=== PATIENT | male | born 1950 | race Caucasian/White ===

== ENCOUNTER 2020-09-18 12:48 | Emergency (ER) | payer OTHER ==
--- OUTSIDE RECORDS SUMMARY | 2020-09-18 12:53 | XMS REPORT | Continuity of Care Document ---
:1950 Author Organization [facility] t Address [address] [place] [address] Care Team Providers Name Role Phone Unavailable Unavailable Unavailable Payers Payer Name Policy Type Policy Number Effective Date Expiration Date S ource Problems This patient has no known problems. Allergies, Adverse Reactions, Alerts Allergy Allergy Status Severity Reaction(s) Onset Inactive Treating Comm ents Source Name Type Date Date Clinician No Known DA Active U 2020-0 [facility]30 Clear s 00:00: Arzola 00 [facility] No Known DA Active U 2020-0 [facility] Allergie 4-29 Clear s 00:00: Arzola 00 [facility] Medications This patient has no known medications. Procedures This patient has no known procedures. Results Test Description Test Time Test Comments Results Result Comments Source Novel Coronavirus 20182019-10-21 19:32:00 Test Item Value Reference Range Interpretation Comme nts Novel Coronavirus 2018 Negative Negative Posit veronica results are indicative of the Inhouse (test code = presenc e [id number]-4 RNA, clinical [id number]) correlation wit h patient historyand other diagnosti c information is necessary to de terminepatient infection status. Positiv e results do not rule outbacterial in fection or co-infection with other viru ses. Negative results do not preclude SA RS-CoV-2 infection andshould not b e used as the sole basis for patient man agementdecisions. Negative result s must be combined with otherclinical o bservations, patient history, and ep idemiologicalinformation. Detection of SA RS-CoV-2 RNA may be affected bysamp le collection methods, storage conditi ons, and/or stageof infection. Natali l RNA mutations, vaccinations, a ntiviraltherapeutics, antibiotics, ch emotherapeutic orimmunosuppres anand drugs have not been evaluated for e ffectson detection. Results are for the identification of SARS-CoV-2 RNA usingthe MembraneX M2000 System under th e FDA Emergency UseAuthorizatio n. The testing is performed by mindy rsonneltrained in the procedures for the MembraneX M2000 molecularKALo stic SARS-CoV-2 assay in vitro. Testing Criteria: Preprocedure Screening- XR CHEST 2 [id number] 11:06:00 FAX: Magdi Dennison MD [phone] [place]: St: PRE Name: CANELO DODD [facility] : 1950 Age/S: 69/M [address] [place] [address] Unit#: [id number] Loc: [place] [address] Phys: Magdi Carson MD Acct: [id number] Dis Date: Status: PRE SD C PHONE #: [phone] Exam Date: 10/21/2019 1023 FAX #: [phone] Reason: PRE-OP PENILE IMPLANT EXAMS: CPT CODE: [id number] XR CHEST 2 V [id number] Chest 2 view 10/21/2019 HISTORY: Preoperative exam. No prior exams are available for comparison FINDINGS: Right shoulder prosthesis is noted. Prominent aortic arch is noted. Heart size is at the upper limits of normal. Right lateral pleural thickening is noted. Old right rib fractures are present. Noacute consolidation or pleural effusion is present. No vascular congestion or interstitial edema is present. IMPRESSION: No acute cardiopulmonary process. SL: [id number] at 1106 Reported and signed by: Philip Bhakta M.D. CC: Magdi Carson MD Technologist: BILLY AlatorreR) Trnscrd Date/Time/By: 10/21/2019 (1106) : By: [email or web address] Orig Print D/T: S: 10/21/2019 (2952) PAGE 1 Signed ReportBASIC METABOLIC [id number] 10:08:00 Test Item Value Reference Range Interpretation Comments SODIUM (test code = NA) 128 mEq/L 134-147 L POTASSIUM (test code = 4.3 mEq/L 3.4-5.0 N K) CHLORIDE (test code = 96 mEq/L 100-108 L CL) CARBON DIOXIDE (test 26 mEq/L 21-33 N code = CO2) ANION GAP (test code = 10 0-20 N GAP) GLUCOSE (test code = 83 mg/dL 70-110 N GLU) BLOOD UREA NITROGEN 16 mg/dL 7-18 N (test code = BUN) GLOMERULAR FILTRATION 73.7 70-80 N Units of measure = RATE (test code = GFR) ml/mi n/1.73 m2 CREATININE (test code = 1.0 mg/dL 0.6-1.3 N CREAT) CALCIUM (test code = 9.6 mg/dL 8.0-10.5 N CA) PROTHROMBIN [id number] 10:07:00 Test Item Value Reference Range Interpretation Comments PROTHROMBIN TIME 11.5 SECONDS 9.3-12.9 N PATIENT (test code = PTP) INTERNATIONAL NORMAL 1.1 0.8-1.2 N TARGET RATIO (test code = INR BY IN DICATION INR) Indication INR1. Prophyl axis of venous thrombos is 2.0 - 3. 0 (orthopedic [place]), Prophylaxis of venous thrombos is (other than hig h-risk surgery), [place] tment of Deep Vein Thrombosis/Pulm onary Embolism, Preve ntion of systemic emb olism - Tissue heart va lves, Acute Myocardia l Infarction (to prevent systemic embo lism), Valvular heart disease, Atri al Fibrillation, Bileaflet mecha nical valve in aortic position.2. Mec hanical prosthetic valv es (high risk), 2.5 - 3.5 Presence of Lupus Anticoagu lant or Antiphospholi pid Antibodies, Pre vention of systemic e mbolism - Acute Myocard ial Infarction (t o prevent recurre nt infarct). THROMBOPLASTIN TIME [id number] 10:07:00 Test Item Value Reference Range Interpretation Comments THROMBOPLASTIN TIME 30.0 Seconds 25.0-39.5 N Ther apeutic PARTIAL (test code = Range: 50.4 - 88.3 PTT) Seconds Effective 10/07/2018 BASIC METABOLIC [id number] 10:06:00 Test Item Value Reference Range Interpretation Comments SODIUM (test code = NA) 128 mEq/L 134-147 L POTASSIUM (test code = K) 4.3 mEq/L 3.4-5.0 N CHLORIDE (test code = CL) 96 mEq/L 100-108 L CARBON DIOXIDE (test code = CO2) 26 mEq/L 21-33 N ANION GAP (test code = GAP) 10 0-20 N GLUCOSE (test code = GLU) 83 mg/dL 70-110 N BLOOD UREA NITROGEN (test code = 16 mg/dL 7-18 N BUN) GLOMERULAR FILTRATION RATE (test 70-80 code = GFR) CREATININE (test code = CREAT) mg/dL 0.6-1.3 CALCIUM (test code = CA) 9.6 mg/dL 8.0-10.5 N URINALYSIS [id number] 10:02:00 Test Item Value Reference Range Interpretation Comments UA COLOR (test code = COLU) YELLOW YEL/STRAW UA APPEARANCE (test code = CLEAR CLEAR APPU) UA GLUCOSE DIPSTICK (test code NEGATIVE NEGATIVE = DGLUU) UA BILIRUBIN DIPSTICK (test NEGATIVE NEGATIVE code = BILU) UA KETONE DIPSTICK (test code NEGATIVE NEGATIVE = KETU) UA SPECIFIC GRAVITY (test code 1.009 1.005-1.030 N = SGU) UA BLOOD DIPSTICK (test code = NEGATIVE NEGATIVE BECKA) UA PH DIPSTICK (test code = 6.0 5.0-7.0 N TISH) UA PROTEIN DIPSTICK (test code NEGATIVE NEGATIVE = PROU) UA UROBILINIOGEN DIPSTICK 0.2 mg/dL 0.2-1.0 (test code = URO) UA NITRITE DIPSTICK (test code NEGATIVE NEGATIVE = SNOW) UA LEUKOCYTE ESTERASE DIPSTICK NEGATIVE NEGATIVE (test code = LEUU) UA RBC (test code = RBCU) 0-3 RBC/HPF 0-3 UA WBC NO REFLEX (test code = 0-3 WBC/HPF 0-3 WBCUCL) UA BACTERIA (test code = BACU) NONE SEEN /HPF NONE SEEN UA SQUAMOUS CELLS (test code = NONE SEEN /HPF NONE SEEN SQU) UA SPERM (test code = SPERMU) 1+ /HPF NONE SEEN A CBC W/AUTO [id number] 09:57:00 Test Item Value Reference Range Interpretation Comments WHITE BLOOD CELL (test code = 5.80 x10 3/uL 4.5-11.0 N WBC) RED BLOOD CELL (test code = 5.08 x10 6/uL 4.00-5.60 N RBC) HEMOGLOBIN (test code = HGB) 15.2 g/dL 12.5-16.9 N HEMATOCRIT (test code = HCT) 44.3 % 37.5-50.7 N MEAN CELL VOLUME (test code = 87.2 fL 81.0-99.0 N MCV) MEAN CELL HGB (test code = MCH) 29.9 pg 27.0-33.0 N MEAN CELL HGB CONCETRATION 34.3 g/dL 33.0-37.0 N (test code = MCHC) RED CELL DISTRIBUTION WIDTH CV 12.7 % 11.5-14.5 N (test code = RDW) RED CELL DISTRIBUTION WIDTH SD 40.4 fL 37.0-54.0 N (test code = RDW-SD) PLATELET COUNT (test code = 221 x10 3/uL 150-400 N PLT) MEAN PLATELET VOLUME (test code 9.6 fL 7.0-9.0 H = MPV) NEUTROPHIL % (test code = NT%) 69.2 % 56.0-77.0 N IMMATURE GRANULOCYTE % (test 0.3 % 0.0-2.0 N code = IG%) LYMPHOCYTE % (test code = LY%) 17.2 % 14.0-32.0 N MONOCYTE % (test code = MO%) 10.2 % 4.8-9.0 H EOSINOPHIL % (test code = EO%) 2.2 % 0.3-3.7 N BASOPHIL % (test code = BA%) 0.9 % 0.0-2.0 N NUCLEATED RBC % (test code = 0.0 % 0-0 N NRBC%) NEUTROPHIL # (test code = NT#) 4.01 x10 3/uL 2.0-7.6 N IMMATURE GRANULOCYTE # (test 0.02 x10 3/uL 0.00-0.03 N code = IG#) LYMPHOCYTE # (test code = LY#) 1.00 x10 3/uL 1.0-3.8 N MONOCYTE # (test code = MO#) 0.59 x10 3/uL 0.1-0.8 N EOSINOPHIL # (test code = EO#) 0.13 x10 3/uL 0.0-0.2 N BASOPHIL # (test code = BA#) 0.05 x10 3/uL 0.0-0.2 N NUCLEATED RBC # (test code = 0.00 x10 3/uL 0.0-0.1 N NRBC#) MANUAL DIFF REQUIRED (test code NO = MDIFF)
--- NOTE | 2020-09-18 13:16 | ER ---
Nurse's Notes [facility] Name: Jerardo Tamez Age: 70 yrs Sex: Male : 1950 Arrival Date: 09/18/2020 Time: 12:52 Bed 4 Private MD: Diagnosis: Sciatica, right side Presentation: 09/18 13:00 Chief complaint: Patient states: R lower back pain that radiates down right leg for 3 ll1 months. Coronavirus screen: Client denies travel out of the [place] in the last 14 days. At this time, the client does not indicate any symptoms associated with coronavirus-19. Ebola Screen: Patient denies travel to an Ebola-affected area in the 21 days before illness onset. Initial Sepsis Screen: Does the patient meet any 2 criteria? No. Patient's initial sepsis screen is negative. Does the patient have a suspected source of infection? Yes: Bone or joint infection. Risk Assessment: Do you want to hurt yourself or someone else? Patient reports no desire to harm self or others. Onset of symptoms was July 21, 2020. 13:00 Method Of Arrival: Ambulatory ll1 13:00 Acuity: DENNY 4 ll1 Historical: - Allergies: 13:43 No Known Allergies; ss - PMHx: 13:00 Hypertension; PTSD; ll1 - PSHx: 13:00 Tonsillectomy; Adenoids; pnuemothorax; Hernia repair; R total shoulder; ll1 - Immunization history:: Flu vaccine is up to date. - Social history:: Smoking status: Patient denies any tobacco usage or history of. Screenin:27 Abuse screen: Denies threats or abuse. Denies injuries from another. Nutritional ss screening: No deficits noted. Tuberculosis screening: Never had TB. Fall Risk None identified. Assessment: 13:27 General: Appears uncomfortable, Behavior is calm, cooperative, Denies fever, feeling ss ill, fatigue, chills, Pt states, "I got [facility]. I just needed some kind of relief.". Pain: Complains of pain in right low back Pain radiates to right leg Pain currently is 10 out of 10 on a pain scale. Quality of pain is described as sharp, stabbing, Pain began 3 months ago Is continuous. Neuro: Level of Consciousness is awake, alert, obeys commands, Oriented to person, place, time, situation, [employer] Specialist are equal bilaterally. Cardiovascular: Capillary refill < 3 seconds is brisk in bilateral fingers Patient's skin is warm and dry. Respiratory: Airway is patent Respiratory effort is even, unlabored, Respiratory pattern is regular, symmetrical. GI: No signs and/or symptoms were reported involving the gastrointestinal system. Patient currently denies abdominal pain. : Denies burning with urination, inability to void, urinary frequency. EENT: Nares are clear. Derm: Skin is intact, is healthy with good turgor, Skin is dry, Skin is pink, warm \\T\\ dry. normal. Musculoskeletal: Circulation, motion, and sensation intact. Range of motion: intact in all extremities, Swelling absent. Vital Signs: 13:00 BP 190 / 94; Pulse 61; Resp 17; Temp 97.9; Pulse Ox 97% ; Weight 75.75 kg; Height 5 ft. ll1 7 in. (170.18 cm); Pain 10/10; 13:00 Body Mass Index 26.16 (75.75 kg, 170.18 cm) ll1 ED Course: 12:52 Patient arrived in ED. mr 13:00 Arm band placed on Patient placed in an exam room, on a stretcher. ll1 13:02 Triage completed. ll1 13:03 Rizwana Serrato FNP-C is [facility]. kb 13:03 Israel Dumont MD is Attending Physician. kb 13:18 Susannah Martin, NGUYEN is Primary Nurse. ca1 13:27 Patient has correct armband on for positive identification. Bed in low position. Call ss light in reach. Pt's service dog remains at bedside on leash. 13:27 No provider procedures requiring assistance completed. Patient did not have IV access ss during this emergency room visit. Administered Medications: 13:26 Drug: SOLU-Medrol 125 mg Route: IM; Site: left gluteus; ss 13:43 Follow up: Response: No adverse reaction ss Outcome: 13:15 Discharge ordered by . kb 13:43 Discharged to home ambulatory. ss 13:43 Condition: good 13:43 Discharge instructions given to patient, Instructed on discharge instructions, follow up and referral plans. medication usage, Demonstrated understanding of instructions, follow-up care, medications, Prescriptions given X 2. 13:44 Patient left the ED. ss Signatures: Rizwana Serrato, RAFAEL-Savanah BINDERY MACHINE SETTER/SET UP OPERATOR-Elaine Castro mr Maritza Adorno, RN RN ss Susannah Martin, RN RN ca1 Gaye Moreland RN RN ll1
--- NOTE | 2020-09-18 13:16 | EDPHYS ---
Physician Documentation [facility] Name: Jerardo Tamez Age: 70 yrs Sex: Male : 1950 Arrival Date: 09/18/2020 Time: 12:52 Bed 4 Private MD: ED Physician Israel Dumont HPI: 09/18 13:11 This 70 yrs old Male presents to ER via Ambulatory with complaints of Back kb Pain, Leg Pain. 13:11 The patient presents with pain that is acute. The symptoms are located in the right low kb back. Onset: The symptoms/episode began/occurred 3 month(s) ago. The pain radiates to the right hamstring. Associated signs and symptoms: The patient has no apparent associated signs or symptoms. The problem was sustained without known cause. Modifying factors: The patient symptoms are alleviated by nothing, the patient symptoms are aggravated by sitting. Severity of symptoms: At their worst the symptoms were moderate, in the emergency department the symptoms are unchanged. The patient has experienced similar episodes in the past, several times. The patient has been recently seen by a physician:. "My sciatica is acting up." Pt reports he was seen at the OR for this when it started 3 months ago. States they gave an injection of toradol and sent him home on diclofenac, but it hasn't helped. He went back last week and was given another injection of toradol, prescribed steroids this time that were supposed to come in the mail, but haven't. States he came in today because it is hard to sit on the right side due to pain. Denies injury/trauma. Denies urinary symptoms. Denies fever, numbness, tingling. . Historical: - Allergies: 13:43 No Known Allergies; ss - PMHx: 13:00 Hypertension; PTSD; ll1 - PSHx: 13:00 Tonsillectomy; Adenoids; pnuemothorax; Hernia repair; R total shoulder; ll1 - Immunization history:: Flu vaccine is up to date. - Social history:: Smoking status: Patient denies any tobacco usage or history of. ROS: 13:10 Constitutional: Negative for fever, chills, and weight loss, MS/Extremity: Negative for kb injury and deformity, Skin: Negative for injury, rash, and discoloration, Neuro: Negative for headache, weakness, numbness, tingling, and seizure. 13:10 Back: Positive for pain at rest, pain with movement, of the right low back. Exam: 13:10 Constitutional: This is a well developed, well nourished patient who is awake, alert, kb and in no acute distress. Head/Face: Normocephalic, atraumatic. Respiratory: Respirations even and unlabored. No increased work of breathing, no retractions or nasal flaring. Skin: Warm, dry with normal turgor. Normal color. MS/ Extremity: Pulses equal, no cyanosis. Neurovascular intact. Full, normal range of motion. Neuro: Awake and alert, GCS 15, oriented to person, place, time, and situation. Moves all extremities. Normal gait. 13:10 Back: pain, that is moderate, of the right low back, ROM is normal, normal spinal alignment noted, vertebral tenderness, is not appreciated. Vital Signs: 13:00 BP 190 / 94; Pulse 61; Resp 17; Temp 97.9; Pulse Ox 97% ; Weight 75.75 kg; Height 5 ft. ll1 7 in. (170.18 cm); Pain 10/10; 13:00 Body Mass Index 26.16 (75.75 kg, 170.18 cm) ll1 MDM: 13:03 Patient medically screened. kb 13:11 Data reviewed: vital signs, nurses notes. Data interpreted: Pulse oximetry: on room air kb is 97 %. Interpretation: normal. Counseling: I had a detailed discussion with the patient and/or guardian regarding: the historical points, exam findings, and any diagnostic results supporting the discharge/admit diagnosis, the need for outpatient follow up, a family practitioner, to return to the emergency department if symptoms worsen or persist or if there are any questions or concerns that arise at home. Administered Medications: 13:26 Drug: SOLU-Medrol 125 mg Route: IM; Site: left gluteus; ss 13:43 Follow up: Response: No adverse reaction ss Disposition: 15:03 Co-signature as Attending Physician, Israel Dumont MD. rn Disposition: 09/18/20 13:15 Discharged to Home. Impression: Sciatica, right side. - Condition is Stable. - Discharge Instructions: Sciatica, [id number]. - Prescriptions for Prednisone 20 mg Oral Tablet - take 1 tablet by ORAL route once daily for 5 days; 5 tablet. Cyclobenzaprine 10 mg Oral Tablet - take 1 tablet by ORAL route every 8 hours As needed; 21 tablet. - Medication Reconciliation Form, Thank You Letter, Antibiotic Education, Prescription Opioid Use form. - Follow up: Emergency Department; When: As needed; Reason: Worsening of condition. Follow up: Private Physician; When: 2 - 3 days; Reason: Recheck today's complaints, Continuance of care, Re-evaluation by your physician. Signatures: Rizwana Serrato, RAFAEL-C PLASTER LATHER-Israel Santoro MD MD rn Maritza Adorno RN RN ss Gaye Moreland RN RN ll1 Corrections: (The following items were deleted from the chart) 13:11 13:10 Constitutional: Negative for fever, chills, and weight loss, MS/Extremity: kb Negative for injury and deformity, Skin: Negative for injury, rash, and discoloration, Neuro: Negative for headache, weakness, numbness, tingling, and seizure, kb 13:44 13:15 09/18/2020 13:15 Discharged to Home. Impression: Sciatica, right side. Condition ss is Stable. Forms are Medication Reconciliation Form, Thank You Letter, Antibiotic Education, Prescription Opioid Use. Follow up: Emergency Department; When: As needed; Reason: Worsening of condition. Follow up: Private Physician; When: 2 - 3 days; Reason: Recheck today's complaints, Continuance of care, Re-evaluation by your physician. kb
[2020-09-18] MEDS ORDERED: METHYLPREDNISOLONE 125 MG INJ ONE (13:39)
[2020-09-18 13:56] VITALS: BP 190/94; TEMP 97.9; O2SAT 97
== END 2020-09-18 13:44 | disposition home or self-care (01) ==
LOC: ER 12:48
DX: M54.31 Sciatica, right side (principal); I10 Essential (primary) hypertension
CPT/HCPCS: 96372; 99283; J2930

== ENCOUNTER 2020-10-27 20:34 | Inpatient (IN) | payer OTHER ==
--- OUTSIDE RECORDS SUMMARY | 2020-10-27 20:37 | XMS REPORT | Continuity of Care Document ---
:1950 Author Organization [facility] t Address [address] [place] [address] Care Team Providers Name Role Phone Unavailable Unavailable Unavailable Payers Payer Name Policy Type Policy Number Effective Date Expiration Date S ource Problems This patient has no known problems. Allergies, Adverse Reactions, Alerts Allergy Allergy Status Severity Reaction(s) Onset Inactive Treating Comm ents Source Name Type Date Date Clinician No Known DA Active U 2020-0 [facility] Allergie 4-30 Clear s 00:00: Arzola 00 [facility] No Known DA Active U 2020-0 [facility] Allergie 4-29 Clear s 00:00: Arzola 00 [facility] Medications This patient has no known medications. Procedures This patient has no known procedures. Results Test Description Test Time Test Comments Results Result Comments Source Novel Coronavirus 20182019-10-21 19:32:00 Test Item Value Reference Range Interpretation Comme nts Novel Coronavirus 2018 Negative Negative Posit veronica results are indicative of the Inhouse (test code = presenc e [id number] RNA, clinical [id number]) correlation wit h patient historyand other diagnosti [...] for the identification of SARS-CoV-2 RNA usingthe Unified Inbox M2000 System under th e FDA Emergency UseAuthorizatio n. The testing is performed by mindy rsonneltrained in the procedures for the Unified Inbox M2000 molecularGreenleaf Book Groupo stic SARS-CoV-2 assay in vitro. Testing Criteria: Preprocedure Screening- XR CHEST 2 [id number] 11:06:00 FAX: Magdi Dennison MD [phone] [place]: St: PRE Name: CANELO DODD [facility] : 1950 Age/S: 69/M [address] [place] [address] Unit#: [id number] Loc: [place] [address] Phys: Magdi Carson MD Acct: [id number] Dis Date: Status: PRE SD C PHONE #: [phone] Exam Date: 10/21/2019 1023 FAX #: [phone] Reason: PRE-OP PENILE IMPLANT EXAMS: CPT CODE: [id number] XR CHEST 2 V [id number] Chest 2 view 10/21/2019 HISTORY: Preoperative exam. [...] present. IMPRESSION: No acute cardiopulmonary process. SL: [id number] at 1106 Reported and signed by: Philip Bhakta M.D. CC: Magdi Carson MD Technologist: BILLY AlatorreR) Trnscrd Date/Time/By: 10/21/2019 (1106) : By: [email or web address] Orig Print D/T: S: 10/21/2019 (7182) PAGE 1 Signed ReportBASIC METABOLIC [id number] 10:08:00 Test Item Value Reference Range Interpretation [...] = 9.6 mg/dL 8.0-10.5 N CA) PROTHROMBIN [id number] 10:07:00 Test Item Value Reference Range Interpretation [...] o prevent recurre nt infarct). THROMBOPLASTIN TIME [id number] 10:07:00 Test Item Value Reference Range Interpretation Comments THROMBOPLASTIN TIME 30.0 Seconds 25.0-39.5 N Ther apeutic PARTIAL (test code = Range: 50.4 - 88.3 PTT) Seconds Effective 10/07/2018 BASIC METABOLIC [id number] 10:06:00 Test Item Value Reference Range Interpretation [...] = CA) 9.6 mg/dL 8.0-10.5 N URINALYSIS [id number] 10:02:00 Test Item Value Reference Range Interpretation [...] 1+ /HPF NONE SEEN A CBC W/AUTO [id number] 09:57:00 Test Item Value Reference Range Interpretation [...]
[2020-10-27] MEDS ORDERED: IPRATROPIUM BROM 0.5MG/2.5ML ONE (20:59)
[2020-10-27] MEDS ORDERED: ALBUTEROL 2.5 MG/3 ML NEB SOL ONE (20:59)
--- NOTE | 2020-10-27 21:33 | RAD REPORT ---
EXAM DESCRIPTION: Jerod Single View10/27/2020 9:16 pm CLINICAL HISTORY: Cough COMPARISON: 2014 FINDINGS: Old right rib fractures. Right upper lobe is hazy. Additional bilateral pulmonary opacities probably chronic. The heart is normal size IMPRESSION: Right upper lobe is hazy. This may represent a pneumonia
[2020-10-27 21:45] LABS: Absolute Lymphocytes (CBC) 0.6 K/uL (0.7-4.9); Basophils % 0.2 % (0-1.3); Hematocrit 34.2 % (39.6-49.0); Lymphocytes % 6.2 % (15.3-44.8); MPV 8.4 fL (7.6-11.3); Protime INR 1.15; RBC Red Blood Cell Count 3.86 M/uL (4.33-5.43)
[2020-10-27 21:54] LABS: Arterial Blood Carboxyhemoglob 1.9 % (0-1.5); Blood Gas Oxyhemoglobin 85.4 % (94-97); Blood O2 Saturation 87.9 % (92-98.5)
[2020-10-27 21:59] LABS: Albumin 3.3 g/dL (3.4-5.0); Bilirubin Direct 0.2 mg/dL (0-0.2); Bilirubin Total 0.6 mg/dL (0.2-1.0); Protein, Total 7.5 g/dL (6.4-8.2); Troponin (Emerg Dept Use Only) 0.21 ng/mL (0.0-0.045)
[2020-10-27 22:04] LABS: Magnesium 3.9 mg/dL (1.8-2.4)
[2020-10-27 22:24] LABS: SARS-COV-2 RT PCR NEGATIVE (NEGATIVE)
[2020-10-27 22:32] LABS: Blood Morphology Comment NOT SEEN (NOT SEEN); Platelet Estimate ADEQ
[2020-10-27] MEDS ORDERED: CEFTRIAXONE/SWI 1gm 1 GM/10 ML SYR ONE (22:38)
[2020-10-27] MEDS ORDERED: NA CHLORIDE 0.9% 250 ML ONE (22:38)
[2020-10-27] MEDS ORDERED: AZITHROMYCIN 500 MG INJ IVPB ONE (22:38)
--- NOTE | 2020-10-27 23:21 | EDPHYS ---
Physician Documentation [facility] Name: Jerardo Tamez Age: 70 yrs Sex: Male : 1950 Arrival Date: 10/27/2020 Time: 20:43 Bed 2 Private MD: ED Physician Yazan Blanc HPI: 10/27 20:59 This 70 yrs old Male presents to ER via EMS with complaints of Shortness of mh7 Breath. Generalized Weakness. 20:59 The patient has shortness of breath at rest. Onset: The symptoms/episode began/occurred mh7 at an unknown time. Duration: The symptoms are continuous, and are unchanged since they started. The patient's shortness of breath is aggravated by coughing, light activity, is alleviated by nothing. Associated signs and symptoms: Pertinent positives: productive cough, generalized weakness, Pertinent negatives: chest pain, non-productive cough, diaphoresis, dizziness, fever, hemoptysis, loss of consciousness, nausea, numbness in extremities, visual changes, vomiting. Severity of symptoms: At their worst the symptoms were moderate today, in the emergency department the symptoms are unchanged. The patient has experienced similar episodes in the past, multiple times. Historical: - Allergies: 20:50 No Known Allergies; jm8 - PMHx: 20:50 Hypertension; PTSD; COPD; jm8 - Immunization history:: Adult Immunizations up to date. - Social history:: Smoking status: unknown. ROS: 20:59 Constitutional: Negative for fever, chills, and weight loss, Eyes: Negative for injury, mh7 pain, redness, and discharge, ENT: Negative for injury, pain, and discharge, Neck: Negative for injury, pain, and swelling, Cardiovascular: Negative for chest pain, palpitations, and edema, Abdomen/GI: Negative for abdominal pain, nausea, vomiting, diarrhea, and constipation, Back: Negative for injury and pain, : Negative for injury, bleeding, discharge, and swelling, MS/Extremity: Negative for injury and deformity, Skin: Negative for injury, rash, and discoloration. 20:59 Psych: Negative for depression, anxiety, suicide ideation, homicidal ideation, and hallucinations, Allergy/Immunology: Negative for hives, rash, and allergies, Endocrine: Negative for neck swelling, polydipsia, polyuria, polyphagia, and marked weight changes, Hematologic/Lymphatic: Negative for swollen nodes, abnormal bleeding, and unusual bruising. 20:59 Neuro: Negative for altered mental status, dizziness, gait disturbance, headache, hearing loss, loss of consciousness, numbness, seizure activity, speech changes, syncope, near syncope, tingling, tinnitus, tremor, visual changes. Exam: 20:59 Head/Face: Normocephalic, atraumatic. Eyes: Pupils equal round and reactive to light, mh7 extra-ocular motions intact. Lids and lashes normal. Conjunctiva and sclera are non-icteric and not injected. Cornea within normal limits. Periorbital areas with no swelling, redness, or edema. Neck: Trachea midline, no thyromegaly or masses palpated, and no cervical lymphadenopathy. Supple, full range of motion without nuchal rigidity, or vertebral point tenderness. No Meningismus. Chest/axilla: Normal chest wall appearance and motion. Nontender with no deformity. No lesions are appreciated. Cardiovascular: Regular rate and rhythm with a normal S1 and S2. No gallops, murmurs, or rubs. Normal PMI, no JVD. No pulse deficits. 20:59 Abdomen/GI: Soft, non-tender, with normal bowel sounds. No distension or tympany. No guarding or rebound. No evidence of tenderness throughout. Back: No spinal tenderness. No costovertebral tenderness. Full range of motion. Skin: Warm, dry with normal turgor. Normal color with no rashes, no lesions, and no evidence of cellulitis. MS/ Extremity: Pulses equal, no cyanosis. Neurovascular intact. Full, normal range of motion. Neuro: Awake and alert, GCS 15, oriented to person, place, time, and situation. Cranial nerves II-XII grossly intact. Motor strength 5/5 in all extremities. Sensory grossly intact. Cerebellar exam normal. Normal gait. Psych: Awake, alert, with orientation to person, place and time. Behavior, mood, and affect are within normal limits. 20:59 Constitutional: The patient appears alert, awake, in obvious distress, mildly distressed. 20:59 Respiratory: mild respiratory distress is noted, Respirations: prolonged exhalation, that is moderate, Breath sounds: decreased breath sounds, that are moderate, are scattered, rhonchi, that are moderate, are scattered, Respiratory rate: 24 Vital Signs: 20:45 BP 116 / 60; Pulse 84; Resp 24; Temp 100.1; Pulse Ox 49% on R/A; Weight 74.84 kg; [facility] Height 5 ft. 9 in. (175.26 cm); Pain 0/10; 21:25 BP 95 / 60; Pulse 75; Resp 16; Pulse Ox 96% on BiPAP; [facility] 10/28 00:12 BP 113 / 78; Pulse 70; Resp 16; Pulse Ox 100% on BiPAP; [facility] 10/27 20:45 Body Mass Index 24.37 (74.84 kg, 175.26 cm) [facility] MDM: 10/27 23:11 Differential diagnosis: Anemia Anxiety Reaction asthma, Bronchitis CHF exacerbation, [facility] Chronic Obstructive Pulmonary Disease. 23:15 Data reviewed: vital signs, nurses notes, EMS record, old medical records, lab test [facility] result(s), cardiac enzymes, CBC, electrolytes, urinalysis, EKG, radiologic studies, CT scan, plain films. 23:19 Data interpreted: Pulse oximetry: on BiPAP is 99 %. Interpretation: acceptable. [facility] Counseling: I had a detailed discussion with the patient and/or guardian regarding: the historical points, exam findings, and any diagnostic results supporting the discharge/admit diagnosis, lab results, radiology results, the need for further work-up and treatment in the hospital. Response to treatment: the patient's symptoms have markedly improved after treatment. 23:21 Patient medically screened. [facility] 10/27 20:44 Order name: Basic Metabolic Panel [facility] 10/27 20:44 Order name: CBC with Diff [facility] 10/27 20:44 Order name: LFT's [facility] 10/27 20:44 Order name: Magnesium [facility] 10/27 20:44 Order name: NT PRO-BNP; Complete Time: 22:11 [facility] 10/27 20:44 Order name: PT-INR; Complete Time: 22:11 [facility] 10/27 20:44 Order name: Troponin (emerg Dept Use Only); Complete Time: 22:11 [facility] 10/27 20:44 Order name: Basic Metabolic Panel; Complete Time: 22:11 [facility] 10/27 20:44 Order name: CBC with Automated Diff; Complete Time: 22:54 [facility] 10/27 20:44 Order name: Liver (Hepatic) Function; Complete Time: 22:11 [facility] 10/27 20:44 Order name: Magnesium; Complete Time: 22:11 [facility] 10/27 21:35 Order name: Arterial Blood Gas; Complete Time: 22:11 [facility] 10/27 20:44 Order name: XRAY Chest (1 view); Complete Time: 22:11 [facility] 10/27 20:44 Order name: EKG; Complete Time: 20:45 [facility] 10/27 20:44 Order name: Cardiac monitoring; Complete Time: 21:37 [facility] 10/27 20:58 Order name: CT Head Brain wo Cont [facility] 10/27 22:08 Order name: Manual Differential; Complete Time: 22:54 [facility] 10/27 22:13 Order name: Blood Culture Adult (2) [facility] 10/27 22:13 Order name: Lactate; Complete Time: 23:05 [facility] 10/27 22:13 Order name: Procalcitonin [facility] 10/27 22:15 Order name: Blood Culture [facility] 10/27 22:24 Order name: COVID-19/FLU A+B; Complete Time: 22:54 [facility] 10/27 23:37 Order name: CONS Physician Consult [facility] 10/28 00:07 Order name: Urine Dipstick-Ancillary [facility] 10/27 20:44 Order name: EKG - Nurse/Tech; Complete Time: 21:37 [facility] 10/27 20:44 Order name: IV Saline Lock; Complete Time: 21:23 [facility] 10/27 20:44 Order name: Labs collected and sent; Complete Time: 21:23 [facility] 10/27 20:44 Order name: O2 Per Protocol; Complete Time: 21:23 [facility] 10/27 20:44 Order name: O2 Sat Monitoring; Complete Time: 21:24 7 Administered Medications: Discontinued: Zithromax (azithromycin) 500 mg IVPB once over 1 hrs; mix in 250 mL NS 20:45 Drug: Albuterol - atroVENT (ipratropium) (3:1) (2.5 mg - 0.5 mg) 3 ml Route: Nebulizer; jb4 23:24 Follow up: Response: No adverse reaction; Marked relief of symptoms [facility] 22:26 Drug: Rocephin (cefTRIAXone) 1 grams Route: IV; Rate: per protocol; Site: left 8 antecubital; 23:25 Follow up: Response: No adverse reaction jm8 22:26 Drug: Zithromax (azithromycin) 500 mg Route: IVPB; Infused Over: 1 hrs; Site: left [facility] antecubital; 10/28 01:09 Follow up: Response: No adverse reaction [facility] 00:19 Drug: Aspirin Chewable Tablet 324 mg Route: PO; [facility] 01:10 Follow up: Response: No adverse reaction [facility] Disposition: 10/27/20 23:21 Hospitalization ordered by Fara Caputo for Inpatient Admission. Preliminary diagnosis are Pneumonia, Hypoxia, Elevated Troponin Level. - Bed requested for Telemetry/MedSurg (Inpatient). - Status is Inpatient Admission. 8 - Condition is Stable. - Problem is new. - Symptoms have improved. Signatures: Dispatcher [employer] EDGA Shawna Avila, NGUYEN RN tl1 Jerardo Quiroz RN RN jb4 Yazan Blanc MD MD 7 Juan Contreras RN RN jm8 Corrections: (The following items were deleted from the chart) 10/27 21:37 20:46 Influenza Screen (A \T\ B)+BA.LAB.BRZ ordered. EDGA EDGA 21:37 20:46 CORONAVIRUS+MR.LAB.BRZ ordered. EDGA EDGA 10/28 00:10 10/27 23:21 Hospitalization Ordered by Fara Caputo MD for Inpatient Admission. tl1 Preliminary diagnosis is Pneumonia, Hypoxia; Elevated Troponin Level. Bed requested for Telemetry/MedSurg (Inpatient). Status is Inpatient Admission. Condition is Stable. Problem is new. Symptoms have improved. [facility] 10/28 01:09 00:10 10/27/2020 23:21 Hospitalization Ordered by Fara aCputo MD for Inpatient [facility] Admission. Preliminary diagnosis is Pneumonia, Hypoxia; Elevated Troponin Level. Bed requested for Telemetry/MedSurg (Inpatient). Status is Inpatient Admission. Condition is Stable. Problem is new. Symptoms have improved. tl1
--- NOTE | 2020-10-27 23:21 | ER ---
Nurse's Notes [facility] Name: Jerardo Tamez Age: 70 yrs Sex: Male : 1950 Arrival Date: 10/27/2020 Time: 20:43 Bed 2 Private MD: Diagnosis: Pneumonia, Hypoxia;Elevated Troponin Level Presentation: 10/27 20:45 Chief complaint: EMS states: patient's spouse states patient has been complaining of jm8 generalized weakness for a while now. Got worse today. Patient is slow to respond. Coronavirus screen: Client denies travel out of the [place] in the last 14 days. Client presents with at least one sign or symptom that may indicate coronavirus-19. Standard/surgical mask placed on the client. Provider contacted for isolation considerations. Ebola Screen: Patient negative for fever greater than or equal to 101.5 degrees Fahrenheit, and additional compatible Ebola Virus Disease symptoms Patient denies exposure to infectious person. Patient denies travel to an Ebola-affected area in the 21 days before illness onset. Initial Sepsis Screen: Does the patient meet any 2 criteria?. 20:45 Method Of Arrival: EMS: [facility]8 20:48 Initial Sepsis Screen: Does the patient meet any 2 criteria? RR > 20 per min. Altered jm8 Mental Status. Does the patient have a suspected source of infection? No. Patient's initial sepsis screen is negative. Risk Assessment: Do you want to hurt yourself or someone else? Patient reports no desire to harm self or others. Onset of symptoms was October 27, 2020. Care prior to arrival: None. 20:48 Acuity: DENNY 2 jm8 Historical: - Allergies: 20:50 No Known Allergies; jm8 - PMHx: 20:50 Hypertension; PTSD; COPD; jm8 - Immunization history:: Adult Immunizations up to date. - Social history:: Smoking status: unknown. Screenin:54 Abuse screen: Denies threats or abuse. Denies injuries from another. Nutritional jm8 screening: No deficits noted. Tuberculosis screening: No symptoms or risk factors identified. Fall Risk None identified. Assessment: 20:50 General: Appears in no apparent distress. comfortable, Behavior is calm, cooperative, jm8 appropriate for age, drowsy. Pain: Denies pain. Neuro: Level of Consciousness is alert, obeys commands, lethargic, Oriented to person, place, time. Cardiovascular: Reports fatigue, Capillary refill < 3 seconds. Respiratory: Reports shortness of breath at rest generalized weakness Airway is patent Respiratory effort is even, unlabored, Respiratory pattern is regular, symmetrical, Patient placed on BiPAP:. GI: No deficits noted. : No deficits noted. EENT: No deficits noted. Derm: No deficits noted. Derm: Skin is intact, is healthy with good turgor, Skin is pink, warm \T\ dry. normal, Skin temperature is warm. Musculoskeletal: No deficits noted. Musculoskeletal: Range of motion: intact in all extremities. 21:36 Respiratory: Patient placed on BiPAP: Inspiratory Pressure: 18 Expiratory (EPAP) [facility] Pressure: 8 FiO2%: 50 Respiratory Rate: 18. 21:36 Cardiovascular: Rhythm is sinus rhythm. [facility] Vital Signs: 20:45 BP 116 / 60; Pulse 84; Resp 24; Temp 100.1; Pulse Ox 49% on R/A; Weight 74.84 kg; [facility] Height 5 ft. 9 in. (175.26 cm); Pain 0/10; 21:25 BP 95 / 60; Pulse 75; Resp 16; Pulse Ox 96% on BiPAP; [facility] 10/28 00:12 BP 113 / 78; Pulse 70; Resp 16; Pulse Ox 100% on BiPAP; [facility] 10/27 20:45 Body Mass Index 24.37 (74.84 kg, 175.26 cm) [facility] ED Course: 10/27 20:43 Patient arrived in ED. [facility] 20:43 Yazan Blanc MD is Attending Physician. [facility] 20:49 Triage completed. 8 20:55 Patient has correct armband on for positive identification. Bed in low position. Call [facility] light in reach. Side rails up X2. 20:55 Arm band placed on right wrist. jm8 21:16 XRAY Chest (1 view) In Process Unspecified. EDMS 21:26 Inserted saline lock: 18 gauge in left antecubital area, using aseptic technique. jm8 22:44 CT Head Brain wo Cont In Process Unspecified. EDMS 23:19 Fara Caputo MD is Hospitalizing Provider. [facility] 23:25 Vivienne Garcia, NGUYEN is Primary Nurse. 10/28 01:07 No provider procedures requiring assistance completed. Patient admitted, IV remains in [facility] place. Administered Medications: Discontinued: Zithromax (azithromycin) 500 mg IVPB once over 1 hrs; mix in 250 mL NS 10/27 20:45 Drug: Albuterol - atroVENT (ipratropium) (3:1) (2.5 mg - 0.5 mg) 3 ml Route: Nebulizer; [facility] 23:24 Follow up: Response: No adverse reaction; Marked relief of symptoms [facility] 22:26 Drug: Rocephin (cefTRIAXone) 1 grams Route: IV; Rate: per protocol; Site: left [facility] antecubital; 23:25 Follow up: Response: No adverse reaction [facility] 22:26 Drug: Zithromax (azithromycin) 500 mg Route: IVPB; Infused Over: 1 hrs; Site: left [facility] antecubital; 10/28 01:09 Follow up: Response: No adverse reaction [facility] 00:19 Drug: Aspirin Chewable Tablet 324 mg Route: PO; [facility] 01:10 Follow up: Response: No adverse reaction [facility] Outcome: 10/27 23:21 Decision to Hospitalize by Provider. [facility] 10/28 01:08 Admitted to Med/surg accompanied by nurse, via stretcher. [facility] Condition: good Instructed on the need for admit. 01:09 Patient left the ED. [facility] Signatures: Dispatcher [employer] Vivienne Mccormick, NGUYEN CEDILLO Jerardo Quiroz RN RN [facility] Yazan Blanc MD MD [facility] Juan Contreras RN RN [facility]
[2020-10-27] MEDS ORDERED: ASPIRIN 81 MG CHEWABLE TABLET ONE (23:45)
[2020-10-28 00:07] LABS: Urine Blood Trace-intact (Negative); Urine Glucose Negative (Negative); Urine Protein 2+ (Negative); Urine Specific Gravity 1.025 (1.005-1.030)
[2020-10-28] MEDS ORDERED: ACETAMINOPHEN 500 MG TAB PO PRN (01:23)
[2020-10-28] MEDS ORDERED: NA CHLORIDE 0.9% 1,000 ML IV SCH ×3 (01:23→21:08)
[2020-10-28] MEDS ORDERED: BENZONATATE 100 MG CAP PO PRN (01:23)
[2020-10-28] MEDS ORDERED: ONDANSETRON 4 MG/2 ML VIAL IV PRN (01:23)
[2020-10-28 01:29] VITALS: BMI 22.6
[2020-10-28] MEDS: IPRATROPIUM BROM 0.5MG/2.5ML NEB SCH ×4 (01:50→19:40)
[2020-10-28] MEDS: METHYLPREDNISOLONE 40 MG INJ IV SCH ×4 (02:24→17:53)
[2020-10-28] MEDS: MORPHINE 2 MG/ML SYR IV PRN ×3 (02:25→17:52)
[2020-10-28] MEDS: HEPARIN 5000 UNIT/ML 1 ML VIAL SQ SCH ×3 (02:25→09:59)
--- NOTE | 2020-10-28 03:00 | P.HP ---
Certification for Inpatient Patient admitted to: Inpatient With expected LOS: >2 Midnights Patient will require the following post-hospital care: None Practitioner: I am a practitioner with admitting privileges, knowledge of patient current condition, hospital course, and medical plan of care. Services: Services provided to patient in accordance with Admission requirements found in Title 42 Section 412.3 of the Code of Federal Regulations <Ashok Rubio - Last Filed: 10/28/20 02:54> Patient History Date of Service: 10/28/20 Reason for admission: pneumonia History of Present Illness: Mr. Tamez is a 70 yo M with COPD and HTN here today for increased SOB and HATFIELD for the past week. Sats of 49% on arrival, improved on BiPAP. He reports cough productive of green sputum, wheezing, and malaise. Denies nausea, vomiting, diarrhea, night sweats and chills. COVID negative. CXR consistent with pneumonia. He says he has been feeling weak for the past 4 months. Na 128. Cl 89. BUN 41. Cr 1.89. GFR 35. Mg 3.9. Ca 10.5. BNP 1049. procal 3.47. trop 0.21. Urine dipstick - blood, 2+ protein. - Past Medical/Surgical History Has patient received pneumonia vaccine in the past: No -: HTN,PTSD,COPD Past Surgical History: Reviewed- Non-Contributory - Family History Family History: Reviewed- Non-Contributory - Social History Smoking Status: Never smoker Alcohol use: No CD- Drugs: No Caffeine use: No Place of Residence: Home <Ashok Rubio - Last Filed: 10/28/20 02:54> Date of Service: 10/28/20 <Fara Caputo - Last Filed: 10/30/20 10:00> Allergies No Known Allergies Allergy (Verified 10/28/20 02:08) Review of Systems General: Weakness, Malaise, As per HPI Eyes: Unremarkable ENT: Unremarkable Respiratory: Cough, Shortness of Breath, SOB with Excertion, Sputum, Wheezing, As per HPI Cardiovascular: Unremarkable Gastrointestinal: Unremarkable Genitourinary: Unremarkable Musculoskeletal: Leg Pain (sciatica) Integumentary: Unremarkable Neurological: Unremarkable Lymphatics: Unremarkable <Ashok Rubio - Last Filed: 10/28/20 02:54> Physical Examination - Vital Signs Temperature: 100.1 F Blood Pressure: 113/78 Pulse: 70 Respirations: 16 - Physical Exam General: Alert, Oriented x3, Cooperative, Other (on BiPAP) HEENT: Atraumatic, Normocephalic, PERRLA, Mucous membr. moist/pink, EOMI, Sclerae nonicteric Neck: Supple, 2+ carotid pulse no bruit, JVD not distended, No Thyromegaly, No LAD Respiratory: Diminished, Rhonchi/gurgles Cardiovascular: No edema, Normal pulses, Regular rate/rhythm, Normal S1 S2, No gallops, No rubs, No murmurs Capillary refill: <2 Seconds Gastrointestinal: Normal bowel sounds, Soft and benign, Non-distended, No ascites, No tenderness, No masses, No rebound, No guarding Musculoskeletal: No clubbing, No swelling, No contractures, No erythema, No tenderness, No warmth Integumentary: No rashes, No breakdown, No significant lesion, No tenderne ss/swelling, No erythema, No warmth, No cyanosis Neurological: Normal strength at 5/5 x4 extr, Normal tone, Sensation intact, Cranial nerves 3-12 intact, Normal affect Lymphatics: No axilla or inguinal lymphadenopathy - Studies Laboratory Data (last 24 hrs) 10/27/20 21:19: PT 13.2 H, INR 1.15 10/27/20 21:19: WBC 9.10, Hgb 12.0 L, Hct 34.2 L, Plt Count 236 10/27/20 21:19: Sodium 128 L, Potassium 5.0, BUN 41 H, Creatinine 1.89 H, Glucose 101, Magnesium 3.9 H*, Total Bilirubin 0.6, AST 42 H, ALT 33, Alkaline Phosphatase 68 <Ashok Rubio S - Last Filed: 10/28/20 02:54> Assessment and Plan - Problems (Diagnosis) (1) Pneumonia Current Visit: Yes Status: Acute Qualifiers: Pneumonia type: due to unspecified organism Laterality: right Lung location: upper lobe of lung Qualified Code(s): J18.9 - Pneumonia, unspecified organism (2) Hypoxia Current Visit: Yes Status: Acute (3) RAJWINDER (acute kidney injury) Current Visit: Yes Status: Acute (4) Hypermagnesemia Current Visit: Yes Status: Acute (5) Elevated troponin Current Visit: Yes Status: Acute (6) COPD (chronic obstructive pulmonary disease) Current Visit: Yes Status: Chronic Qualifiers: COPD type: unspecified COPD Qualified Code(s): J44.9 - Chronic obstructive pulmonary disease, unspecified (7) HTN (hypertension) Current Visit: Yes Status: Chronic Qualifiers: Hypertension type: essential hypertension Qualified Code(s): I10 - Essential (primary) hypertension - Plan Pulm consulted, respiratory therapy consulted continue BiPAP as needed, sputum culture and blood culture pending Ddimer pending, will consider VQ scan in the AM breathing treatments q6hr, IV steroids, IV antibiotics trend troponin BP currently low to stable, hold home medications nephrology consulted, continue with IVF, repeat BMP in the AM on telemetry urinalysis pending iron panel, b12 and folate pending Discharge Plan: Home Plan to discharge in: 72 Hours - Advance Directives Does patient have a Living Will: No Does patient have a Durable POA for Healthcare: No - Code Status/Comfort Care Code Status Assessed: Yes (full code) Critical Care: No Time Spent Managing Pts Care (In Minutes): 70 <Ashok Rubio - Last Filed: 10/28/20 02:54> Date of Service: 10/28/20 Chart reviewed and agree with plan of care as mentioned below <Fara Caputo - Last Filed: 10/30/20 10:00>
[2020-10-28 06:18] LABS: Albumin 2.8 g/dL (3.4-5.0); Bilirubin Total 0.5 mg/dL (0.2-1.0); Phosphorus 4.7 mg/dL (2.5-4.9); Potassium 4.9 mmol/L (3.5-5.1); Protein, Total 6.7 g/dL (6.4-8.2)
[2020-10-28 06:21] LABS: Magnesium 3.7 mg/dL (1.8-2.4)
[2020-10-28 06:28] LABS: Absolute Lymphocytes (CBC) 0.4 K/uL (0.7-4.9); Basophils % 0.4 % (0-1.3); Hematocrit 32.6 % (39.6-49.0); Lymphocytes % 5.4 % (15.3-44.8); MPV 8.7 fL (7.6-11.3); RBC Red Blood Cell Count 3.66 M/uL (4.33-5.43)
[2020-10-28 06:44] LABS: Ferritin 531.3 ng/mL (26-388); Folic Acid, (Folate) > 20.0 ng/mL (3.1-17.5); Transferrin 159 mg/dL (200-360)
--- NOTE | 2020-10-28 07:49 | EKG ---
Test Date: 2020-10-27 Test Time: 21:30:38 Student: MEASUREMENT RESULTS: Intervals: Rate: 73 [place]: 198 QRSD: 98 QT: 398 QTc: 438 [place]: P: 42 [place]: 198 QRS: -42 T: 26 INTERPRETIVE STATEMENTS: Normal sinus rhythm Left axis deviation Possible Lateral infarct, age undetermined Abnormal ECG No previous ECG available for comparison Electronically Signed On 10-28-20 07:48:15 CDT by Mikel Bethea
--- NOTE | 2020-10-28 10:06 | P.CNS ---
Date of Consult: 10/28/20 Reason for Consult: Possible pneumonia Chief Complaint: pneumonia History of Present Illness: Patient is 70 years of age had a as a history of COPD all the has not smoked for the past 32 years was admitted with severe hypoxemia currently he has been having some back problems he has been treated in [place] is been coughing more shortness of breath past admitted with possible pneumonia still very weak He was on oxygen before Allergies No Known Allergies Allergy (Verified 10/28/20 02:08) Home Medications: Amitriptyline HCl 100 mg PO DAILY 10/28/20 Cyanocobalamin [Vitamin B-12] 1,000 mcg PO DAILY 10/28/20 Fluoxetine HCl 20 mg PO TID 10/28/20 Hydralazine HCl 10 mg PO TID 10/28/20 Metoprolol Succinate [Toprol Xl] 25 mg PO DAILY 10/28/20 Mirtazapine 15 mg PO DAILY 10/28/20 Pregabalin 150 mg PO TID 10/28/20 - Past Medical/Surgical History -: HTN,PTSD,COPD - Social History Smoking Status: Unknown if ever smoked Alcohol use: No CD- Drugs: No Caffeine use: No Place of Residence: Home Review of Systems 10-point ROS is otherwise unremarkable General: Weakness Respiratory: Cough, Shortness of Breath Physical Examination Temp Pulse Resp BP Pulse Ox 97.3 F 78 18 97/54 L 95 10/28/20 04:00 10/28/20 04:00 10/28/20 04:00 10/28/20 04:00 10/28/20 04:00 General: Alert, In no apparent distress, Oriented x3 Neck: Supple Respiratory: Clear to auscultation bilaterally Cardiovascular: No edema, Regular rate/rhythm Laboratory Data (last 24 hrs) 10/27/20 21:19: PT 13.2 H, INR 1.15 10/27/20 21:19: WBC 9.10, Hgb 12.0 L, Hct 34.2 L, Plt Count 236 10/27/20 21:19: Sodium 128 L, Potassium 5.0, BUN 41 H, Creatinine 1.89 H, Glucose 101, Magnesium 3.9 H*, Total Bilirubin 0.6, AST 42 H, ALT 33, Alkaline Phosphatase 68 - Problems (1) Respiratory failure Current Visit: Yes Status: Acute Plan: Patient is 70 years of age admitted with weakness respiratory failure significant hypoxemia has some haziness in the right upper lobe acute onset of respiratory distress eased has smoked for the past 30 years has been off oxygen labs reviewed creatinine elevated possibly chronic unable to do a CT angiogram high risk for a pulmonary embolism fully anti coagulated the patient hopefully is kidney function will improve would plan to do a CT angiogram or V/Q scan renal function improving the some back problems recently continue with Rocephin the Evaristo PA lateral chest x-ray
[2020-10-28] MEDS: APIXABAN 5 MG TABLET PO SCH ×2 (13:05→22:17)
--- NOTE | 2020-10-28 13:11 | RAD REPORT ---
EXAM DESCRIPTION: RAD - Chest Single View - 10/28/2020 1:00 pm CLINICAL HISTORY: Possible pneumonia hypoxemia Chest pain. COMPARISON: Chest Single View dated 10/27/2020; THORAX WO CONTRAST dated 12/12/2014 FINDINGS: Portable technique limits examination quality. Little overall change is seen in the aeration of lungs since prior study. The heart is normal in size . Right total shoulder arthroplasty. IMPRESSION: Stable chest since 10/27/2020.
--- NOTE | 2020-10-28 17:36 | P.CNS ---
Date of Consult: 10/28/20 Reason for Consult: Hyponatremia/ CKD Requesting Physician: Fara Caputo Chief Complaint: pneumonia History of Present Illness: Mr. Tamez is a 70 yo M with COPD and HTN here today for increased SOB and HAT[place] for the past week. Sats of 49% on arrival, improved on BiPAP. He reports cough productive of green sputum, wheezing, and malaise. Denies nausea, vomiting, diarrhea, night sweats and chills. COVID negative. CXR consistent with pneumonia. He says he has been feeling weak for the past 4 months. Reports taking lots of NSAIDs for his pain prior to admission. [facility] Denies difficulty with urination but reports dark urine. 20:59 This 70 yrs old Male presents to ER via EMS with complaints of Shortness of mh7 Breath. Generalized Weakness. 20:59 The patient has shortness of breath at rest. Onset: The symptoms/episode began/occurred mh7 at an unknown time. Duration: The symptoms are continuous, and are unchanged since they started. The patient's shortness of breath is aggravated by coughing, light activity, is alleviated by nothing. Associated signs and symptoms: Pertinent positives: productive cough, generalized weakness, Pertinent negatives: chest pain, non-productive cough, diaphoresis, dizziness, fever, hemoptysis, loss of consciousness, nausea, numbness in extremities, visual changes, vomiting. Severity of symptoms: At their worst the symptoms were moderate today, in the emergency department the symptoms are unchanged. The patient has experienced similar episodes in the past, multiple times. Allergies No Known Allergies Allergy (Verified 10/28/20 02:08) Home Medications: Amitriptyline HCl 100 mg PO DAILY 10/28/20 Cyanocobalamin [Vitamin B-12] 1,000 mcg PO DAILY 10/28/20 Fluoxetine HCl 20 mg PO TID 10/28/20 Hydralazine HCl 10 mg PO TID 10/28/20 Metoprolol Succinate [Toprol Xl] 25 mg PO DAILY 10/28/20 Mirtazapine 15 mg PO DAILY 10/28/20 Pregabalin 150 mg PO TID 10/28/20 - Past Medical/Surgical History -: HTN,PTSD,COPD - Social History Smoking Status: Unknown if ever smoked Alcohol use: No CD- Drugs: No Caffeine use: No Place of Residence: Home Review of Systems 10-point ROS is otherwise unremarkable General: Weakness, Malaise Respiratory: Shortness of Breath Physical Examination Temp Pulse Resp BP Pulse Ox 97.4 F 67 18 103/69 96 10/28/20 12:00 10/28/20 12:00 10/28/20 13:05 10/28/20 12:00 10/28/20 13:05 General: Oriented x3, Cooperative, Mild distress HEENT: Atraumatic Neck: Supple Respiratory: Crackles/rales Cardiovascular: Regular rate/rhythm Gastrointestinal: Soft and benign, Non-distended Musculoskeletal: No clubbing, No contractures Integumentary: No cyanosis Neurological: Normal speech Laboratory Data (last 24 hrs) 10/27/20 21:19: PT 13.2 H, INR 1.15 10/27/20 21:19: WBC 9.10, Hgb 12.0 L, Hct 34.2 L, Plt Count 236 10/27/20 21:19: Sodium 128 L, Potassium 5.0, BUN 41 H, Creatinine 1.89 H, Glucose 101, Magnesium 3.9 H*, Total Bilirubin 0.6, AST 42 H, ALT 33, Alkaline Phosphatase 68 Imagings Data: EXAM DESCRIPTION: RAD - Chest Single View - 10/28/2020 1:00 pm CLINICAL HISTORY: Possible pneumonia hypoxemia Chest pain. COMPARISON: Chest Single View dated 10/27/2020; THORAX WO CONTRAST dated 12/12/2014 FINDINGS: Portable technique limits examination quality. Little overall change is seen in the aeration of lungs since prior study. The heart is normal in size. Right total shoulder arthroplasty. IMPRESSION: Stable chest since 10/27/2020. Conclusions/Impression: RAJWINDER likely due to excessive NSAID therapy. CKD III with proteinuria -No NSAIDs -Reduce IVF 100 ml/hr this evening Hyponatremia -Continue IVF Hypermagnesemia -Monitor level Moderate malnutrition -Encourage nutrition including protein supplementation Anemia in chronic illness Iron deficiency -Consider IV iron supplementation RUL PNA -Continue Rocephin Thank you kindly for the consultation.
[2020-10-28] MEDS ORDERED: CEFTRIAXONE 1 GM/NS 50 ML 1 GM/50 ML BAG IV SCH (21:00)
[2020-10-28] MEDS ORDERED: AZITHROMYCIN IV 500 MG in NA CHLORIDE 0.9% 250 ML IVPB SCH (21:00)
[2020-10-28] MEDS ORDERED: CEFTRIAXONE/SWI 1gm 1 GM/10 ML SYR IV SCH (21:00)
[2020-10-29] MEDS: METHYLPREDNISOLONE 40 MG INJ IV SCH ×2 (00:30→05:38)
[2020-10-29] MEDS: MORPHINE 2 MG/ML SYR IV PRN ×2 (00:40→05:39)
[2020-10-29] MEDS: IPRATROPIUM BROM 0.5MG/2.5ML NEB SCH ×4 (01:20→19:12)
[2020-10-29] MEDS ORDERED: ONDANSETRON 4 MG (ODT) TAB PO PRN (04:47)
[2020-10-29] MEDS ORDERED: ONDANSETRON 4 MG (ODT) TAB ONE (05:09)
[2020-10-29 08:32] LABS: Absolute Lymphocytes (CBC) 0.4 K/uL (0.7-4.9); Basophils % 0.1 % (0-1.3); Lymphocytes % 2.6 % (15.3-44.8); MPV 8.4 fL (7.6-11.3); RBC Red Blood Cell Count 3.62 M/uL (4.33-5.43)
[2020-10-29 08:54] LABS: Albumin 2.9 g/dL (3.4-5.0); Bilirubin Total 0.4 mg/dL (0.2-1.0); Potassium 4.7 mmol/L (3.5-5.1); Protein, Total 7.4 g/dL (6.4-8.2)
--- NOTE | 2020-10-29 09:14 | RAD REPORT ---
EXAM DESCRIPTION: CT - Head Brain Wo Cont - 10/28/2020 6:17 am CLINICAL HISTORY: WEAKNESS. TECHNIQUE: Axial, coronal, and sagittal images through the brain were performed in the absence of in travenous contrast. This exam was performed according to our departmental dose-optimization program w hich includes use of Automated Exposure Control, adjustment of the mA and/or kV according to patient size and/or use of iterative reconstruction technique. COMPARISON: None. FINDINGS: There is diffuse age-appropriate atrophy throughout the brain parenchyma. Mild periventric ular white matter changes are present, and there is mild ex vacuo dilatation of the ventricular syste m. There is no intra-axial or extra-axial bleed. There is no mass or mass effect. The visualized paranasal sinuses and mastoid air cells are patent. No fracture is identified. IMPRESSION: 1. No acute intracranial abnormality identified. 2. Chronic age-related and microvascular ischemic changes. Electronically signed by: Antonia Vickers MD 10/27/2020 10:51 PM CDT Due to temporary technical issues with the PACS/Fluency reporting system, reports are being signed by the in house radiologists without review as a courtesy to insure prompt reporting. The interpreting radiologist is fully responsible for the content of the report.
[2020-10-29] MEDS: APIXABAN 5 MG TABLET PO SCH ×2 (10:18→20:40)
[2020-10-29] MEDS ORDERED: METHYLPREDNISOLONE 125 MG INJ IV SCH (10:46)
--- NOTE | 2020-10-29 10:47 | P.PN ---
Subjective Date of Service: 10/29/20 Chief Complaint: Respiratory failure Patient is more hypoxic he was apparently placed on BiPAP he fell this morning feeling weak otherwise is alert oriented responsive denies any weakness of his extremity Review of Systems General: Weakness Respiratory: Shortness of Breath Physical Examination - Vital Signs Temperature: 98.3 F Blood Pressure: 128/70 Pulse: 95 Respirations: 31 Pulse Ox (%): 95 - Physical Exam General: Alert, In no apparent distress, Oriented x3 Neck: Supple Respiratory: Crackles/rales (Crackles on the right side) Cardiovascular: No edema, Regular rate/rhythm Gastrointestinal: Normal bowel sounds Musculoskeletal: No clubbing, No swelling Neurological: Normal speech, Normal strength at 5/5 x4 extr, Cranial nerves 3-12 intact Assessment & Plan - Problems (Diagnosis) (1) Respiratory failure Current Visit: Yes Status: Acute Plan: Patient admitted with respiratory failure possible pneumonia differential di agnosis includes pulmonary embolism he is not anti coagulated with Eliquis renal function is improving with IV fluids white count elevated blood cultures most likely contaminant the repeat chest x-ray in the morning chemistries reviewed start patient on steroids retest for castillo virus vital signs stable once is renal function is improved poly by tomorrow plan to do a CT pulmonary angiogram renal function is significantly improved seen by Nephrology
--- NOTE | 2020-10-29 11:12 | P.PN ---
Date of Service: 10/29/20 Vital Signs Temp Pulse Resp BP Pulse Ox 98.3 F 95 H 31 H 128/70 95 10/29/20 10:47 10/29/20 10:47 10/29/20 10:47 10/29/20 10:47 10/29/20 10:47 Medications Acetaminophen (Acetaminophen 500 Mg Tab) 500 mg PO Q4HP PRN PRN Reason: Pain scale 2-4 (Mild) Albuterol Sulfate (Albuterol 2.5 Mg/3 Ml Neb Daisy) 2.5 mg NEB Q6HP PRN PRN Reason: SHORTNESS OF BREATH Apixaban (Apixaban 5 Mg Tablet) 10 mg PO BID [facility] Last Admin: 10/29/20 10:18 Dose: 10 mg Documented by: Benzonatate (Benzonatate 100 Mg Cap) 100 mg PO TID PRN PRN Reason: COUGH Ceftriaxone Sodium/Sodium Chloride (Rocephin 1 Gm/10 Ml Swi Ivp) 1 gm in 10 mls @ 600 mls/hr IV Q24H [facility] Last Admin: 10/28/20 22:17 Dose: 10 mls Documented by: Sodium Chloride (Ns 1000 Ml Ivbag) 1,000 mls @ 100 mls/hr IV .Q10H [facility] Last Admin: 10/28/20 22:18 Dose: 1,000 mls Documented by: Ipratropium [place] (Ipratropium Brom 0.5mg/2.5ml) 0.5 mg NEB [id number] [facility] Last Admin: 10/29/20 07:43 Dose: 0.5 mg Documented by: Methylprednisolone Sodium Succinate (Methylprednisolone 125 Mg Inj) 80 mg IV Q12HR [facility] Morphine Sulfate (Morphine 2 Mg/Ml Syr) 2 mg IV Q6H PRN PRN Reason: Pain scale 5-7 (Moderate) Last Admin: 10/29/20 05:39 Dose: 2 mg Documented by: Ondansetron HCl (Ondansetron 4 Mg/2 Ml Vial) 4 mg IV Q6HP PRN PRN Reason: NAUSEA / VOMITING Ondansetron HCl (Ondansetron 4 Mg (Odt) Tab) 4 mg PO Q6H PRN PRN Reason: NAUSEA / VOMITING Last Admin: 10/29/20 04:51 Dose: 4 mg Documented by: Sodium Chloride (Flush Normal Saline 10 Ml) 10 ml IV BID [facility] Last Admin: 10/28/20 22:17 Dose: 10 ml Documented by: Microbiology Results 10/27/20 22:10 Blood - Blood Aerobic Blood Culture - Preliminary 10/27/20 22:10 Blood - Blood Blood Culture Gram Stain - Preliminary 10/27/20 22:10 Blood - Blood Anaerobic Blood Culture - Preliminary No growth in 24 hours. 10/27/20 22:21 Blood - Blood Aerobic Blood Culture - Preliminary 10/27/20 22:21 Blood - Blood Blood Culture Gram Stain - Preliminary 10/27/20 22:21 Blood - Blood Anaerobic Blood Culture - Preliminary No growth in 24 hours. Assessment/ Plan: Nephrology Feeling better today but still with dyspnea. Moved to a different room this morning due to a fall. Good urine output. General: Oriented x3, Cooperative, Mild distress HEENT: Atraumatic Neck: Supple Respiratory: CTA Cardiovascular: Regular rate/rhythm Gastrointestinal: Soft and benign, Non-distended Musculoskeletal: No clubbing, No contractures Integumentary: No cyanosis Neurological: Normal speech Laboratory Data (last 24 hrs) 10/27/20 21:19: PT 13.2 H, INR 1.15 10/27/20 21:19: WBC 9.10, Hgb 12.0 L, Hct 34.2 L, Plt Count 236 10/27/20 21:19: Sodium 128 L, Potassium 5.0, BUN 41 H, Creatinine 1.89 H, Glucose 101, Magnesium 3.9 H*, Total Bilirubin 0.6, AST 42 H, ALT 33, Alkaline Phosphatase 68 Imagings Data: EXAM DESCRIPTION: RAD - Chest Single View - 10/28/2020 1:00 pm CLINICAL HISTORY: Possible pneumonia hypoxemia Chest pain. COMPARISON: Chest Single View dated 10/27/2020; THORAX WO CONTRAST dated 12/12/2014 FINDINGS: Portable technique limits examination quality. Little overall change is seen in the aeration of lungs since prior study. The heart is normal in size. Right total shoulder arthroplasty. IMPRESSION: Stable chest since 10/27/2020. Conclusions/Impression: RAJWINDER likely due to excessive NSAID therapy. CKD III with proteinuria -No NSAIDs -Continue IVF 100 ml/hr Hyponatremia -Continue IVF Hypermagnesemia -Monitor level Moderate malnutrition -Encourage nutrition including protein supplementation Anemia in chronic illness Iron deficiency -Consider IV iron supplementation RUL PNA -Continue Rocephin
[2020-10-29] MEDS ORDERED: ONDANSETRON 4 MG/2 ML VIAL IM ONE (13:19)
--- NOTE | 2020-10-29 13:34 | RAD REPORT ---
EXAM DESCRIPTION: RAD - Chest Single View - 10/29/2020 1:24 pm CLINICAL HISTORY: sob Chest pain. COMPARISON: Chest Single View dated 10/28/2020; Chest Single View dated 10/27/2020 FINDINGS: Portable technique limits examination quality. Bilateral pulmonary opacities are present, slightly progressive on the right since comparative study. The heart is mildly enlarged in size. Right total shoulder arthroplasty.
[2020-10-29] MEDS ORDERED: LIDOCAINE 1% 20 ML MDV IV ONE (13:42)
[2020-10-29 14:21] LABS: Arterial Blood Carboxyhemoglob 1.1 % (0-1.5); Blood Gas Oxyhemoglobin 82.6 % (94-97); Blood O2 Saturation 84.7 % (92-98.5)
[2020-10-29] MEDS ORDERED: LORazepam 2 MG/ML VIAL IM ONE ×2 (14:36→15:02)
[2020-10-29] MEDS ORDERED: HALOPERIDOL LACT 5 MG/ML INJ IM PRN (14:37)
[2020-10-29] MEDS ORDERED: HALOPERIDOL LACT 5 MG/ML INJ ONE (14:55)
[2020-10-29] MEDS ORDERED: LORazepam 2 MG/ML VIAL ONE ×2 (14:57→20:53)
[2020-10-29] MEDS ORDERED: RSI MEDICATION KIT IV ONE (15:17)
[2020-10-29] MEDS ORDERED: MIDAZOLAM HCL 2 MG/2 ML INJ IV ONE (15:23)
[2020-10-29] MEDS ORDERED: CISATRACURIUM 40 MG in NS 100 ML IV PRN (15:34)
[2020-10-29] MEDS ORDERED: propofoL 1,000 MG/100 ML VIAL IV PRN ×2 (15:35→21:22)
[2020-10-29] MEDS ORDERED: FENTANYL CIT IV PRN (15:36)
[2020-10-29] MEDS ORDERED: NA CHLORIDE 0.9% IV PRN (15:36)
[2020-10-29] MEDS ORDERED: MIDAZOLAM HCL 2 MG/2 ML INJ ONE ×2 (15:44→23:28)
--- NOTE | 2020-10-29 15:55 | RAD REPORT ---
EXAM DESCRIPTION: RAD - Chest Single View - 10/29/2020 3:49 pm CLINICAL HISTORY: post intubation Chest pain. COMPARISON: Chest Single View dated 10/29/2020; Chest Single View dated 10/28/2020; Chest Single View da matt 10/27/2020 FINDINGS: Portable technique limits examination quality. Tip of the endotracheal tube is 2 cm above the debbie at the level of inferior margin of the aortic a rch. Enteric tube descends in the stomach. Bilateral pulmonary opacities appears similar to earlier s tudy.Heart size is upper normal.
[2020-10-29 16:22] LABS: Absolute Lymphocytes (CBC) 2.2 K/uL (0.7-4.9); Basophils % 0.2 % (0-1.3); Hematocrit 34.6 % (39.6-49.0); MPV 8.8 fL (7.6-11.3); RBC Red Blood Cell Count 3.72 M/uL (4.33-5.43)
[2020-10-29 16:23] LABS: Bilirubin Total 0.5 mg/dL (0.2-1.0); Potassium 4.9 mmol/L (3.5-5.1); Protein, Total 7.3 g/dL (6.4-8.2)
[2020-10-29] MEDS ORDERED: propofoL 1,000 MG/100 ML VIAL IV ONE (16:36)
[2020-10-29] MEDS ORDERED: FENTANYL/NS PCA 500 MCG/50 ML SYR IV PRN (16:37)
[2020-10-29 17:00] LABS: Magnesium 3.3 mg/dL (1.8-2.4)
[2020-10-29] MEDS: Levofloxacin 750mg IV 750 MG/150 ML BAG IV SCH (17:53)
[2020-10-29 17:55] LABS: Blood Gas Oxyhemoglobin 92.7 % (94-97); Blood O2 Saturation 94.9 % (92-98.5)
[2020-10-29] MEDS ORDERED: Levofloxacin500mg IV 500 MG/100 ML BAG IV SCH (18:00)
[2020-10-29] MEDS ORDERED: VANCOMYCIN 1.25 GM in NA CHLORIDE 0.9% 250 ML IVPB SCH (18:00)
[2020-10-29] MEDS: D5W 1,000 ML with NA BICARB 8.4% 50 MEQ IV SCH ×2 (18:00)
[2020-10-29] MEDS ORDERED: VANCOMYCIN 1.75 GM in NA CHLORIDE 0.9% 500 ML IVPB ONE (18:00)
[2020-10-29] MEDS ORDERED: Levofloxacin 750mg IV 750 MG/150 ML BAG IV ONE (18:11)
[2020-10-29] MEDS ORDERED: D5W 1,000 ML IV ONE (18:11)
[2020-10-29] MEDS ORDERED: SODIUM BICARB 50 MEQ/50ML VIAL ONE (18:11)
[2020-10-29] MEDS ORDERED: NA CHLORIDE 0.9% 250 ML ONE ×2 (18:12→20:53)
[2020-10-29 19:10] LABS: Blood Morphology Comment NOT SEEN (NOT SEEN); Platelet Estimate ADEQ
[2020-10-29] MEDS ORDERED: ALBUTEROL 2.5 MG/3 ML NEB SOL ONE (19:35)
[2020-10-29] MEDS ORDERED: IPRATROPIUM BROM 0.5MG/2.5ML ONE (19:36)
[2020-10-29] MEDS ORDERED: APIXABAN 5 MG TABLET ONE (20:54)
[2020-10-29] MEDS ORDERED: NA CHLORIDE 0.9% 250 ML IV PRN (21:22)
[2020-10-29] MEDS ORDERED: HALOPERIDOL LACT 5 MG/ML INJ IV PRN (21:22)
[2020-10-29] MEDS ORDERED: FENTANYL CITR 100 MCG/2 ML IV PRN (21:22)
[2020-10-29] MEDS ORDERED: NA CHLORIDE 0.9% 500 ML ONE ×2 (21:39→23:27)
[2020-10-29] MEDS ORDERED: VANCOMYCIN 1 GM/VIAL ONE (21:39)
[2020-10-29] MEDS: LORazepam 2 MG/ML VIAL IV PRN (22:28)
[2020-10-29] MEDS ORDERED: HYDROCORTISONE SUC 100 MG INJ IV ONE (22:52)
[2020-10-29] MEDS ORDERED: NA CHLORIDE 0.9% 500 ML IV ONE (22:52)
[2020-10-29] MEDS ORDERED: FENTANYL CITR 100 MCG/2 ML ONE (23:27)
[2020-10-29] MEDS: MIDAZOLAM HCL 2 MG/2 ML INJ IV PRN (23:27)
[2020-10-29] MEDS ORDERED: HYDROCORTISONE SUC 100 MG INJ ONE (23:38)
[2020-10-30] MEDS: METHYLPREDNISOLONE 40 MG INJ IV SCH ×3 (00:10→16:03)
[2020-10-30] MEDS ORDERED: FENTANYL CITR 100 MCG/2 ML IV PRN (00:11)
[2020-10-30] MEDS ORDERED: METHYLPREDNISOLONE 40 MG INJ ONE ×3 (00:22→16:22)
[2020-10-30] MEDS ORDERED: HALOPERIDOL LACT 5 MG/ML INJ ONE (01:01)
[2020-10-30] MEDS ORDERED: LORazepam 2 MG/ML VIAL ONE ×6 (01:06→23:00)
[2020-10-30] MEDS: IPRATROPIUM BROM 0.5MG/2.5ML NEB SCH ×2 (01:10→07:35)
[2020-10-30] MEDS ORDERED: IPRATROPIUM BROM 0.5MG/2.5ML ONE ×4 (01:20→20:48)
[2020-10-30] MEDS ORDERED: FENTANYL/NS PCA 500 MCG/50 ML SYR IV ONE (01:36)
[2020-10-30] MEDS: MIDAZOLAM HCL 2 MG/2 ML INJ IV PRN (03:45)
[2020-10-30] MEDS: D5W 1,000 ML with NA BICARB 8.4% 50 MEQ IV SCH ×2 (03:51)
[2020-10-30] MEDS ORDERED: MIDAZOLAM HCL 2 MG/2 ML INJ ONE (04:00)
[2020-10-30] MEDS ORDERED: SODIUM BICARB 50 MEQ/50ML VIAL ONE (04:00)
[2020-10-30] MEDS ORDERED: D5W 1,000 ML IV ONE (04:05)
[2020-10-30] MEDS: LORazepam 2 MG/ML VIAL IV PRN ×5 (05:04→23:45)
[2020-10-30 06:16] LABS: Arterial Blood Carboxyhemoglob 1.2 % (0-1.5); Blood Gas Oxyhemoglobin 90.9 % (94-97); Blood O2 Saturation 92.9 % (92-98.5)
[2020-10-30 06:31] LABS: Absolute Lymphocytes (CBC) 0.4 K/uL (0.7-4.9); Hematocrit 27.8 % (39.6-49.0); Lymphocytes % 2.9 % (15.3-44.8); MPV 9.2 fL (7.6-11.3); RBC Red Blood Cell Count 3.05 M/uL (4.33-5.43)
[2020-10-30 06:45] LABS: Urine Appearance CLOUDY (Clear); Urine Bilirubin NEGATIVE (Negative); Urine Blood 2+ (Negative); Urine Color YELLOW (Yellow); Urine Glucose NEGATIVE (Negative); Urine Protein TRACE (Negative); Urine Specific Gravity 1.025 (1.005-1.030); Urine Urobilinogen 0.2 mg/dL (0.2-1.0)
[2020-10-30 07:02] LABS: Albumin 2.4 g/dL (3.4-5.0); Bilirubin Total 0.3 mg/dL (0.2-1.0); Magnesium 2.8 mg/dL (1.8-2.4); Protein, Total 6.1 g/dL (6.4-8.2); Uric Acid 7.8 mg/dL (3.5-7.2)
[2020-10-30 07:14] LABS: Urine Bacteria <20 /HPF (NONE SEEN)
[2020-10-30] MEDS: FAMOTIDINE 20 MG/2 ML VIAL IV SCH (07:58)
[2020-10-30] MEDS: APIXABAN 5 MG TABLET PO SCH (07:58)
[2020-10-30] MEDS ORDERED: FAMOTIDINE 20 MG/2 ML VIAL IV ONE (08:14)
[2020-10-30] MEDS ORDERED: APIXABAN 5 MG TABLET ONE (08:14)
--- NOTE | 2020-10-30 08:28 | RAD REPORT ---
[facility] CLINICAL HISTORY: Pneumonia COMPARISON: Oct 29 2020 FINDINGS: [id number] bilateral pulmonary opacities unchanged Heart remains enlarged. Tip of an endotracheal tube lies mid aortic arch. The tip is pointing laterally with an approximately 50 degree angulation with the tracheal wall. Nasogastric tube in place
--- NOTE | 2020-10-30 10:22 | P.PN ---
Date of Service: 10/30/20 Subjective Patient intubated and sedated. Currently doing well. No new changes. Remains hypoxic. CT scan pending renal function and lactic acidosis improved continue with broad-spectrum antibiotic coverage. Cultures pending Review of Systems 10-point ROS is otherwise unremarkable Physical Examination - Vital Signs Reviewed - Physical Exam General: Other (Intubated and sedated) Respiratory: Diminished, Rhonchi/gurgles Cardiovascular: Regular rate/rhythm, Normal S1 S2, Systolic murmur Gastrointestinal: Normal bowel sounds, Soft and benign, Non-distended, No tenderness Musculoskeletal: No tenderness Integumentary: No rashes Neurological: Sensation intact, Cranial nerves 3-12 intact - Studies Medications List Reviewed: Yes Assessment & Plan - Problems (Diagnosis) (1) Pneumonia Current Visit: Yes Status: Acute Qualifiers: Pneumonia type: due to unspecified organism Laterality: right Lung location: upper lobe of lung Qualified Code(s): J18.9 - Pneumonia, unspecified organism (2) Chronic low back pain Current Visit: Yes Status: Acute (3) Hypoxia Current Visit: Yes Status: Acute (4) Respiratory failure Current Visit: Yes Status: Acute (5) COPD (chronic obstructive pulmonary disease) Current Visit: Yes Status: Chronic Qualifiers: COPD type: unspecified COPD Qualified Code(s): J44.9 - Chronic obstructive pulmonary disease, unspecified (6) HTN (hypertension) Current Visit: Yes Status: Chronic Qualifiers: Hypertension type: essential hypertension Qualified Code(s): I10 - Essential (primary) hypertension - Plan 1. Continue with IV antibiotics; continue with IV sedation and mechanical ventilation 2. Awaiting cultures; gram-positive coccus preliminary 3. Repeat chest x-ray with bilateral infiltrates 4. CT scan of the chest in a.m. 5. Appreciate pulmonary consultation 6. Continue with nebs and IV steroids 7. Titrate FiO2; monitor ABG daily 8. Continue with gentle hydration; echocardiogram pending 9. Monitor labs closely 10. GI and DVT prophylaxis Discharge Plan: Home Plan to discharge in: Greater than 2 days - Advance Directives Does patient have a Living Will: No Does patient have a Durable POA for Healthcare: No - Code Status/Comfort Care Code Status Assessed: Yes Code Status: Full Code Critical Care: yes Time Spent Managing PTS Care (In Minutes): 90
--- NOTE | 2020-10-30 10:24 | P.PN ---
Date of Service: 10/29/20 Subjective Date of Service: 10/29/20 Patient was very agitated. This morning patient's nurse found him on the floor. He has become more hypoxic tonight. Patient was placed on BiPAP. Patient did not have IV access and we needed IV. Attempting to place central line however patient was refusing to have it done. His daughter was at bedside and was agreeable. She is his medical prior of banking attorney. Patient pushed my hand away after we had obtained aspiration of the vein on the 1st attempt. Once he push my hand away I was unable to continue the procedure. Patient became more and more agitated. He refused for the BiPAP. He broke it and was not wearing his non-rebreather. Spoke to the daughter and told her the only recourse we would have since he was so hypoxic-oxygen saturations less than 70%-would be to proceed with sedation and intubation. We would also need to get IV access at that time. She was agreeable to the plan of care. Patient was intubated and he is sedated and will continue with IV antibiotic therapy. Central line was obtained as well during the code blue situation. Review of Systems 10-point ROS is otherwise unremarkable Physical Examination - Vital Signs Temperature: 98.7 F Blood Pressure: 109/84 Pulse: 63 Respirations: 18 Pulse Ox (%): 94 - Physical Exam General: Other (Intubated and sedated) Neck: Supple, JVD not distended Respiratory: Diminished, Rhonchi/gurgles Cardiovascular: Regular rate/rhythm, Normal S1 S2, Systolic murmur Gastrointestinal: Normal bowel sounds, Soft and benign, Non-distended, No tenderness Musculoskeletal: No tenderness Integumentary: No rashes Neurological: Sensation intact, Cranial nerves 3-12 intact - Studies Medications List Reviewed: Yes Assessment & Plan - Problems (Diagnosis) (1) Pneumonia Current Visit: Yes Status: Acute Qualifiers: Pneumonia type: due to unspecified organism Laterality: right Lung location: upper lobe of lung Qualified Code(s): J18.9 - Pneumonia, unspecified organism (2) Chronic low back pain Current Visit: Yes Status: Acute (3) Hypoxia Current Visit: Yes Status: Acute (4) Respiratory failure Current Visit: Yes Status: Acute (5) COPD (chronic obstructive pulmonary disease) Current Visit: Yes Status: Chronic Qualifiers: COPD type: unspecified COPD Qualified Code(s): J44.9 - Chronic obstructive pulmonary disease, unspecified (6) HTN (hypertension) Current Visit: Yes Status: Chronic Qualifiers: Hypertension type: essential hypertension Qualified Code(s): I10 - Essential (primary) hypertension - Plan 1. Continue with IV antibiotics; continue with IV sedation and mechanical ventilation 2. Awaiting cultures 3. Repeat chest x-ray 4. Will proceed with CT scan of the chest once patient is clinically stable 5. Appreciate pulmonary consultation 6. Continue with nebs as needed 7. O2 per protocol 8. Continue with gentle hydration 9. Repeat labs including CBC and renal function in a.m. 10. GI and DVT prophylaxis Discharge Plan: Home Plan to discharge in: Greater than 2 days - Advance Directives Does patient have a Living Will: No Does patient have a Durable POA for Healthcare: No - Code Status/Comfort Care Code Status Assessed: Yes Code Status: Full Code Critical Care: Yes Time Spent Managing PTS Care (In Minutes): 90
--- NOTE | 2020-10-30 10:26 | P.PN ---
Date of Service: 10/28/20 Subjective Patient doing well with no new complaints; he states his respiratory status is better Review of Systems 10-point ROS is otherwise unremarkable Physical Examination - Vital Signs Reviewed - Physical Exam General: Awake alert oriented to person place time Respiratory: Diminished, basilar rhonchi Cardiovascular: Regular rate/rhythm, Normal S1 S2, Systolic murmur Gastrointestinal: Normal bowel sounds, Soft and benign, Non-distended, No tenderness Musculoskeletal: No tenderness Integumentary: No rashes Neurological: Sensation intact, Cranial nerves 3-12 intact Assessment & Plan - Problems (Diagnosis) (1) Pneumonia Current Visit: Yes Status: Acute Qualifiers: Pneumonia type: due to unspecified organism Laterality: right Lung location: upper lobe of lung Qualified Code(s): J18.9 - Pneumonia, unspecified organism (2) Chronic low back pain Current Visit: Yes Status: Acute (3) Hypoxia Current Visit: Yes Status: Acute (4) Respiratory failure Current Visit: Yes Status: Acute (5) COPD (chronic obstructive pulmonary disease) Current Visit: Yes Status: Chronic Qualifiers: COPD type: unspecified COPD Qualified Code(s): J44.9 - Chronic obstructive pulmonary disease, unspecified (6) HTN (hypertension) Current Visit: Yes Status: Chronic Qualifiers: Hypertension type: essential hypertension Qualified Code(s): I10 - Essential (primary) hypertension - Plan 1. Continue with IV antibiotics; 2. Awaiting cultures; 3. Repeat chest x-ray 4. Pulmonary consultation 6. Continue with nebs and IV steroids 7. Titrate FiO2; 8. Monitor labs closely 9. GI and DVT prophylaxis
[2020-10-30 10:44] LABS: Blood Morphology Comment NOT SEEN (NOT SEEN); Platelet Estimate ADEQ; White Blood Cell Scan OK (OK)
[2020-10-30] MEDS: MIDAZOLAM HCL 100 MG in NA CHLORIDE 0.9% 80 ML IV PRN (10:51)
--- NOTE | 2020-10-30 10:56 | P.PN ---
Subjective Date of Service: 10/30/20 Chief Complaint: Respiratory failure Patient developed respiratory failure yesterday and had to be intubated he is currently stable on a ventilator drop in blood pressure been using propofol change to IV Versed said chest x-ray shows diffuse bilateral changes we have been tracheal tracheal abnormality renal function improving Review of Systems is unable to be obtained Physical Examination - Vital Signs Temperature: 98.7 F Blood Pressure: 109/84 Pulse: 63 Respirations: 18 Pulse Ox (%): 94 - Physical Exam General: Unresponsive Respiratory: Clear to auscultation bilaterally, Friction rub Cardiovascular: Regular rate/rhythm, Normal S1 S2 Gastrointestinal: Normal bowel sounds, Soft and benign - Studies Medications List Reviewed: Yes Assessment & Plan - Problems (Diagnosis) (1) Respiratory failure Current Visit: Yes Status: Acute Plan: Respiratory failure secondary to presumed pneumonia he has got bilateral airspace changes renal function is improving possible CT angio tomorrow if his renal function has improved increase peep to 10 FiO2 titrate sat to 90 95% sputum culture Dc bicarbonate drip change to normal saline continue with full anticoagulation labs chest x-ray is reviewed patient's trachea is deviated on his chest x-rays this abnormality was not present in 2014 suspicion of a mass blood cultures likely contaminant await sputum culture continue with steroid Qualifiers: Chronicity: acute
[2020-10-30] MEDS: NA CHLORIDE 0.9% 1,000 ML IV SCH ×2 (11:59→20:15)
[2020-10-30] MEDS ORDERED: NA CHLORIDE 0.9% 1,000 ML ONE ×2 (12:08→20:33)
[2020-10-30] MEDS: IPRATROPIUM BROM 0.5MG/2.5ML NEB PRN ×2 (14:16→20:30)
[2020-10-30] MEDS: ENOXAPARIN 80 MG/0.8 ML SQ SCH (20:15)
[2020-10-30] MEDS: ALBUTEROL 2.5 MG/3 ML NEB SOL NEB PRN (20:30)
[2020-10-30] MEDS ORDERED: ENOXAPARIN 80 MG/0.8 ML SQ ONE (20:33)
[2020-10-30] MEDS ORDERED: ALBUTEROL 2.5 MG/3 ML NEB SOL ONE (20:48)
[2020-10-31] MEDS: METHYLPREDNISOLONE 40 MG INJ IV SCH ×3 (01:07→16:20)
[2020-10-31] MEDS ORDERED: METHYLPREDNISOLONE 40 MG INJ ONE ×3 (01:13→16:37)
[2020-10-31] MEDS: ALBUTEROL 2.5 MG/3 ML NEB SOL NEB PRN (01:35)
[2020-10-31] MEDS: IPRATROPIUM BROM 0.5MG/2.5ML NEB PRN ×2 (01:35→08:30)
[2020-10-31] MEDS ORDERED: LORazepam 2 MG/ML VIAL ONE ×4 (04:22→21:44)
[2020-10-31] MEDS: LORazepam 2 MG/ML VIAL IV PRN ×4 (04:30→22:15)
[2020-10-31 04:37] LABS: Absolute Lymphocytes (CBC) 0.4 K/uL (0.7-4.9); Basophils % 0.1 % (0-1.3); Hematocrit 26.8 % (39.6-49.0); MPV 8.4 fL (7.6-11.3)
[2020-10-31] MEDS ORDERED: VANCOMYCIN 1.25 GM in NA CHLORIDE 0.9% 250 ML IVPB SCH (06:00)
[2020-10-31] MEDS: NA CHLORIDE 0.9% 1,000 ML IV SCH ×2 (06:14→10:06)
[2020-10-31 06:18] LABS: Arterial Blood Carboxyhemoglob 1.2 % (0-1.5); Blood O2 Saturation 90.1 % (92-98.5)
[2020-10-31 06:20] LABS: Albumin 2.2 g/dL (3.4-5.0); Bilirubin Total 0.3 mg/dL (0.2-1.0); Ferritin 1170.3 ng/mL (26-388); Magnesium 2.6 mg/dL (1.8-2.4); Phosphorus 2.8 mg/dL (2.5-4.9); Potassium 4.7 mmol/L (3.5-5.1); Protein, Total 5.7 g/dL (6.4-8.2)
[2020-10-31] MEDS ORDERED: NA CHLORIDE 0.9% 1,000 ML ONE ×2 (06:24→22:53)
--- NOTE | 2020-10-31 07:39 | RAD REPORT ---
EXAM DESCRIPTION: RAD - Chest Single View - 10/31/2020 7:06 am CLINICAL HISTORY: pneumonia COMPARISON: Portable October 30 TECHNIQUE: AP portable chest image was obtained 10/31/2020 7:06 am . FINDINGS: Lung volumes are very low. Diffusely prominent interstitial opacification is present. Jenny ent is rotated and flexed which places the head and neck over the upper left chest obscuring the uppe r left hemithorax. Left base shows increased interstitial opacification and patchy alveolar opacities similar to comparison. Right lung field does appear better aerated. Endotracheal tube tip is mid aortic arch which is 2.5 cm above the debbie in the flexed positioning. NG tube extends below the diaphragm off the field of view. No measurable pleural effusion and no pneu mothorax. IMPRESSION: Improved aeration of the right hemithorax compared a prior day imaging. Left base is similar to comparison. Left upper chest is obscured by the patient's head and neck. Jenny ent is rotated and flexed. ET tube is unchanged. Tip is 2.5 cm above the debbie.
[2020-10-31] MEDS: FAMOTIDINE 20 MG/2 ML VIAL IV SCH (08:05)
[2020-10-31] MEDS: ENOXAPARIN 80 MG/0.8 ML SQ SCH (08:05)
[2020-10-31] MEDS ORDERED: FAMOTIDINE 20 MG/2 ML VIAL IV ONE (08:23)
[2020-10-31] MEDS ORDERED: ENOXAPARIN 80 MG/0.8 ML SQ ONE (08:23)
[2020-10-31] MEDS ORDERED: IPRATROPIUM BROM 0.5MG/2.5ML ONE (08:57)
--- NOTE | 2020-10-31 09:49 | ECHO ---
HEIGHT: 5 ft 9 in WEIGHT: 153 lb 4 oz DATE OF STUDY: 10/28/[address]: Hayden Coffey MD 2-DIMENSIONAL: YES M.MODE: YES DOPPLER: YES COLOR FLOW: YES TDS: NO PORTABLE: NO DEFINITY: NO BUBBLE STUDY: NO DIAGNOSIS: RULE OUT PULMONARY EMBOLISM CARDIAC HISTORY: CATHERIZATION: NO SURGERY: NO PROSTHETIC VALVE: NO PACEMAKER: NO MEASUREMENTS (cm) DIASTOLIC (NORMALS) SYSTOLIC (NORMALS) IVSd 1.0 (0.6-1.2) LA Diam 2.6 (1.9-4.0) LVEF 67% LVIDd 4.3 (3.5-5.7) LVIDs 2.7 (2.0-3.5) %FS 37% LVPWd 1.1 (0.6-1.2) Ao Diam 3.3 (2.0-3.7) 2 DIMENSIONAL ASSESSMENT: RIGHT ATRIUM: NORMAL LEFT ATRIUM: NORMAL RIGHT VENTRICLE: NORMAL LEFT VENTRICLE: NORMAL TRICUSPID VALVE: NORMAL MITRAL VALVE: NORMAL PULMONIC VALVE: NORMAL AORTIC VALVE: NORMAL PERICARDIAL EFFUSION: NONE AORTIC ROOT: NORMAL LEFT VENTRICULAR WALL MOTION: NORMAL DOPPLER/COLOR FLOW: MILD TRICUSPID REGURGITATION. RIGHT VENTRICULAR SYSTOLIC PRESSURE 29 mmHg. COMMENTS: NORMAL 2D ECHOCARDIOGRAM WITH DOPPLER. NO PULMONARY HYPERTENSION. NO WALL MOTION ABNORMALITY. NO EFFUSION. TECHNOLOGIST: Hollie BURROWS
[2020-10-31] MEDS ORDERED: HYDRALAZINE HCL 20 MG/ML VIAL IV PRN (10:15)
--- NOTE | 2020-10-31 12:12 | P.PN ---
Subjective Date of Service: 10/31/20 Chief Complaint: Respiratory failure Patient is improving renal function is now normal chest CT angiogram pending Physical Examination - Vital Signs Temperature: 97.9 F Blood Pressure: 167/92 Pulse: 65 Respirations: 18 Pulse Ox (%): 94 - Physical Exam General: Unresponsive Respiratory: Clear to auscultation bilaterally Cardiovascular: No edema, Normal S1 S2 - Studies Medications List Reviewed: Yes Assessment & Plan - Problems (Diagnosis) (1) Respiratory failure Current Visit: Yes Status: Acute Plan: Respiratory failure patient is improving plan to wean off the ventilator white count is now normal Dc vancomycin sputum cultures pending and use rate of IV fluids at 50 cc an hr normal echocardiogram doubt significant pulmonary embolism continue with levofloxacin and steroids blood pressure elevated blood gases reviewed currently on 50% FiO2 Qualifiers: Chronicity: acute
[2020-10-31] MEDS: MORPHINE 2 MG/ML SYR IV PRN ×2 (13:00→21:26)
[2020-10-31] MEDS ORDERED: MORPHINE 2 MG/ML SYR ONE ×2 (13:19→21:44)
--- NOTE | 2020-10-31 13:44 | RAD REPORT ---
EXAM DESCRIPTION: CT - Chest For Pe Angio - 10/31/2020 1:18 pm CLINICAL HISTORY: Rule out pulmonary embolism, chest pain, shortness of breath COMPARISON: THORAX WO CONTRAST dated 12/12/2014; Chest Single View dated 10/31/2020 TECHNIQUE: Dynamically enhanced 3 mm thick images of the chest were obtained during administration o f approximately 150mL Isovue 370 IV contrast. Coronal and oblique MIP reconstruction images were gene rated and reviewed. Exam utilizes a protocol to evaluate the pulmonary arterial tree. All CT scans are performed using dose optimization technique as appropriate and may include automated exposure control or mA/KV adjustment according to patient size. FINDINGS: Exam is degraded by respiratory motion. No pulmonary emboli are identified. The aorta as imaged shows no acute or suspicious finding. No pericardial thickening or effusion. Endotracheal tube is in place. Tip is mid aortic arch level. This is approximately 2.5 cm above the c dayron. NG tube extends into the proximal stomach. Interstitial and alveolar opacities are scattered throughout both lung neff. Posterior gutter atele ctasis present on the right. No dense consolidation seen in either lung field. Patient has minimal bi lateral pleural effusions. No pneumothorax. No pneumomediastinum. No mediastinal or hilar suspicious masses. No chest wall masses or abnormal axillary lymphadenopathy. IMPRESSION: Motion degraded study shows no pulmonary emboli. Minimal bilateral pleural effusions with posterior gutter atelectasis on the right. Patient has inter stitial and alveolar opacities scattered throughout both lung neff. No dense mass or consolidations seen. Endotracheal tube tip is mid aortic arch level 2.5 cm above the debbie.
--- NOTE | 2020-10-31 15:05 | PN ---
Subjective: The patient is seen in Emergency Room HOLD in room 11. The patient is sedated and intub ated, currently on Versed. He is unresponsive to any commands. He has severe bilateral pneumonia, a waiting a CT scan. He is on normal saline currently. He is on PEEP of 10. He is being evaluated an d monitored and followed by Dr. Coffey working to prevent before that has been discontinued. Has b een getting vancomycin. Also on Levaquin and also on vancomycin and Levaquin. The patient's microbi ology results are still pending with no growth on urine. His blood culture so far 24 hours is showin g no growth, but the final culture is still pending. Medications are reviewed. The patient is on Lo venox. He is on hydralazine IV q.8 hours, which has just started for systolic blood pressure greater than 180. He is on Levaquin. He is on lorazepam. He is getting methylprednisolone. He is also on normal saline at 100 mL an hour. He was on propofol, which has been discontinued. Other medication s reviewed as well. Objective: Vital Signs: Currently with blood pressure running in 158 to 170 range with diastolic ru nning in 97 to 111 range. General: The patient is sedated. Unable to get much information from him. Lungs: Clear anteriorly, but decreased breath sounds bilaterally with few crackles at the bases. Abdomen: Soft. Extremities: Reveal no edema. Heart: Sounds are regular. Laboratory Data: Reviewed. The patient's lab showed WBC count significantly better to 9.5, two days ago it was 27,000. Hemoglobin 9.2, hematocrit 26.8, platelet count was 193. Chemistry shows sodium 132, potassium 4.7, chloride 99, bicarb is 26, BUN is 42, creatinine is 1.04, it is come down from 1 .32. Uric acid level is 7.8. Ferritin level 1170.3. AST and ALT at 30 and 81. BNP level at 4822. Prolactin level of 1.2. Assessment And Plan: The patient seems to be septic with pneumonia. Blood cultures so far are still pending. He is sedated on vent. Awaiting a CT scan of his lungs for further evaluation. At this p oint, I agree with cutting back on IV fluids to 50 mL an hour and continue on broad antibiotics with Levaquin and vancomycin. His renal function is improving. His volume status seems to be getting briana ser to euvolemic. May be able to discontinue IV fluids back tomorrow, for now continue on 50 mL an h our. His blood pressure has been on the higher side. Given his possibility of sepsis, we would like to not give him too much blood pressure medications and monitor him closely; however, the blood pres sure is 160/110. He is getting on the higher side. If the systolic blood pressure goes over 180, we will use 5 mg of hydralazine IV carefully and monitor. I have given a p.r.n. order with that parame ter. Continue to monitor with critical care status. /JOSE Voice ID: [id number] Report ID: [id number]
--- NOTE | 2020-10-31 15:54 | P.PN ---
Subjective Date of Service: 10/31/20 Primary Care Provider: unknown Chief Complaint: Respiratory failure Subjective: Doing well Physical Examination - Vital Signs Temperature: 97.9 F Blood Pressure: 158/97 Pulse: 66 Respirations: 17 Pulse Ox (%): 94 - Studies Medications List Reviewed: Yes Assessment & Plan Discharge Plan: Home Plan to discharge in: Greater than 2 days Physician Review Additional Text: Physical Exam: GENERAL: Patient remains intubated and sedated. VITAL SIGNS: Reviewed NECK: Supple. No carotid bruits. No lymphadenopathy or thyromegaly. LUNGS: Overall clear. Patient remains intubated HEART: Regular rate and rythem, no appreciable gallops, rubs, murmurs or extra heart sounds ABDOMEN: Soft. EXTREMITIES: Without any cyanosis, clubbing, rash, lesions or peripheral edema. NEUROLOGIC: Patient remains intubated and sedated SKIN: Normal color, turgor and temperature. No ulcerations or rashes noted. Impression: Dyspnea secondary to acute respiratory failure related to right upper lobe pneumoniabilateral pleural effusions COPD Hypertension PTSD Anemia of chronic disease Plan: Dyspnea secondary to acute respiratory failure related to right upper lobe pneumonia/bilateral pleural effusions: Continue IV Levaquin. Decrease Lovenox to DVT prophylaxis. CT scan shows no pulmonary realism. Patient remains on ventilator. Continue to wean off. Case discussed with pulmonology. Hopefully patient will be able to do spontaneous breathing trials. Case also discussed with nephrology. Decrease IV fluids. Provide medication for blood pressure. Continue to monitor closely. Acute renal injury with chronic renal disease stage III likely medication relatedNSAIDs: Nephrology decrease IV fluids. Continue to monitor renal function. Improved overall. PTSD: We will restart home medication once able to take oral intake. COPD: Continue IV steroids. Continued COPD medication Hypertension: Provide medication. Anemia of chronic disease: We will monitor closely. Code Status: Full Code DVT prophylaxis: Lovenox Advanced Care Planning-30 minutes: We will discuss with family about plan of care. We will update current plan. Time Spent Managing Pts Care (In Minutes): 55
[2020-10-31] MEDS: ENOXAPARIN 40 MG/0.4 ML SQ SCH (16:19)
[2020-10-31] MEDS ORDERED: ENOXAPARIN 40 MG/0.4 ML SQ ONE (16:38)
[2020-10-31] MEDS: Levofloxacin 750mg IV 750 MG/150 ML BAG IV SCH (17:16)
[2020-10-31] MEDS ORDERED: Levofloxacin 750mg IV 750 MG/150 ML BAG IV ONE (17:35)
[2020-10-31] MEDS: MIDAZOLAM HCL 100 MG in NA CHLORIDE 0.9% 80 ML IV PRN (18:42)
[2020-11-01] MEDS: NA CHLORIDE 0.9% 1,000 ML IV SCH (00:30)
[2020-11-01] MEDS: METHYLPREDNISOLONE 40 MG INJ IV SCH ×2 (00:30→09:14)
[2020-11-01] MEDS ORDERED: METHYLPREDNISOLONE 40 MG INJ ONE ×2 (00:37→09:33)
[2020-11-01] MEDS ORDERED: MORPHINE 2 MG/ML SYR ONE (03:29)
[2020-11-01] MEDS ORDERED: LORazepam 2 MG/ML VIAL ONE ×5 (03:29→23:14)
[2020-11-01] MEDS: LORazepam 2 MG/ML VIAL IV PRN ×5 (03:30→23:00)
[2020-11-01] MEDS: MORPHINE 2 MG/ML SYR IV PRN (03:45)
[2020-11-01 04:24] LABS: Absolute Lymphocytes (CBC) 0.4 K/uL (0.7-4.9); Basophils % 0.1 % (0-1.3); Hematocrit 27.9 % (39.6-49.0); Lymphocytes % 3.5 % (15.3-44.8); MPV 8.4 fL (7.6-11.3); RBC Red Blood Cell Count 3.08 M/uL (4.33-5.43)
[2020-11-01 05:40] LABS: Albumin 2.3 g/dL (3.4-5.0); Bilirubin Total 0.4 mg/dL (0.2-1.0); Ferritin 807.1 ng/mL (26-388); Magnesium 2.7 mg/dL (1.8-2.4); Phosphorus 2.5 mg/dL (2.5-4.9); Potassium 4.9 mmol/L (3.5-5.1); Protein, Total 5.8 g/dL (6.4-8.2)
[2020-11-01] MEDS ORDERED: VANCOMYCIN 1.25 GM in NA CHLORIDE 0.9% 250 ML IVPB SCH (06:00)
[2020-11-01] MEDS: ALBUTEROL 2.5 MG/3 ML NEB SOL NEB PRN ×2 (08:00→15:11)
[2020-11-01] MEDS: IPRATROPIUM BROM 0.5MG/2.5ML NEB PRN ×2 (08:00→15:11)
[2020-11-01] MEDS ORDERED: ALBUTEROL 2.5 MG/3 ML NEB SOL ONE ×2 (08:18→15:35)
[2020-11-01] MEDS ORDERED: IPRATROPIUM BROM 0.5MG/2.5ML ONE ×2 (08:18→15:35)
[2020-11-01] MEDS: FAMOTIDINE 20 MG/2 ML VIAL IV SCH (09:14)
--- NOTE | 2020-11-01 09:28 | P.PN ---
Subjective Date of Service: 11/01/20 Primary Care Provider: unknown Chief Complaint: Respiratory failure Subjective: Other (Patient remained stable. Still requiring some medication for agitation.) Physical Examination - Vital Signs Temperature: 98.4 F Blood Pressure: 158/97 Pulse: 56 Respirations: 14 Pulse Ox (%): 95 - Studies Microbiology Data (last 24 hrs): 10/27/20 22:10 Blood - Blood Aerobic Blood Culture - Final 10/27/20 22:10 Blood - Blood Blood Culture Gram Stain - Final 10/27/20 22:10 Blood - Blood Anaerobic Blood Culture - Final No growth in 5 days. 10/27/20 22:21 Blood - Blood Aerobic Blood Culture - Final 10/27/20 22:21 Blood - Blood Blood Culture Gram Stain - Final 10/27/20 22:21 Blood - Blood Anaerobic Blood Culture - Final No growth in 5 days. Medications List Reviewed: Yes Assessment & Plan Discharge Plan: Other (prison facility versus long-term acute care facility) Plan to discharge in: Greater than 2 days Physician Review Additional Text: Physical Exam: GENERAL: Patient remains intubated and sedated. VITAL SIGNS: Reviewed NECK: Supple. No carotid bruits. No lymphadenopathy or thyromegaly. LUNGS: Overall clear. Patient remains intubated HEART: Regular rate and rhythm ABDOMEN: Soft. EXTREMITIES: Without any cyanosis, clubbing, rash, lesions or peripheral edema. NEUROLOGIC: Patient remains intubated and sedated SKIN: Normal color, turgor and temperature. No ulcerations or rashes noted. Impression: Dyspnea secondary to acute respiratory failure related to right upper lobe pneumoniabilateral pleural effusions COPD Hypertension PTSD Anemia of chronic disease Plan: Dyspnea secondary to acute respiratory failure related to right upper lobe pneumonia/bilateral pleural effusions: Patient remains intubated and sedated. Still requiring some medication for sedation and agitation. Continue IV Levaquin. Sputum and blood cultures negative. Decrease Lovenox to DVT prophylaxis, since CT scan shows no pulmonary embolism. Patient remains on ventilator. Continue to wean off. Will discuss further with pulmonology about plan of care to wean off. Case discussed with nephrology yesterday. Nephrology plans to wean off IV fluids. Will need to consider starting Dobbhoff/NG tube feeds. Will discuss with family about progress and plan of care. We will need to consider long-term acute care facility versus skilled placement at discharge. Acute renal injury with chronic renal disease stage III likely medication relatedNSAIDs: Nephrology plans to continue to decrease IV fluids and eventually wean off. Continue to monitor renal function. Improved overall. PTSD: We will need to restart home medication once more alert COPD: Continue IV steroids. Continued COPD medication Hypertension: Continue with blood pressure medication Anemia of chronic disease: We will monitor closely. Code Status: Full Code DVT prophylaxis: Lovenox Advanced Care Planning-30 minutes: Discussed with family about options of care for discharge. Wanted to consider long-term acute care facility placement versus skilled placement depending on his progress. Time Spent Managing Pts Care (In Minutes): 55
[2020-11-01] MEDS ORDERED: FAMOTIDINE 20 MG/2 ML VIAL IV ONE (09:33)
--- NOTE | 2020-11-01 12:33 | P.PN ---
Subjective Date of Service: 11/01/20 Primary Care Provider: unknown Chief Complaint: Respiratory failure Patient's condition is improving he continues to remain agitated there is no evidence of thromboembolism DT scan shows bilateral haziness of far cultures are negative Review of Systems is unable to be obtained Physical Examination - Vital Signs Temperature: 98.4 F Blood Pressure: 158/85 Pulse: 75 Respirations: 18 Pulse Ox (%): 100 - Physical Exam General: Unresponsive Respiratory: Clear to auscultation bilaterally Cardiovascular: No edema, Regular rate/rhythm - Studies Microbiology Data (last 24 hrs): 10/27/20 22:10 Blood - Blood Aerobic Blood Culture - Final 10/27/20 22:10 Blood - Blood Blood Culture Gram Stain - Final 10/27/20 22:10 Blood - Blood Anaerobic Blood Culture - Final No growth in 5 days. 10/27/20 22:21 Blood - Blood Aerobic Blood Culture - Final 10/27/20 22:21 Blood - Blood Blood Culture Gram Stain - Final 10/27/20 22:21 Blood - Blood Anaerobic Blood Culture - Final No growth in 5 days. Medications List Reviewed: Yes Assessment & Plan - Problems (Diagnosis) (1) Respiratory failure Current Visit: Yes Status: Acute Plan: Respiratory failure no evidence of pulmonary embolism or sepsis plan to wean off the ventilator and tube feeds for now labs reviewed mildly anemic normal left ventricular function start Lasix renal function is normal Dc steroids he continues to remain agitated I suspect from is back pain Qualifiers: Chronicity: acute
[2020-11-01] MEDS: HYDROMORPHONE HCL 2 MG/ML inj IV PRN ×2 (14:42→20:23)
[2020-11-01] MEDS ORDERED: HYDROMORPHONE HCL 2 MG/ML inj ONE ×2 (15:00→20:28)
[2020-11-01] MEDS: ENOXAPARIN 40 MG/0.4 ML SQ SCH (15:58)
[2020-11-01] MEDS: FUROSEMIDE 20 MG/ 2ML VIAL IV SCH (15:58)
--- NOTE | 2020-11-01 16:04 | PN ---
Subjective: The patient is seen in room 11 at Emergency Room [facility]. The patient is sedated, but stil l intubated. He is requiring about 45% oxygen. He is on PEEP of 10. His blood pressure is looking stable, has not gone over 180 for him. He has not required hydralazine as the blood pressure has not gone back high, staying stable around 150-160 range for now, and being closely monitored. The patie nt has been a little bit agitated. His O2 sats with mechanical ventilation have been good in about 9 5-100 range. He is afebrile. His lungs on examination are decreased breath sounds at the bases. Ab domen is soft. Extremities reveal a trace edema. Heart sounds are regular and tachy at times around 90-100. His medications are reviewed. The patient is currently on Versed. He is also on a low dos e of Haldol as needed for agitation. He is getting Levaquin. He has gotten vancomycin. He is on me thylprednisolone 40 mg IV q.8 hours. He is on Versed dose currently at about 3 mg IV for sedation. His propofol has been discontinued. He may need some pain medications too and the nurse mentioned to me that the felt checker is considering Dilaudid to be started at a low dose as needed for agitation/ discomfort. The patient's hydralazine is ordered at 5 mg q.8 hours p.r.n. for systolic blood pressur e greater than 180, but has not needed this as his blood pressure has not gone high yet. The [facility] ology shows that the blood cultures are still not completed, but the ones done prior to that or 5 day s have no growth. The sputum culture is still pending. His CT scan done yesterday of the lungs did not show any evidence of pulmonary embolism. Motion-degraded study shows no pulmonary embolism, mini mal bilateral pleural effusions with posterior gutter atelectasis on the right. The patient has inte rstitial and alveolar opacities scattered throughout both lung neff. No dense mass or consolidatio ns seen. Laboratory Data: Reviewed. The patient's lab showed WBC with significant improvement down to 10.8 o n October 29, the post 27 when it peaked. Hemoglobin and hematocrit are reasonably stable compared to y day at 9.2 and 27.9, yesterday was 9.2 and 26.8. Platelet count at 236, which is an improvement compared to yesterday when it was 193. Sodium 137, potassium 4.9, chloride 103, bicarb is 27, BUN i s 36, creatinine is 0.97, calcium and phosphorus at about 7.9 and 2.5. Assessment And Plan: 1.The patient with severe respiratory failure in the setting of pneumonia. He seems to be slightly on the volume overloaded side. At this point, we will go ahead and discontinue his IV fluids, contin ue to monitor him closely. evidence of volume overload with increased edema or difficulty with ventilation, may consider using Lasix IV to assist with that. 2.Pneumonia. The patient is already on broad-spectrum antibiotics, perhaps some sedation and medica tions for pain control would assist with getting his blood pressure better controlled. Some of the b lood pressure elevation may be from the elevated agitation for this condition. 3.Still with quite guarded condition. Volume status as stated above is slightly on the overloaded s shelia/euvolemic in summary. Stop IV fluids. Continue with medications to assist with agitation and pe rhaps add pain control management. The patient's condition seems guarded. If respiration becomes mo re difficult or volume overload becomes a further concern, may need to give some Lasix to get blood p ressure and volume status better controlled. The patient does have some urine output. Hydralazine h as been ordered for blood pressure systolic greater than 180, but the patient has been under that for now. Electrolytes seem reasonable. Kidney function is significantly improved with creatinine stabi lizing with last creatinine at 0.97 and sodium at 137, improvement from 132, and the potassium is sta ble at 4.9. /JOSE Voice ID: [id number] Report ID: [id number]
[2020-11-01] MEDS ORDERED: FUROSEMIDE 20 MG/ 2ML VIAL ONE (16:13)
[2020-11-01] MEDS ORDERED: ENOXAPARIN 40 MG/0.4 ML SQ ONE (16:13)
[2020-11-01] MEDS: MIDAZOLAM HCL 100 MG in NA CHLORIDE 0.9% 80 ML IV PRN (18:16)
[2020-11-02] MEDS: HYDROMORPHONE HCL 2 MG/ML inj IV PRN ×3 (03:13→19:40)
[2020-11-02] MEDS ORDERED: HYDROMORPHONE HCL 2 MG/ML inj ONE ×3 (03:31→19:55)
[2020-11-02 04:16] LABS: Absolute Lymphocytes (CBC) 0.5 K/uL (0.7-4.9); Basophils % 0.1 % (0-1.3); Hematocrit 28.5 % (39.6-49.0); Lymphocytes % 2.7 % (15.3-44.8); MPV 7.8 fL (7.6-11.3); RBC Red Blood Cell Count 3.16 M/uL (4.33-5.43)
[2020-11-02] MEDS: MORPHINE 2 MG/ML SYR IV PRN (05:37)
[2020-11-02] MEDS ORDERED: MORPHINE 2 MG/ML SYR ONE (05:53)
[2020-11-02 06:56] LABS: Albumin 2.6 g/dL (3.4-5.0); Bilirubin Total 0.4 mg/dL (0.2-1.0); Ferritin 605.6 ng/mL (26-388); Magnesium 2.9 mg/dL (1.8-2.4); Phosphorus 4.5 mg/dL (2.5-4.9); Protein, Total 6.1 g/dL (6.4-8.2)
[2020-11-02] MEDS ORDERED: SOD POLYSTYREN SUL 15 GM/60 ML UCUP FT ONE (08:02)
[2020-11-02] MEDS: ALBUTEROL 2.5 MG/3 ML NEB SOL NEB PRN ×2 (08:02→14:02)
[2020-11-02] MEDS: IPRATROPIUM BROM 0.5MG/2.5ML NEB PRN ×2 (08:02→14:02)
--- NOTE | 2020-11-02 08:04 | P.PN ---
Date of Service: 11/02/20 Vital Signs Temp Pulse Resp BP Pulse Ox 97.5 F 78 15 112/66 99 11/02/20 07:00 11/02/20 07:00 11/02/20 07:00 11/02/20 07:00 11/02/20 07:00 Medications Acetaminophen (Acetaminophen 500 Mg Tab) 500 mg PO Q4HP PRN PRN Reason: Pain scale 2-4 (Mild) Albuterol Sulfate (Albuterol 2.5 Mg/3 Ml Neb Daisy) 2.5 mg NEB Q6HP PRN PRN Reason: SHORTNESS OF BREATH Last Admin: 11/01/20 15:11 Dose: 2.5 mg Documented by: Benzonatate (Benzonatate 100 Mg Cap) 100 mg PO TID PRN PRN Reason: COUGH Enoxaparin Sodium (Enoxaparin 40 Mg/0.4 Ml) 40 mg SQ DAILY 5 PM [facility] Last Admin: 11/01/20 15:58 Dose: 40 mg Documented by: Famotidine (Famotidine 20 Mg/2 Ml Vial) 20 mg IV DAILY [facility] Last Admin: 11/01/20 09:14 Dose: 20 mg Documented by: Furosemide (Furosemide 20 Mg/ 2ml Vial) 20 mg IV BIDL [facility] Last Admin: 11/01/20 15:58 Dose: 20 mg Documented by: Haloperidol Lactate (Haloperidol Lact 5 Mg/Ml Inj) 2 mg IV Q4HP PRN PRN Reason: AGITATION Hydralazine HCl (Hydralazine Hcl 20 Mg/Ml Vial) 5 mg IV Q8H PRN PRN Reason: Titrate to SBP (MUST DEFINE) Hydromorphone HCl (Hydromorphone Hcl 2 Mg/Ml Inj) 2 mg IV Q4H PRN PRN Reason: Pain scale 8-10 (Severe) Last Admin: 11/02/20 03:13 Dose: 2 mg Documented by: Levofloxacin/Dextrose (Levaquin 750 Mg/150 Ml Ivpb (Premix)) 750 mg in 150 mls @ 150 mls/hr IV Q48H [facility] Last Admin: 10/31/20 17:16 Dose: 150 mls Documented by: Propofol (Diprivan) 1,000 mg in 100 mls @ 0 mls/hr IV PRN PRN; Protocol PRN Reason: SEDATION Sodium Chloride (Sodium Chloride) 250 mls @ 999 mls/hr IV Q15M PRN PRN Reason: HYPOTENSION Midazolam HCl 100 mg/ Sodium (Chloride) 100 mls @ 0 mls/hr IV PRN PRN; Protocol PRN Reason: SEDATION Last Admin: 11/01/20 18:16 Dose: 100 mls Documented by: Ipratropium [place] (Ipratropium Brom 0.5mg/2.5ml) 0.5 mg NEB [id number] PRN PRN Reason: Respiratory distress Last Admin: 11/01/20 15:11 Dose: 0.5 mg Documented by: Lorazepam (Lorazepam 2 Mg/Ml Vial) 2 mg IV Q2HP PRN PRN Reason: SEDATION Last Admin: 11/01/20 23:00 Dose: 2 mg Documented by: Midazolam HCl (Midazolam Hcl 2 Mg/2 Ml Inj) 2 mg IV Q2HP PRN PRN Reason: SEDATION Last Admin: 10/30/20 03:45 Dose: 2 mg Documented by: Morphine Sulfate (Morphine 2 Mg/Ml Syr) 2 mg IV Q6H PRN PRN Reason: Pain scale 5-7 (Moderate) Last Admin: 11/02/20 05:37 Dose: 2 mg Documented by: Ondansetron HCl (Ondansetron 4 Mg/2 Ml Vial) 4 mg IV Q6HP PRN PRN Reason: NAUSEA / VOMITING Ondansetron HCl (Ondansetron 4 Mg (Odt) Tab) 4 mg PO Q6H PRN PRN Reason: NAUSEA / VOMITING Last Admin: 10/29/20 04:51 Dose: 4 mg Documented by: Sodium Chloride (Flush Normal Saline 10 Ml) 10 ml IV BID NAYA Last Admin: 11/01/20 20:03 Dose: 10 ml Documented by: Microbiology Results 10/27/20 22:10 Blood - Blood Aerobic Blood Culture - Final 10/27/20 22:10 Blood - Blood Blood Culture Gram Stain - Final 10/27/20 22:10 Blood - Blood Anaerobic Blood Culture - Final No growth in 5 days. 10/27/20 22:21 Blood - Blood Aerobic Blood Culture - Final 10/27/20 22:21 Blood - Blood Blood Culture Gram Stain - Final 10/27/20 22:21 Blood - Blood Anaerobic Blood Culture - Final No growth in 5 days. Assessment/ Plan: Nephrology Intubated and sedated in the ICU Limited IH/ ROS due to sedation No acute events overnight Vitals, medications, blood work and imaging reviewed in the chart. General: Sedated HEENT: Atraumatic Neck: Supple Respiratory: Intubated. BL rhonchi Cardiovascular: Regular rate/rhythm Gastrointestinal: Soft and benign, Non-distended Musculoskeletal: No clubbing, No contractures Integumentary: No cyanosis Neurological: No speech Laboratory Data (last 24 hrs) 10/27/20 21:19: PT 13.2 H, INR 1.15 10/27/20 21:19: WBC 9.10, Hgb 12.0 L, Hct 34.2 L, Plt Count 236 10/27/20 21:19: Sodium 128 L, Potassium 5.0, BUN 41 H, Creatinine 1.89 H, Glucose 101, Magnesium 3.9 H*, Total Bilirubin 0.6, AST 42 H, ALT 33, Alkaline Phosphatase 68 Imagings Data: EXAM DESCRIPTION: RAD - Chest Single View - 10/28/2020 1:00 pm CLINICAL HISTORY: Possible pneumonia hypoxemia Chest pain. COMPARISON: Chest Single View dated 10/27/2020; THORAX WO CONTRAST dated 12/12/2014 FINDINGS: Portable technique limits examination quality. Little overall change is seen in the aeration of lungs since prior study. The heart is normal in size. Right total shoulder arthroplasty. IMPRESSION: Stable chest since 10/27/2020. Conclusions/Impression: RAJWINDER likely due to excessive NSAID therapy. CKD III with proteinuria -No NSAIDs Hyponatremia -Continue Lasix Hyperkalemia -Give Kayexalate X1 Hypocalcemia Hypermagnesemia -Monitor level Moderate malnutrition -Maintain tube feeding Anemia in chronic illness Iron deficiency -Consider IV iron supplementation -Transfuse PRBC as needed RUL PNA -Acute hypoxic respiratory failure -Continue Levaquin -Ventilatory support as ordered
[2020-11-02] MEDS ORDERED: IPRATROPIUM BROM 0.5MG/2.5ML ONE ×2 (08:21→14:19)
[2020-11-02] MEDS ORDERED: ALBUTEROL 2.5 MG/3 ML NEB SOL ONE ×2 (08:21→14:19)
[2020-11-02] MEDS ORDERED: FUROSEMIDE 20 MG/ 2ML VIAL ONE ×2 (08:39→16:25)
[2020-11-02] MEDS ORDERED: FAMOTIDINE 20 MG/2 ML VIAL IV ONE (08:39)
[2020-11-02] MEDS: FAMOTIDINE 20 MG/2 ML VIAL IV SCH (08:43)
[2020-11-02] MEDS: FUROSEMIDE 20 MG/ 2ML VIAL IV SCH ×2 (08:43→16:19)
[2020-11-02 08:44] LABS: Arterial Blood Carboxyhemoglob 1.5 % (0-1.5); Blood Gas Oxyhemoglobin 88.3 % (94-97); Blood O2 Saturation 90.7 % (92-98.5)
--- NOTE | 2020-11-02 08:44 | RAD REPORT ---
EXAM DESCRIPTION: RAD - Chest Single View - 11/02/2020 8:21 am CLINICAL HISTORY: intubation Chest pain. COMPARISON: Chest Single View dated 10/31/2020; Chest Single View dated 10/30/2020; Chest Single View d ated 10/29/2020; Chest Single View dated 10/29/2020 FINDINGS: Portable technique limits examination quality. Tip of the endotracheal tube is at the level of the mid aortic arch. Enteric tube is in the distal st omach. Moderate bilateral pulmonary opacities persists, slightly progressive since comparative study. Heart size is mildly enlarged.
[2020-11-02] MEDS ORDERED: SOD POLYSTYREN SUL 15 GM/60 ML UCUP ONE (08:52)
[2020-11-02] MEDS: METHYLPREDNISOLONE 40 MG INJ IV SCH ×2 (09:02→16:20)
[2020-11-02] MEDS ORDERED: METHYLPREDNISOLONE 40 MG INJ ONE ×2 (09:17→16:25)
--- NOTE | 2020-11-02 12:39 | P.PN ---
Subjective Date of Service: 11/02/20 Primary Care Provider: unknown Chief Complaint: Respiratory failure Not doing. well Still hypoxic Review of Systems is unable to be obtained Physical Examination - Vital Signs Temperature: 97.5 F Blood Pressure: 121/76 Pulse: 86 Respirations: 12 Pulse Ox (%): 92 - Physical Exam General: Unresponsive Respiratory: Expiratory wheezes Cardiovascular: No edema, Regular rate/rhythm - Studies Medications List Reviewed: Yes Assessment & Plan - Problems (Diagnosis) (1) Respiratory failure Current Visit: Yes Status: Acute Plan: ARDS. REsume steroids LAbs and ABG reviwed. Pt hypoxic change to PCV Pt has very high tidal volume. Cultures pending. BP stable On tube feeds, Normal ECHO no PE Qualifiers: Chronicity: acute
--- NOTE | 2020-11-02 13:44 | P.PN ---
Subjective Date of Service: 11/02/20 Primary Care Provider: unknown Chief Complaint: Respiratory failure Subjective: Other (He remains intubated and sedated.) Physical Examination - Vital Signs Temperature: 96.9 F Blood Pressure: 116/79 Pulse: 72 Respirations: 12 Pulse Ox (%): 94 - Studies Medications List Reviewed: Yes Assessment & Plan Discharge Plan: Home Plan to discharge in: Greater than 2 days Physician Review Additional Text: Physical Exam: GENERAL: Patient remains intubated and sedated. Currently on 70% FiO2. VITAL SIGNS: Reviewed NECK: Supple. No carotid bruits. No lymphadenopathy or thyromegaly. LUNGS: Clear anteriorly but decreased at the bases. Patient remains intubated HEART: Regular rate and rhythm ABDOMEN: Soft. EXTREMITIES: Without any cyanosis, clubbing, rash, lesions or peripheral edema. NEUROLOGIC: Patient remains intubated and sedated SKIN: Normal color, turgor and temperature. No ulcerations or rashes noted. Impression: Dyspnea secondary to acute respiratory failure related to right upper lobe pneumoniabilateral pleural effusions COPD Hypertension PTSD Anemia of chronic disease Plan: Dyspnea secondary to acute respiratory failure related to right upper lobe pneumonia/bilateral pleural effusions: Patient remains intubated and sedated. Still requiring some medication for sedation and agitation. Continue IV Levaquin. Sputum and blood cultures negative. Lovenox has been adjusted. Chest x-ray still shows some congestion. Pulmonology increased Lasix to twice daily. NG tube feeds to be initiated. Dietary to monitor and adjust. Spoke with family concerning plan of care. Plan will be for him to go home eventually. Acute renal injury with chronic renal disease stage III likely medication relatedNSAIDs: Off IV fluids. Renal function stable. PTSD: We will need to restart home medication once more alert COPD: Continue IV steroids. Continued COPD medication Hypertension: Continue with blood pressure medication Anemia of chronic disease: We will monitor closely. Code Status: Full Code DVT prophylaxis: Lovenox Advanced Care Planning-30 minutes: Discussed with family about options of care for discharge. Family wants him to come back home as he was very independent prior to admission. Time Spent Managing Pts Care (In Minutes): 55
[2020-11-02] MEDS: Levofloxacin 750mg IV 750 MG/150 ML BAG IV SCH (16:20)
[2020-11-02] MEDS: ENOXAPARIN 40 MG/0.4 ML SQ SCH (16:20)
[2020-11-02] MEDS ORDERED: Levofloxacin 750mg IV 750 MG/150 ML BAG IV ONE (16:25)
[2020-11-02] MEDS ORDERED: ENOXAPARIN 40 MG/0.4 ML SQ ONE (16:25)
[2020-11-02] MEDS ORDERED: ALBUTEROL 2.5 MG/3 ML NEB SOL NEB PRN (17:00)
[2020-11-03] MEDS: MIDAZOLAM HCL 100 MG in NA CHLORIDE 0.9% 80 ML IV PRN (00:08)
[2020-11-03] MEDS: METHYLPREDNISOLONE 40 MG INJ IV SCH ×3 (00:19→16:31)
[2020-11-03] MEDS ORDERED: METHYLPREDNISOLONE 40 MG INJ ONE ×3 (00:24→16:47)
[2020-11-03] MEDS: HYDROMORPHONE HCL 2 MG/ML inj IV PRN ×5 (01:18→23:15)
[2020-11-03] MEDS ORDERED: HYDROMORPHONE HCL 2 MG/ML inj ONE ×5 (01:33→23:30)
[2020-11-03 05:11] LABS: Magnesium 2.7 mg/dL (1.8-2.4); Phosphorus 3.3 mg/dL (2.5-4.9)
[2020-11-03] MEDS: FAMOTIDINE 20 MG/2 ML VIAL IV SCH (08:50)
[2020-11-03] MEDS: FUROSEMIDE 20 MG/ 2ML VIAL IV SCH (08:50)
[2020-11-03] MEDS ORDERED: FUROSEMIDE 20 MG/ 2ML VIAL ONE (09:05)
[2020-11-03] MEDS ORDERED: FAMOTIDINE 20 MG/2 ML VIAL IV ONE (09:06)
--- NOTE | 2020-11-03 09:30 | RAD REPORT ---
EXAM DESCRIPTION: RAD - Chest Single View - 11/03/2020 8:55 am CLINICAL HISTORY: Hypoxia, Pneumonia COMPARISON: November 02 TECHNIQUE: AP portable chest image was obtained 11/03/2020 8:55 am . FINDINGS: Endotracheal tube remains in place. Tip is mid aortic arch approximately 4.5 cm above the debbie. NG/ OG tube remains in place. Tip is off the field of view. Patient shows improved inspiratory effort compared to the November 02 study. Interstitial and alveolar opa cities are still present but show improvement. No progressive lung parenchymal process seen. Heart size remains prominent but stable. No change to the vasculature. No measurable pleural effusio n and no pneumothorax. IMPRESSION: Endotracheal tube and NG/ OG tube unchanged in positioning. Improved aeration compared to November 02 imaging. Patient has shown clearing of much of the airspace opac ification.
[2020-11-03] MEDS ORDERED: SOD POLYSTYREN SUL 15 GM/60 ML UCUP PO ONE (10:38)
--- NOTE | 2020-11-03 10:43 | P.PN ---
Date of Service: 11/03/20 Vital Signs Temp Pulse Resp BP Pulse Ox 97.6 F 85 17 126/97 H 97 11/03/20 04:00 11/03/20 08:50 11/03/20 08:49 11/03/20 08:50 11/03/20 08:49 Medications Acetaminophen (Acetaminophen 500 Mg Tab) 500 mg PO Q4HP PRN PRN Reason: Pain scale 2-4 (Mild) Albuterol Sulfate (Albuterol 2.5 Mg/3 Ml Neb Daisy) 2.5 mg NEB [id number] PRN PRN Reason: SHORTNESS OF BREATH Benzonatate (Benzonatate 100 Mg Cap) 100 mg PO TID PRN PRN Reason: COUGH Enoxaparin Sodium (Enoxaparin 40 Mg/0.4 Ml) 40 mg SQ DAILY 5 PM [facility] Last Admin: 11/02/20 16:20 Dose: 40 mg Documented by: Famotidine (Famotidine 20 Mg/2 Ml Vial) 20 mg IV DAILY [facility] Last Admin: 11/03/20 08:50 Dose: 20 mg Documented by: Furosemide (Furosemide 20 Mg/ 2ml Vial) 20 mg IV BIDL [facility] Last Admin: 11/03/20 08:50 Dose: 20 mg Documented by: Haloperidol Lactate (Haloperidol Lact 5 Mg/Ml Inj) 2 mg IV Q4HP PRN PRN Reason: AGITATION Hydralazine HCl (Hydralazine Hcl 20 Mg/Ml Vial) 5 mg IV Q8H PRN PRN Reason: Titrate to SBP (MUST DEFINE) Hydromorphone HCl (Hydromorphone Hcl 2 Mg/Ml Inj) 2 mg IV Q4H PRN PRN Reason: Pain scale 8-10 (Severe) Last Admin: 11/03/20 08:49 Dose: 2 mg Documented by: Levofloxacin/Dextrose (Levaquin 750 Mg/150 Ml Ivpb (Premix)) 750 mg in 150 mls @ 150 mls/hr IV Q48H [facility] Last Admin: 11/02/20 16:20 Dose: 150 mls Documented by: Propofol (Diprivan) 1,000 mg in 100 mls @ 0 mls/hr IV PRN PRN; Protocol PRN Reason: SEDATION Sodium Chloride (Sodium Chloride) 250 mls @ 999 mls/hr IV Q15M PRN PRN Reason: HYPOTENSION Midazolam HCl 100 mg/ Sodium (Chloride) 100 mls @ 0 mls/hr IV PRN PRN; Protocol PRN Reason: SEDATION Last Admin: 11/03/20 00:08 Dose: 100 mls Documented by: Ipratropium [place] (Ipratropium Brom 0.5mg/2.5ml) 0.5 mg NEB [id number] PRN PRN Reason: Respiratory distress Last Admin: 11/02/20 14:02 Dose: 0.5 mg Documented by: Lorazepam (Lorazepam 2 Mg/Ml Vial) 2 mg IV Q2HP PRN PRN Reason: SEDATION Last Admin: 11/01/20 23:00 Dose: 2 mg Documented by: Methylprednisolone Sodium Succinate (Methylprednisolone 40 Mg Inj) 40 mg IV Q8HR [facility] Last Admin: 11/03/20 08:49 Dose: 40 mg Documented by: Midazolam HCl (Midazolam Hcl 2 Mg/2 Ml Inj) 2 mg IV Q2HP PRN PRN Reason: SEDATION Last Admin: 10/30/20 03:45 Dose: 2 mg Documented by: Morphine Sulfate (Morphine 2 Mg/Ml Syr) 2 mg IV Q6H PRN PRN Reason: Pain scale 5-7 (Moderate) Last Admin: 11/02/20 05:37 Dose: 2 mg Documented by: Ondansetron HCl (Ondansetron 4 Mg/2 Ml Vial) 4 mg IV Q6HP PRN PRN Reason: NAUSEA / VOMITING Ondansetron HCl (Ondansetron 4 Mg (Odt) Tab) 4 mg PO Q6H PRN PRN Reason: NAUSEA / VOMITING Last Admin: 10/29/20 04:51 Dose: 4 mg Documented by: Sodium Chloride (Flush Normal Saline 10 Ml) 10 ml IV BID [facility] Last Admin: 11/03/20 08:50 Dose: 10 ml Documented by: Sodium Polystyrene Sulfonate (Sod Polystyren Sul 15 Gm/60 Ml Ucup) 15 gm PO 1X ONE Stop: 11/03/20 10:39 Microbiology Results 10/27/20 22:10 Blood - Blood Aerobic Blood Culture - Final 10/27/20 22:10 Blood - Blood Blood Culture Gram Stain - Final 10/27/20 22:10 Blood - Blood Anaerobic Blood Culture - Final No growth in 5 days. 10/27/20 22:21 Blood - Blood Aerobic Blood Culture - Final 10/27/20 22:21 Blood - Blood Blood Culture Gram Stain - Final 10/27/20 22:21 Blood - Blood Anaerobic Blood Culture - Final No growth in 5 days. Assessment/ Plan: Nephrology Intubated and sedated in the ICU Good urine output. Limited IH/ ROS due to sedation No acute events overnight Vitals, medications, blood work and imaging reviewed in the chart. General: Sedated HEENT: Atraumatic Neck: Supple Respiratory: Intubated. BL rhonchi Cardiovascular: Regular rate/rhythm Gastrointestinal: Soft and benign, Non-distended Musculoskeletal: No clubbing, No contractures Integumentary: No cyanosis Neurological: No speech >30min patient care Laboratory Data (last 24 hrs) 10/27/20 21:19: PT 13.2 H, INR 1.15 10/27/20 21:19: WBC 9.10, Hgb 12.0 L, Hct 34.2 L, Plt Count 236 10/27/20 21:19: Sodium 128 L, Potassium 5.0, BUN 41 H, Creatinine 1.89 H, Glucose 101, Magnesium 3.9 H*, Total Bilirubin 0.6, AST 42 H, ALT 33, Alkaline Phosphatase 68 Imagings Data: EXAM DESCRIPTION: RAD - Chest Single View - 10/28/2020 1:00 pm CLINICAL HISTORY: Possible pneumonia hypoxemia Chest pain. COMPARISON: Chest Single View dated 10/27/2020; THORAX WO CONTRAST dated 12/12/2014 FINDINGS: Portable technique limits examination quality. Little overall change is seen in the aeration of lungs since prior study. The heart is normal in size. Right total shoulder arthroplasty. IMPRESSION: Stable chest since 10/27/2020. Conclusions/Impression: RAJWINDER likely due to excessive NSAID therapy. CKD III with proteinuria -No NSAIDs Hyponatremia -Continue Lasix Hyperkalemia -Give Kayexalate X1 Hypocalcemia Hypermagnesemia -Monitor level Moderate malnutrition -Maintain tube feeding -Increase free water through TF Anemia in chronic illness Iron deficiency -Consider IV iron supplementation -Transfuse PRBC as needed RUL PNA -Acute hypoxic respiratory failure -Continue Levaquin -Ventilatory support as ordered
--- NOTE | 2020-11-03 13:05 | P.PN ---
Subjective Date of Service: 11/03/20 Primary Care Provider: unknown Chief Complaint: Respiratory failure Continues to remain agitated still on high concentrations of oxygen Review of Systems is unable to be obtained Physical Examination - Vital Signs Temperature: 98.7 F Blood Pressure: 145/85 Pulse: 71 Respirations: 20 Pulse Ox (%): 96 - Physical Exam General: Unresponsive Respiratory: Clear to auscultation bilaterally - Studies Medications List Reviewed: Yes Assessment & Plan - Problems (Diagnosis) (1) Respiratory failure Current Visit: Yes Status: Acute Plan: Respiratory failure chest x-ray shows considerable improved vital signs oxygenation stable plan to wean him off the ventilator cultures are negative so for Qualifiers: Chronicity: acute Physician Review Additional Text: Physical Exam: GENERAL: Patient remains intubated and sedated. Currently on 70% FiO2. VITAL SIGNS: Reviewed NECK: Supple. No carotid bruits. No lymphadenopathy or thyromegaly. LUNGS: Clear anteriorly but decreased at the bases. Patient remains intubated HEART: Regular rate and rhythm ABDOMEN: Soft. EXTREMITIES: Without any cyanosis, clubbing, rash, lesions or peripheral edema. NEUROLOGIC: Patient remains intubated and sedated SKIN: Normal color, turgor and temperature. No ulcerations or rashes noted. Impression: Dyspnea secondary to acute respiratory failure related to right upper lobe pneumoniabilateral pleural effusions COPD Hypertension PTSD Anemia of chronic disease Plan: Dyspnea secondary to acute respiratory failure related to right upper lobe pneumonia/bilateral pleural effusions: Patient remains intubated and sedated. Still requiring some medication for sedation and agitation. Continue IV Levaquin. Sputum and blood cultures negative. Lovenox has been adjusted. Chest x-ray still shows some congestion. Pulmonology increased Lasix to twice daily. NG tube feeds to be initiated. Dietary to monitor and adjust. Spoke with family concerning plan of care. Plan will be for him to go home eventually. Acute renal injury with chronic renal disease stage III likely medication relatedNSAIDs: Off IV fluids. Renal function stable. PTSD: We will need to restart home medication once more alert COPD: Continue IV steroids. Continued COPD medication Hypertension: Continue with blood pressure medication Anemia of chronic disease: We will monitor closely. Code Status: Full Code DVT prophylaxis: Lovenox Advanced Care Planning-30 minutes: Discussed with family about options of care for discharge. Family wants him to come back home as he was very independent prior to admission.
[2020-11-03] MEDS ORDERED: SOD POLYSTYREN SUL 15 GM/60 ML UCUP ONE (13:37)
--- NOTE | 2020-11-03 14:30 | P.PN ---
Subjective Date of Service: 11/03/20 Primary Care Provider: unknown Chief Complaint: Respiratory failure Subjective: Other (Patient remains intubated and sedated.) Physical Examination - Vital Signs Temperature: 98.7 F Blood Pressure: 145/85 Pulse: 71 Respirations: 24 Pulse Ox (%): 92 - Studies Medications List Reviewed: Yes Assessment & Plan Discharge Plan: Home Plan to discharge in: Greater than 2 days Physician Review Additional Text: Physical Exam: GENERAL: Patient remains intubated and sedated. Currently on 70% FiO2. VITAL SIGNS: Reviewed NECK: Supple. No carotid bruits. No lymphadenopathy or thyromegaly. LUNGS: Lung sounds clear. patient remains intubated HEART: Regular rate and rhythm ABDOMEN: Soft. EXTREMITIES: Without any cyanosis, clubbing, rash, lesions or peripheral edema. NEUROLOGIC: Patient remains intubated and sedated SKIN: Normal color, turgor and temperature. No ulcerations or rashes noted. Impression: Dyspnea secondary to acute respiratory failure related to right upper lobe pneumoniabilateral pleural effusions COPD Hypertension PTSD Anemia of chronic disease Plan: Dyspnea secondary to acute respiratory failure related to right upper lobe pneumonia/bilateral pleural effusions: Lungs sound improved. Chest x-ray improved. Continue IV Levaquin. Patient appears to have done well with Lasix. Lasix adjusted by nephrology and pulmonology. Blood cultures and sputum culture so far negative. Continue to recheck closely. Pulmonology plans to wean off ventilator. Wean off sedation. Continue with plan of care. Will monitor closely. Tube feeds initiated. Will monitor closely. Anticipate improvement over the next several days. Acute renal injury with chronic renal disease stage III likely medication relatedNSAIDs: Overall stable. Continue with nephrology recommendations. PTSD: We will need to restart home medication once more alert COPD: Continue IV steroids. Continued COPD medication Hypertension: Continue with blood pressure medication Anemia of chronic disease: We will monitor closely. Code Status: Full Code DVT prophylaxis: Lovenox Advanced Care Planning-30 minutes: Discussed with family about options of care for discharge. Family wants him to come back home as he was very independent prior to admission. Time Spent Managing Pts Care (In Minutes): 55
[2020-11-03] MEDS: ENOXAPARIN 40 MG/0.4 ML SQ SCH (16:31)
[2020-11-03] MEDS ORDERED: ENOXAPARIN 40 MG/0.4 ML SQ ONE (16:47)
[2020-11-03] MEDS: VITAL AF 1,000 ML BOT FT SCH (18:00)
[2020-11-04] MEDS: MIDAZOLAM HCL 100 MG in NA CHLORIDE 0.9% 80 ML IV PRN ×2 (00:14→23:00)
[2020-11-04] MEDS: VITAL AF 1,000 ML BOT FT SCH ×4 (00:14→17:15)
[2020-11-04] MEDS: LORazepam 2 MG/ML VIAL IV PRN ×5 (00:22→20:30)
[2020-11-04] MEDS: METHYLPREDNISOLONE 40 MG INJ IV SCH ×3 (00:22→17:15)
[2020-11-04] MEDS ORDERED: LORazepam 2 MG/ML VIAL ONE ×5 (00:38→21:23)
[2020-11-04] MEDS ORDERED: METHYLPREDNISOLONE 40 MG INJ ONE ×3 (00:38→17:05)
[2020-11-04] MEDS ORDERED: HYDROMORPHONE HCL 2 MG/ML inj ONE ×5 (03:45→22:37)
[2020-11-04] MEDS: HYDROMORPHONE HCL 2 MG/ML inj IV PRN ×5 (03:45→22:33)
[2020-11-04 05:52] LABS: Absolute Lymphocytes (CBC) 0.2 K/uL (0.7-4.9); Basophils % 0.3 % (0-1.3); Hematocrit 27.4 % (39.6-49.0); Lymphocytes % 1.2 % (15.3-44.8); MPV 8.7 fL (7.6-11.3); RBC Red Blood Cell Count 3.01 M/uL (4.33-5.43)
[2020-11-04 05:58] LABS: Albumin 2.3 g/dL (3.4-5.0); Bilirubin Total 0.3 mg/dL (0.2-1.0); Protein, Total 5.6 g/dL (6.4-8.2)
[2020-11-04 05:59] LABS: Magnesium 2.9 mg/dL (1.8-2.4); Potassium 4.7 mmol/L (3.5-5.1)
[2020-11-04] MEDS ORDERED: FUROSEMIDE 20 MG/ 2ML VIAL IV ONE (06:09)
[2020-11-04] MEDS ORDERED: FUROSEMIDE 20 MG/ 2ML VIAL ONE (06:55)
[2020-11-04] MEDS: FAMOTIDINE 20 MG/2 ML VIAL IV SCH (07:31)
[2020-11-04] MEDS ORDERED: FAMOTIDINE 20 MG/2 ML VIAL IV ONE (07:38)
[2020-11-04] MEDS ORDERED: ENOXAPARIN 40 MG/0.4 ML SQ ONE (07:38)
--- NOTE | 2020-11-04 08:37 | RAD REPORT ---
EXAM DESCRIPTION: RAD - Chest Single View - 11/04/2020 6:54 am CLINICAL HISTORY: follow up pneumonia/pleural effusion Chest pain. COMPARISON: Chest Single View dated 11/03/2020; Chest Single View dated 11/02/2020; Chest Single View dated 10/31/2020; Chest Single View dated 10/30/2020 FINDINGS: Portable technique limits examination quality. Patient positioning limits quality of the study. Tip of the endotracheal tube is above the debbie at the level of the mid aortic arch. Enteric tube descends into the stomach.[id number] bilateral i nterstitial lung opacities show slight worsening since comparative study. The heart is mildly promine nt in size.
[2020-11-04 09:06] LABS: Blood Morphology Comment NOT SEEN (NOT SEEN); Platelet Estimate ADEQ
--- NOTE | 2020-11-04 11:56 | P.PN ---
Subjective Date of Service: 11/04/20 Primary Care Provider: unknown Chief Complaint: Respiratory failure Patient is not doing well and continues to remain agitated still requiring high concentrations of oxygen Review of Systems is unable to be obtained Physical Examination - Vital Signs Temperature: 98.0 F Blood Pressure: 146/72 Pulse: 77 Respirations: 28 Pulse Ox (%): 88 - Physical Exam General: Mild distress Respiratory: Expiratory wheezes Cardiovascular: Regular rate/rhythm, Normal S1 S2 - Studies Medications List Reviewed: Yes Assessment & Plan - Problems (Diagnosis) (1) Respiratory failure Status: Acute Plan: Respiratory failure patient agitated and a tracheal tube need to be repositioned labs reviewed patient continues to remain hypoxic scheduled nebulizers patient is on steroids wean off Versed said drip and use Ativan and Dilaudid p.r.n. white count is elevated chest x-ray shows some interstitial changes tolerating tube feeds Qualifiers: Chronicity: acute
[2020-11-04] MEDS: ALBUTEROL 2.5 MG/3 ML NEB SOL NEB SCH ×2 (14:10→19:05)
[2020-11-04] MEDS: IPRATROPIUM BROM 0.5MG/2.5ML NEB SCH ×2 (14:10→19:05)
[2020-11-04] MEDS ORDERED: ALBUTEROL 2.5 MG/3 ML NEB SOL ONE ×2 (14:27→19:29)
[2020-11-04] MEDS ORDERED: IPRATROPIUM BROM 0.5MG/2.5ML ONE ×2 (14:27→19:29)
[2020-11-04] MEDS ORDERED: Levofloxacin 750mg IV 750 MG/150 ML BAG IV ONE (17:05)
--- NOTE | 2020-11-04 17:13 | P.PN ---
Subjective Date of Service: 11/04/20 Primary Care Provider: unknown Chief Complaint: Respiratory failure Subjective: No new changes Physical Examination - Vital Signs Temperature: 98.3 F Blood Pressure: 135/78 Pulse: 72 Respirations: 14 Pulse Ox (%): 91 - Studies Medications List Reviewed: Yes Assessment & Plan Discharge Plan: Home Plan to discharge in: Greater than 2 days Physician Review Additional Text: Physical Exam: GENERAL: Patient remains intubated and sedated. Currently on 70% FiO2. VITAL SIGNS: Reviewed NECK: Supple. No carotid bruits. No lymphadenopathy or thyromegaly. LUNGS: Lung sounds clear. patient remains intubated HEART: Regular rate and rhythm ABDOMEN: Soft. EXTREMITIES: Without any cyanosis, clubbing, rash, lesions or peripheral edema. NEUROLOGIC: Patient remains intubated and sedated SKIN: Normal color, turgor and temperature. No ulcerations or rashes noted. Impression: Dyspnea secondary to acute respiratory failure related to right upper lobe pneumoniabilateral pleural effusions COPD Hypertension PTSD Anemia of chronic disease Plan: Dyspnea secondary to acute respiratory failure related to right upper lobe pneumonia/bilateral pleural effusions: Will give Lasix today. Continue IV Levaquin. Continue with pulmonology and nephrology recommendations. Blood cultures and sputum culture so far negative. Continue to recheck closely. Pulmonology plans to wean off ventilator. Wean off sedation. Continue with plan of care. Will monitor closely. Tube feeds initiated. Will monitor closely. Anticipate improvement over the next several days. Acute renal injury with chronic renal disease stage III likely medication relatedNSAIDs: Overall stable. Continue with nephrology recommendations. PTSD: We will need to restart home medication once more alert COPD: Continue IV steroids. Continued COPD medication Hypertension: Continue with blood pressure medication Anemia of chronic disease: We will monitor closely. Code Status: Full Code DVT prophylaxis: Lovenox Advanced Care Planning-30 minutes: Discussed with family about options of care for discharge. Family wants him to come back home as he was very independent prior to admission. Time Spent Managing Pts Care (In Minutes): 55
[2020-11-04] MEDS: ENOXAPARIN 40 MG/0.4 ML SQ SCH (17:15)
[2020-11-04] MEDS: Levofloxacin 750mg IV 750 MG/150 ML BAG IV SCH (17:15)
--- NOTE | 2020-11-04 20:35 | P.PN ---
Date of Service: 11/04/20 Vital Signs Temp Pulse Resp BP Pulse Ox 86 F L 86 25 H 130/67 93 11/04/20 19:00 11/04/20 19:00 11/04/20 19:00 11/04/20 19:00 11/04/20 19:00 Medications Acetaminophen (Acetaminophen 500 Mg Tab) 500 mg PO Q4HP PRN PRN Reason: Pain scale 2-4 (Mild) Albuterol Sulfate (Albuterol 2.5 Mg/3 Ml Neb Daisy) 2.5 mg NEB [id number] [facility] Last Admin: 11/04/20 19:05 Dose: 2.5 mg Documented by: Benzonatate (Benzonatate 100 Mg Cap) 100 mg PO TID PRN PRN Reason: COUGH Enoxaparin Sodium (Enoxaparin 40 Mg/0.4 Ml) 40 mg SQ DAILY 5 PM [facility] Last Admin: 11/04/20 17:15 Dose: 40 mg Documented by: Famotidine (Famotidine 20 Mg/2 Ml Vial) 20 mg IV DAILY [facility] Last Admin: 11/04/20 07:31 Dose: 20 mg Documented by: Haloperidol Lactate (Haloperidol Lact 5 Mg/Ml Inj) 2 mg IV Q4HP PRN PRN Reason: AGITATION Hydralazine HCl (Hydralazine Hcl 20 Mg/Ml Vial) 5 mg IV Q8H PRN PRN Reason: Titrate to SBP (MUST DEFINE) Hydromorphone HCl (Hydromorphone Hcl 2 Mg/Ml Inj) 2 mg IV Q4H PRN PRN Reason: Pain scale 8-10 (Severe) Last Admin: 11/04/20 18:10 Dose: 2 mg Documented by: Levofloxacin/Dextrose (Levaquin 750 Mg/150 Ml Ivpb (Premix)) 750 mg in 150 mls @ 150 mls/hr IV Q48H [facility] Last Admin: 11/04/20 17:15 Dose: 150 mls Documented by: Propofol (Diprivan) 1,000 mg in 100 mls @ 0 mls/hr IV PRN PRN; Protocol PRN Reason: SEDATION Sodium Chloride (Sodium Chloride) 250 mls @ 999 mls/hr IV Q15M PRN PRN Reason: HYPOTENSION Midazolam HCl 100 mg/ Sodium (Chloride) 100 mls @ 0 mls/hr IV PRN PRN; Protocol PRN Reason: SEDATION Last Admin: 11/04/20 00:14 Dose: 100 mls Documented by: Ipratropium [place] (Ipratropium Brom 0.5mg/2.5ml) 0.5 mg NEB [id number] Last Admin: 11/04/20 19:05 Dose: 0.5 mg Documented by: Lorazepam (Lorazepam 2 Mg/Ml Vial) 2 mg IV Q2HP PRN PRN Reason: SEDATION Last Admin: 11/04/20 18:11 Dose: 2 mg Documented by: Methylprednisolone Sodium Succinate (Methylprednisolone 40 Mg Inj) 40 mg IV Q8HR [facility] Last Admin: 11/04/20 17:15 Dose: 40 mg Documented by: Midazolam HCl (Midazolam Hcl 2 Mg/2 Ml Inj) 2 mg IV Q2HP PRN PRN Reason: SEDATION Last Admin: 10/30/20 03:45 Dose: 2 mg Documented by: Morphine Sulfate (Morphine 2 Mg/Ml Syr) 2 mg IV Q6H PRN PRN Reason: Pain scale 5-7 (Moderate) Last Admin: 11/02/20 05:37 Dose: 2 mg Documented by: Nutritional Formula (Vital Af 1,000 Ml Bot) 360 ml FT Q6H [facility] Last Admin: 11/04/20 17:15 Dose: 360 ml Documented by: Ondansetron HCl (Ondansetron 4 Mg/2 Ml Vial) 4 mg IV Q6HP PRN PRN Reason: NAUSEA / VOMITING Ondansetron HCl (Ondansetron 4 Mg (Odt) Tab) 4 mg PO Q6H PRN PRN Reason: NAUSEA / VOMITING Last Admin: 10/29/20 04:51 Dose: 4 mg Documented by: Sodium Chloride (Flush Normal Saline 10 Ml) 10 ml IV BID [facility] Last Admin: 11/04/20 07:31 Dose: 10 ml Documented by: Microbiology Results 10/27/20 22:10 Blood - Blood Aerobic Blood Culture - Final 10/27/20 22:10 Blood - Blood Blood Culture Gram Stain - Final 10/27/20 22:10 Blood - Blood Anaerobic Blood Culture - Final No growth in 5 days. 10/27/20 22:21 Blood - Blood Aerobic Blood Culture - Final 10/27/20 22:21 Blood - Blood Blood Culture Gram Stain - Final 10/27/20 22:21 Blood - Blood Anaerobic Blood Culture - Final No growth in 5 days. Assessment/ Plan: Nephrology Intubated and sedated in the ICU Good urine output. Limited IH/ ROS due to sedation No acute events overnight Vitals, medications, blood work and imaging reviewed in the chart. General: Sedated HEENT: Atraumatic Neck: Supple Respiratory: Intubated. BL rhonchi Cardiovascular: Regular rate/rhythm Gastrointestinal: Soft and benign, Non-distended Musculoskeletal: No clubbing, No contractures Integumentary: No cyanosis Neurological: No speech >30min patient care Laboratory Data (last 24 hrs) 10/27/20 21:19: PT 13.2 H, INR 1.15 10/27/20 21:19: WBC 9.10, Hgb 12.0 L, Hct 34.2 L, Plt Count 236 10/27/20 21:19: Sodium 128 L, Potassium 5.0, BUN 41 H, Creatinine 1.89 H, Glucose 101, Magnesium 3.9 H*, Total Bilirubin 0.6, AST 42 H, ALT 33, Alkaline Phosphatase 68 Imagings Data: EXAM DESCRIPTION: RAD - Chest Single View - 10/28/2020 1:00 pm CLINICAL HISTORY: Possible pneumonia hypoxemia Chest pain. COMPARISON: Chest Single View dated 10/27/2020; THORAX WO CONTRAST dated 11/23 FINDINGS: Portable technique limits examination quality. Little overall change is seen in the aeration of lungs since prior study. The heart is normal in size. Right total shoulder arthroplasty. IMPRESSION: Stable chest since 10/27/2020. Conclusions/Impression: RAJWINDER likely due to excessive NSAID therapy. CKD III with proteinuria -No NSAIDs Hyponatremia -Continue Lasix Hyperkalemia Hypocalcemia Hypermagnesemia -Monitor level Moderate malnutrition -Maintain tube feeding -Increase free water through TF Anemia in chronic illness Iron deficiency -Consider IV iron supplementation -Transfuse PRBC as needed RUL PNA -Acute hypoxic respiratory failure -Continue Levaquin -Ventilatory support as ordered
[2020-11-05] MEDS: METHYLPREDNISOLONE 40 MG INJ IV SCH ×3 (00:03→16:22)
[2020-11-05] MEDS ORDERED: METHYLPREDNISOLONE 40 MG INJ ONE ×3 (00:21→16:32)
[2020-11-05] MEDS: ALBUTEROL 2.5 MG/3 ML NEB SOL NEB SCH ×4 (00:50→19:25)
[2020-11-05] MEDS: IPRATROPIUM BROM 0.5MG/2.5ML NEB SCH ×4 (00:50→19:25)
[2020-11-05] MEDS ORDERED: ALBUTEROL 2.5 MG/3 ML NEB SOL ONE ×4 (01:12→19:40)
[2020-11-05] MEDS ORDERED: IPRATROPIUM BROM 0.5MG/2.5ML ONE ×4 (01:13→19:40)
[2020-11-05] MEDS ORDERED: HYDROMORPHONE HCL 2 MG/ML inj ONE ×5 (03:28→22:26)
[2020-11-05] MEDS: LORazepam 2 MG/ML VIAL IV PRN ×6 (03:33→22:12)
[2020-11-05] MEDS: HYDROMORPHONE HCL 2 MG/ML inj IV PRN ×5 (03:33→22:12)
[2020-11-05] MEDS ORDERED: LORazepam 2 MG/ML VIAL ONE ×6 (03:49→22:25)
[2020-11-05 05:44] LABS: Absolute Lymphocytes (CBC) 0.2 K/uL (0.7-4.9); Basophils % 0.2 % (0-1.3); Hematocrit 27.5 % (39.6-49.0); Lymphocytes % 1.2 % (15.3-44.8); MPV 8.4 fL (7.6-11.3); RBC Red Blood Cell Count 3.01 M/uL (4.33-5.43)
[2020-11-05] MEDS: VITAL AF 1,000 ML BOT FT SCH ×4 (06:00→17:03)
[2020-11-05 06:10] LABS: ALT/SGPT 76 U/L (12-78); AST/SGOT 32 U/L (15-37); Albumin 2.2 g/dL (3.4-5.0); Alkaline Phosphatase 70 U/L (45-117); BUN Blood Urea Nitrogen 51 mg/dL (7-18); Bicarbonate 33 mmol/L (21-32); Bilirubin Total 0.4 mg/dL (0.2-1.0); Glucose Level 142 mg/dL (74-106); Magnesium 2.6 mg/dL (1.8-2.4); Potassium 4.7 mmol/L (3.5-5.1); Protein, Total 5.4 g/dL (6.4-8.2); Sodium Level 142 mmol/L (136-145)
[2020-11-05] MEDS: FAMOTIDINE 20 MG/2 ML VIAL IV SCH (07:59)
[2020-11-05] MEDS ORDERED: FAMOTIDINE 20 MG/2 ML VIAL IV ONE (08:16)
[2020-11-05 10:22] LABS: Blood Morphology Comment NOT SEEN (NOT SEEN); Platelet Estimate ADEQ
--- NOTE | 2020-11-05 11:28 | P.PN ---
Subjective Date of Service: 11/05/20 Primary Care Provider: unknown Chief Complaint: Respiratory failure Patient is not doing well still requiring high concentration of oxygen very agitated Review of Systems is unable to be obtained Physical Examination - Vital Signs Temperature: 97.8 F Blood Pressure: 123/78 Pulse: 77 Respirations: 22 Pulse Ox (%): 97 - Physical Exam General: Unresponsive Respiratory: Expiratory wheezes Cardiovascular: No edema, Normal S1 S2 - Studies Medications List Reviewed: Yes Assessment & Plan - Problems (Diagnosis) (1) Respiratory failure Current Visit: Yes Status: Acute Plan: Respiratory failure not doing well still requiring high concentrations of oxygen plan to titrate him to a sat of 90% agree with IV Lasix he is on schedule bronchodilators including steroids patient is on antibiotics continue with st eroids chest x-ray an arterial blood gases pending consider LTAC Qualifiers: Chronicity: acute Physician Review Additional Text: Physical Exam: GENERAL: Patient remains intubated and sedated. Currently on 70% FiO2. VITAL SIGNS: Reviewed NECK: Supple. No carotid bruits. No lymphadenopathy or thyromegaly. LUNGS: Lung sounds clear. patient remains intubated HEART: Regular rate and rhythm ABDOMEN: Soft. EXTREMITIES: Without any cyanosis, clubbing, rash, lesions or peripheral edema. NEUROLOGIC: Patient remains intubated and sedated SKIN: Normal color, turgor and temperature. No ulcerations or rashes noted. Impression: Dyspnea secondary to acute respiratory failure related to right upper lobe pneumoniabilateral pleural effusions COPD Hypertension PTSD Anemia of chronic disease Plan: Dyspnea secondary to acute respiratory failure related to right upper lobe pneumonia/bilateral pleural effusions: Will give Lasix today. Continue IV Levaquin. Continue with pulmonology and nephrology recommendations. Blood cultures and sputum culture so far negative. Continue to recheck closely. Pulmonology plans to wean off ventilator. Wean off sedation. Continue with plan of care. Will monitor closely. Tube feeds initiated. Will monitor closely. Anticipate improvement over the next several days. Acute renal injury with chronic renal disease stage III likely medication relatedNSAIDs: Overall stable. Continue with nephrology recommendations. PTSD: We will need to restart home medication once more alert COPD: Continue IV steroids. Continued COPD medication Hypertension: Continue with blood pressure medication Anemia of chronic disease: We will monitor closely. Code Status: Full Code DVT prophylaxis: Lovenox Advanced Care Planning-30 minutes: Discussed with family about options of care for discharge. Family wants him to come back home as he was very independent prior to admission.
[2020-11-05] MEDS: MORPHINE 2 MG/ML SYR IV PRN (12:03)
--- NOTE | 2020-11-05 12:14 | P.PN ---
Subjective Date of Service: 11/05/20 Primary Care Provider: unknown Chief Complaint: Respiratory failure Subjective: Other (Patient remained stable. Still requiring sedation. Currently intubated.) Physical Examination - Vital Signs Temperature: 97.8 F Blood Pressure: 123/78 Pulse: 77 Respirations: 22 Pulse Ox (%): 92 - Studies Medications List Reviewed: Yes Assessment & Plan Discharge Plan: LTAC Plan to discharge in: Greater than 2 days Physician Review Additional Text: Physical Exam: GENERAL: Patient remains intubated and sedated. Currently on 85% FiO2. VITAL SIGNS: Reviewed NECK: Supple. No carotid bruits. No lymphadenopathy or thyromegaly. LUNGS: Crackles to the bases. HEART: Regular rate and rhythm ABDOMEN: Soft. EXTREMITIES: Without any cyanosis, clubbing, rash, lesions or peripheral edema. NEUROLOGIC: Patient remains intubated and sedated SKIN: Normal color, turgor and temperature. No ulcerations or rashes noted. Impression: Dyspnea secondary to acute respiratory failure related to right upper lobe pneumoniabilateral pleural effusions suspect underlying acute on chronic diastolic CHF COPD Hypertension PTSD Anemia of chronic disease Plan: Dyspnea secondary to acute respiratory failure related to right upper lobe pneumonia/bilateral pleural effusions suspect underlying acute on chronic diastolic CHF: Continue Lasix 40 mg IV. Case discussed with pulmonology. Pulmonology suspects underlying diastolic CHF as echo showed normal ejection fr action. Continue IV to buttocks. Continue to wean off ventilator. Need to consider long-term acute care facility placement will discuss with family. DVT prophylaxis in place. Continue IV steroids. Anticipate improvement over the next several days. Acute renal injury with chronic renal disease stage III likely medication relatedNSAIDs: Overall stable. Continue with nephrology recommendations. PTSD: We will need to restart home medication once more alert COPD: Continue IV steroids. Continued COPD medication Hypertension: Continue with blood pressure medication Anemia of chronic disease: We will monitor closely. Code Status: Full Code DVT prophylaxis: Lovenox Advanced Care Planning-30 minutes: Tried to reach daughter concerning plan of care. Not able to leave message on her phone. Will recommend long-term acute care facility placement. We will tried to reach her again today. Time Spent Managing Pts Care (In Minutes): 55
[2020-11-05] MEDS ORDERED: MORPHINE 2 MG/ML SYR ONE (12:22)
[2020-11-05 12:29] LABS: Arterial Blood Carboxyhemoglob 1.4 % (0-1.5); Blood Gas Oxyhemoglobin 84.5 % (94-97); Blood O2 Saturation 86.5 % (92-98.5)
[2020-11-05] MEDS: FUROSEMIDE 40 MG/4 ML VIAL IV SCH (14:48)
[2020-11-05] MEDS ORDERED: FUROSEMIDE 40 MG/4 ML VIAL ONE (15:07)
[2020-11-05] MEDS: ENOXAPARIN 40 MG/0.4 ML SQ SCH (16:22)
[2020-11-05] MEDS ORDERED: ENOXAPARIN 40 MG/0.4 ML SQ ONE (16:32)
--- NOTE | 2020-11-05 17:10 | RAD REPORT ---
EXAM DESCRIPTION: Jerod Single View11/05/2020 5:03 pm CLINICAL HISTORY: Chest pain COMPARISON: November 04, 2020 FINDINGS: Tip of an endotracheal tube at the level of the mid aortic arch. Nasogastric tube within s tomach Minimal worsening in right upper lobe opacities. No change additional bilateral pulmonary opacities. Heart is mildly enlarged IMPRESSION: Minimal worsening in right upper lobe opacities. No change in additional bilateral pulmo nary opacities. This could represent pneumonia or pulmonary edema.
[2020-11-05] MEDS: MIDAZOLAM HCL 100 MG in NA CHLORIDE 0.9% 80 ML IV PRN (22:35)
[2020-11-06] MEDS ORDERED: METHYLPREDNISOLONE 40 MG INJ ONE ×3 (00:04→16:21)
[2020-11-06] MEDS: VITAL AF 1,000 ML BOT FT SCH ×4 (00:19→17:13)
[2020-11-06] MEDS: METHYLPREDNISOLONE 40 MG INJ IV SCH ×3 (00:19→16:03)
[2020-11-06] MEDS: IPRATROPIUM BROM 0.5MG/2.5ML NEB SCH ×4 (01:00→20:05)
[2020-11-06] MEDS: ALBUTEROL 2.5 MG/3 ML NEB SOL NEB SCH ×4 (01:00→20:05)
[2020-11-06] MEDS: LORazepam 2 MG/ML VIAL IV PRN ×6 (01:10→20:36)
[2020-11-06] MEDS ORDERED: ALBUTEROL 2.5 MG/3 ML NEB SOL ONE ×4 (01:12→20:22)
[2020-11-06] MEDS ORDERED: IPRATROPIUM BROM 0.5MG/2.5ML ONE ×4 (01:12→20:22)
[2020-11-06] MEDS ORDERED: LORazepam 2 MG/ML VIAL ONE ×6 (01:26→20:50)
[2020-11-06] MEDS ORDERED: HYDROMORPHONE HCL 2 MG/ML inj ONE ×6 (02:26→22:16)
[2020-11-06 05:47] LABS: Absolute Lymphocytes (CBC) 0.2 K/uL (0.7-4.9); Basophils % 0.3 % (0-1.3); Hematocrit 28.3 % (39.6-49.0); Lymphocytes % 1.1 % (15.3-44.8); MPV 8.6 fL (7.6-11.3); RBC Red Blood Cell Count 3.11 M/uL (4.33-5.43)
[2020-11-06] MEDS: HYDROMORPHONE HCL 2 MG/ML inj IV PRN ×5 (06:03→22:15)
[2020-11-06 06:04] LABS: BUN Blood Urea Nitrogen 48 mg/dL (7-18); Bicarbonate 30 mmol/L (21-32); Glucose Level 164 mg/dL (74-106); Magnesium 2.6 mg/dL (1.8-2.4); Potassium 4.5 mmol/L (3.5-5.1); Sodium Level 144 mmol/L (136-145)
[2020-11-06] MEDS: FUROSEMIDE 40 MG/4 ML VIAL IV SCH (07:53)
[2020-11-06] MEDS: FAMOTIDINE 20 MG/2 ML VIAL IV SCH (07:53)
--- NOTE | 2020-11-06 07:54 | RAD REPORT ---
EXAM DESCRIPTION: RAD - Chest Single View - 11/06/2020 6:34 am CLINICAL HISTORY: follow up Pneumonia and possible CHF COMPARISON: November 05November 04 TECHNIQUE: AP portable chest image was obtained 11/06/2020 6:34 am . FINDINGS: Lung volumes remain low. Interstitial and scattered alveolar opacities are present in the lung neff similar to slightly worse than November 05. Endotracheal tube tip remains mid aortic arch level which is 3.5 cm above the debbie. NG/OG tube is b elow the diaphragm, off the field of view. Heart size is normal. Mediastinum is accentuated by rotati on. No pneumothorax or enlarging pleural effusion. IMPRESSION: Stable positioning of the ET tube 3.5 cm above the debbie. Interstitial and alveolar opacities are present similar to slightly worse than November 05.
[2020-11-06] MEDS ORDERED: FUROSEMIDE 40 MG/4 ML VIAL ONE (08:02)
[2020-11-06] MEDS ORDERED: FAMOTIDINE 20 MG/2 ML VIAL IV ONE (08:02)
[2020-11-06] MEDS ORDERED: FUROSEMIDE 40 MG/4 ML VIAL IV SCH (09:00)
[2020-11-06] MEDS: LACTOBACILLUS/ACIDOPHILUS TAB PO SCH ×3 (09:20→20:22)
[2020-11-06] MEDS ORDERED: LACTOBACILLUS/ACIDOPHILUS TAB ONE ×2 (09:39→14:11)
--- NOTE | 2020-11-06 10:14 | P.PN ---
Subjective Date of Service: 11/06/20 Primary Care Provider: unknown Chief Complaint: Respiratory failure Subjective: Other (Remains intubated and sedated) Physical Examination - Vital Signs Temperature: 98.1 F Blood Pressure: 109/76 Pulse: 80 Respirations: 20 Pulse Ox (%): 97 - Studies Medications List Reviewed: Yes Assessment & Plan Discharge Plan: LTAC (with the possibility of SNF/[facility] near [place] where daughter lives.) Plan to discharge in: Greater than 2 days Physician Review Additional Text: Physical Exam: GENERAL: Patient remains intubated and sedated. Currently on 60% FiO2. VITAL SIGNS: Reviewed NECK: Supple. No carotid bruits. No lymphadenopathy or thyromegaly. LUNGS: Crackles to the bases. HEART: Regular rate and rhythm ABDOMEN: Soft. EXTREMITIES: Without any cyanosis, clubbing, rash, lesions or peripheral edema. NEUROLOGIC: Patient remains intubated and sedated SKIN: Normal color, turgor and temperature. No ulcerations or rashes noted. Impression: Dyspnea secondary to acute respiratory failure related to right upper lobe pneumonia likely aspirationbilateral pleural effusions suspect underlying acute on chronic diastolic CHF COPD Hypertension PTSD Anemia of chronic disease Chronic pain with neuropathy Diarrhea likely from Kayexalate Plan: Dyspnea secondary to acute respiratory failure related to right upper lobe pneumonia likely aspiration/bilateral pleural effusions suspect underlying acute on chronic diastolic CHF: Patient remains intubated and sedated. Patient requiring less FiO2 on Lasix. Respiratory to continue to wean off ventilator and sedation medication. Continue Lasix 40 mg. Case discussed with pulmonology yesterday. Likely underlying CHF. Continue IV antibiotic therapy for pneumonia. Continue COPD medication. Patient with diarrhea. This is likely from Kayexalate given the other day. Rectal tube in place. We will monitor this closely. We will add lactobacillus. Continue DVT prophylaxis. Continue other medication. NG tube feeds in place. Discussed plan of care with daughter who makes most of the decisions. Patient lives at home primarily by himself. does a lot of traveling. Patient is a . Daughter agrees with LTAC placement if needed. Other consideration would be if the patient is able to be weaned off ventilator and more appropriate than consider discussing with patient and daughter about moving to [facility] where she lives. This would mean the possibility of a skilled placement or long-term care. She would like to further discuss this in detail over the next 48 hours depending on what his needs will be. I will turn the service over to the hospitalist team tomorrow. I will go over the plan of care with him. Acute renal injury with chronic renal disease stage III likely medication relatedNSAIDs: Overall improved. Continue nephrology recommendations. PTSD: Restart Prozac, mirtazapine and Elavil. Hold mirtazapine and Elavil if with increased sedation. COPD: Continue IV steroids and COPD medication Hypertension: Hold metoprolol. Continue with IV medication as needed. Anemia of chronic disease: We will monitor closely. Chronic pain with neuropathy: Patient takes Lyrica. Continue to hold medication. Consider restarting once the patient is more alert. Diarrhea likely from Kayexalate: Continue to monitor closely. Rectal system in place. Will start lactobacillus. Code Status: Full Code DVT prophylaxis: Lovenox Advanced Care Planning-30 minutes: Discussed at length with Millicent at [phone]. Daughter understands current situation. Daughter reports patient primarily lives at home. does a lot of traveling and not able to take care of the patient. His demands have been increased. Daughter agrees with the possibility of LTAC placement if required. Other option would be if he was able to be weaned off to consider skilled placement then possible long-term care. Daughter would like for the patient to come near [facility] where she lives so that she can better take care of him. We will talk to social media project manager to help address. Time Spent Managing Pts Care (In Minutes): 55
[2020-11-06] MEDS: FLUOXETINE 20 MG CAP PO SCH ×2 (14:07→20:23)
[2020-11-06] MEDS: ENOXAPARIN 40 MG/0.4 ML SQ SCH (16:02)
[2020-11-06] MEDS ORDERED: ENOXAPARIN 40 MG/0.4 ML SQ ONE (16:21)
[2020-11-06] MEDS: Levofloxacin 750mg IV 750 MG/150 ML BAG IV SCH (17:13)
[2020-11-06] MEDS ORDERED: Levofloxacin 750mg IV 750 MG/150 ML BAG IV ONE (17:31)
[2020-11-06] MEDS: AMITRIPTYLINE 50 MG TAB PO SCH (20:22)
[2020-11-06] MEDS: MIDAZOLAM HCL 100 MG in NA CHLORIDE 0.9% 80 ML IV PRN (21:37)
[2020-11-07] MEDS: VITAL AF 1,000 ML BOT FT SCH ×4 (00:13→16:59)
[2020-11-07] MEDS: METHYLPREDNISOLONE 40 MG INJ IV SCH ×3 (00:23→16:33)
[2020-11-07] MEDS ORDERED: METHYLPREDNISOLONE 40 MG INJ ONE ×3 (00:38→16:49)
[2020-11-07] MEDS: IPRATROPIUM BROM 0.5MG/2.5ML NEB SCH ×4 (02:00→19:26)
[2020-11-07] MEDS: ALBUTEROL 2.5 MG/3 ML NEB SOL NEB SCH ×4 (02:00→19:26)
[2020-11-07 05:25] LABS: Absolute Lymphocytes (CBC) 0.3 K/uL (0.7-4.9); Basophils % 0.2 % (0-1.3); Hematocrit 28.3 % (39.6-49.0); Lymphocytes % 1.7 % (15.3-44.8); MPV 8.5 fL (7.6-11.3); RBC Red Blood Cell Count 3.09 M/uL (4.33-5.43)
[2020-11-07] MEDS: HYDROMORPHONE HCL 2 MG/ML inj IV PRN ×2 (05:26→19:00)
[2020-11-07] MEDS ORDERED: HYDROMORPHONE HCL 2 MG/ML inj ONE ×2 (05:42→19:10)
[2020-11-07 05:46] LABS: BUN Blood Urea Nitrogen 48 mg/dL (7-18); Bicarbonate 32 mmol/L (21-32); Glucose Level 160 mg/dL (74-106); Magnesium 2.5 mg/dL (1.8-2.4); Potassium 4.8 mmol/L (3.5-5.1); Sodium Level 142 mmol/L (136-145)
[2020-11-07] MEDS ORDERED: ALBUTEROL 2.5 MG/3 ML NEB SOL ONE ×3 (08:04→19:46)
[2020-11-07] MEDS ORDERED: IPRATROPIUM BROM 0.5MG/2.5ML ONE ×3 (08:04→19:46)
[2020-11-07] MEDS: LACTOBACILLUS/ACIDOPHILUS TAB PO SCH ×3 (08:13→20:45)
[2020-11-07] MEDS: CYANOCOBALAMIN 1,000 MCG TAB PO SCH (08:13)
[2020-11-07] MEDS: FUROSEMIDE 40 MG/4 ML VIAL IV SCH (08:13)
[2020-11-07] MEDS: FAMOTIDINE 20 MG/2 ML VIAL IV SCH (08:13)
[2020-11-07] MEDS: FLUOXETINE 20 MG CAP PO SCH ×3 (08:13→20:45)
[2020-11-07] MEDS: MIRTAZAPINE 15 MG TAB PO SCH (08:14)
[2020-11-07] MEDS ORDERED: FAMOTIDINE 20 MG/2 ML VIAL IV ONE (08:29)
[2020-11-07] MEDS ORDERED: FUROSEMIDE 40 MG/4 ML VIAL ONE (08:29)
--- NOTE | 2020-11-07 08:31 | P.PN ---
Subjective Date of Service: 11/07/20 Primary Care Provider: unknown Chief Complaint: Respiratory failure Patient is still on a Versed said drip agitated hemodynamically stable Review of Systems is unable to be obtained Physical Examination - Vital Signs Temperature: 98.2 F Blood Pressure: 96/56 Pulse: 80 Respirations: 14 Pulse Ox (%): 98 - Physical Exam General: Unresponsive Respiratory: Clear to auscultation bilaterally, Diminished Cardiovascular: Regular rate/rhythm - Studies Medications List Reviewed: Yes Assessment & Plan - Problems (Diagnosis) (1) Respiratory failure Current Visit: Yes Status: Acute Plan: Respiratory failure plan to wean off the ventilator white count is declining slight diarrhea renal function improving probably plan to wean and extubate today may be difficult to wean she deteriorates may have to reintubate him continue with steroids antibiotics for now cultures negative hemodynamically stable Qualifiers: Chronicity: acute
[2020-11-07] MEDS ORDERED: HOME MED 1 EA UNK (Amitriptyline Hcl [Amitriptyline Hcl] 100 MG Tablet) PO SCH (09:00)
[2020-11-07] MEDS ORDERED: HOME MED 1 EA UNK (Amitriptyline Hcl [Amitriptyline Hcl] 100 MG) PO SCH (09:00)
--- NOTE | 2020-11-07 12:01 | RAD REPORT ---
EXAM DESCRIPTION: Jerod Single View11/06/2020 11:32 pm CLINICAL HISTORY: 70 years, Male, PICC placement COMPARISON: 11/06/2020. FINDINGS: Single view of the chest was obtained portable. Prior films were compared. There has been interval placement of a right upper extremity PICC line tip of the catheter within the cavoatrial ronal ction. Endotracheal tube and nasogastric tube remains in good position. The lung volume is decreased. The heart is not enlarged. The thoracic aorta is unremarkable. Diffuse bilateral increased interstitial o pacities are again demonstrated. There is questionable small right pleural effusion. The rest of th e soft tissue and bony structures demonstrate to be unremarkable. IMPRESSION: Interval placement of right upper extremity PICC line in good position. Persistent diffuse bilateral increased interstitial opacities. Possible small right pleural effusion. Electronically signed by: Tyler Clancy MD 11/06/2020 11:44 PM CDT Due to temporary technical issues with the PACS/Fluency reporting system, reports are being signed by the in house radiologist without review as a courtesy to ensure prompt reporting. The interpreting r adiologist is fully responsible for the content of the report.
[2020-11-07] MEDS: LORazepam 2 MG/ML VIAL IV PRN ×2 (12:56→19:00)
[2020-11-07] MEDS ORDERED: LORazepam 2 MG/ML VIAL ONE ×2 (13:14→19:09)
[2020-11-07] MEDS: ENOXAPARIN 40 MG/0.4 ML SQ SCH (16:32)
[2020-11-07] MEDS ORDERED: ENOXAPARIN 40 MG/0.4 ML SQ ONE (16:49)
[2020-11-07] MEDS ORDERED: ACETAMINOPHEN 500 MG TAB ONE (18:02)
[2020-11-07] MEDS ORDERED: LOPERAMIDE HCL 1 MG/5 ML UCUP FT SCH (19:00)
[2020-11-07] MEDS ORDERED: LOPERAMIDE HCL 2 MG CAPSULE ONE (20:30)
[2020-11-07] MEDS: LOPERAMIDE HCL 2 MG CAPSULE FT SCH (20:43)
[2020-11-07] MEDS: AMITRIPTYLINE 50 MG TAB PO SCH (20:44)
[2020-11-07] MEDS ORDERED: FLUOXETINE 20 MG CAP ONE (20:56)
[2020-11-07] MEDS ORDERED: LACTOBACILLUS/ACIDOPHILUS TAB ONE (20:56)
[2020-11-07] MEDS: MIDAZOLAM HCL 100 MG in NA CHLORIDE 0.9% 80 ML IV PRN (21:12)
--- NOTE | 2020-11-07 21:40 | P.PN ---
Date of Service: 11/07/20 Vital Signs Temp Pulse Resp BP Pulse Ox 98.7 F 93 H 14 129/78 95 11/07/20 16:00 11/07/20 18:00 11/07/20 19:30 11/07/20 18:00 11/07/20 19:30 Medications Acetaminophen (Acetaminophen 500 Mg Tab) 500 mg PO Q4HP PRN PRN Reason: Pain scale 2-4 (Mild) Last Admin: 11/07/20 17:43 Dose: 500 mg Documented by: Albuterol Sulfate (Albuterol 2.5 Mg/3 Ml Neb Daisy) 2.5 mg NEB [id number] [facility] Last Admin: 11/07/20 19:26 Dose: 2.5 mg Documented by: Amitriptyline HCl (Amitriptyline 50 Mg Tab) 100 mg PO BEDTIME [facility] Last Admin: 11/07/20 20:44 Dose: 100 mg Documented by: Benzonatate (Benzonatate 100 Mg Cap) 100 mg PO TID PRN PRN Reason: COUGH Cholestyramine Resin (Cholestyramine/Asp 4 Gm/Pkt) 4 gm PO BIDWM [facility] Stop: 11/10/20 17:01 Cyanocobalamin (Cyanocobalamin 1,000 Mcg Tab) 1,000 mcg PO DAILY [facility] Last Admin: 11/07/20 08:13 Dose: 1,000 mcg Documented by: Enoxaparin Sodium (Enoxaparin 40 Mg/0.4 Ml) 40 mg SQ DAILY 5 PM [facility] Last Admin: 11/07/20 16:32 Dose: 40 mg Documented by: Famotidine (Famotidine 20 Mg/2 Ml Vial) 20 mg IV DAILY [facility] Last Admin: 11/07/20 08:13 Dose: 20 mg Documented by: Fluoxetine HCl (Fluoxetine 20 Mg Cap) 20 mg PO TID [facility] Last Admin: 11/07/20 20:45 Dose: 20 mg Documented by: Furosemide (Furosemide 40 Mg/4 Ml Vial) 40 mg IV DAILY [facility] Last Admin: 11/07/20 08:13 Dose: 40 mg Documented by: Haloperidol Lactate (Haloperidol Lact 5 Mg/Ml Inj) 2 mg IV Q4HP PRN PRN Reason: AGITATION Hydralazine HCl (Hydralazine Hcl 20 Mg/Ml Vial) 5 mg IV Q8H PRN PRN Reason: Titrate to SBP (MUST DEFINE) Hydromorphone HCl (Hydromorphone Hcl 2 Mg/Ml Inj) 2 mg IV Q4H PRN PRN Reason: Pain scale 8-10 (Severe) Last Admin: 11/07/20 19:00 Dose: 2 mg Documented by: Levofloxacin/Dextrose (Levaquin 750 Mg/150 Ml Ivpb (Premix)) 750 mg in 150 mls @ 150 mls/hr IV Q48H [facility] Last Admin: 11/06/20 17:13 Dose: 150 mls Documented by: Propofol (Diprivan) 1,000 mg in 100 mls @ 0 mls/hr IV PRN PRN; Protocol PRN Reason: SEDATION Sodium Chloride (Sodium Chloride) 250 mls @ 999 mls/hr IV Q15M PRN PRN Reason: HYPOTENSION Midazolam HCl 100 mg/ Sodium (Chloride) 100 mls @ 0 mls/hr IV PRN PRN; Protocol PRN Reason: SEDATION Last Admin: 11/07/20 21:12 Dose: 100 mls Documented by: Ipratropium [place] (Ipratropium Brom 0.5mg/2.5ml) 0.5 mg NEB [id number] Last Admin: 11/07/20 19:26 Dose: 0.5 mg Documented by: Lactobacillus Acidoph/Bulgaricus (Lactobacillus/Acidophilus Tab) 1 tab PO TID [facility] Last Admin: 11/07/20 20:45 Dose: 1 tab Documented by: Loperamide HCl (Loperamide Hcl 2 Mg Capsule) 2 mg FT Q8H [facility] Stop: 11/09/20 11:01 Last Admin: 11/07/20 20:43 Dose: 2 mg Documented by: Lorazepam (Lorazepam 2 Mg/Ml Vial) 2 mg IV Q2HP PRN PRN Reason: SEDATION Last Admin: 11/07/20 19:00 Dose: 2 mg Documented by: Methylprednisolone Sodium Succinate (Methylprednisolone 40 Mg Inj) 40 mg IV Q8HR [facility] Last Admin: 11/07/20 16:33 Dose: 40 mg Documented by: Midazolam HCl (Midazolam Hcl 2 Mg/2 Ml Inj) 2 mg IV Q2HP PRN PRN Reason: SEDATION Last Admin: 10/30/20 03:45 Dose: 2 mg Documented by: Mirtazapine (Mirtazapine 15 Mg Tab) 15 mg PO DAILY [facility] Last Admin: 11/07/20 08:14 Dose: Not Given Documented by: Nutritional Formula (Vital Af 1,000 Ml Bot) 360 ml FT Q6H [facility] Last Admin: 11/07/20 16:59 Dose: 360 ml Documented by: Ondansetron HCl (Ondansetron 4 Mg/2 Ml Vial) 4 mg IV Q6HP PRN PRN Reason: NAUSEA / VOMITING Ondansetron HCl (Ondansetron 4 Mg (Odt) Tab) 4 mg PO Q6H PRN PRN Reason: NAUSEA / VOMITING Last Admin: 10/29/20 04:51 Dose: 4 mg Documented by: Sodium Chloride (Flush Normal Saline 10 Ml) 10 ml IV BID [facility] Last Admin: 11/07/20 20:45 Dose: 10 ml Documented by: Microbiology Results 10/27/20 22:10 Blood - Blood Aerobic Blood Culture - Final 10/27/20 22:10 Blood - Blood Blood Culture Gram Stain - Final 10/27/20 22:10 Blood - Blood Anaerobic Blood Culture - Final No growth in 5 days. 10/27/20 22:21 Blood - Blood Aerobic Blood Culture - Final 10/27/20 22:21 Blood - Blood Blood Culture Gram Stain - Final 10/27/20 22:21 Blood - Blood Anaerobic Blood Culture - Final No growth in 5 days. Assessment/ Plan: Nephrology Intubated and sedated in the ICU Good urine output. Diarrhea. Limited IH/ ROS due to sedation No acute events overnight Vitals, medications, blood work and imaging reviewed in the chart. General: Sedated HEENT: Atraumatic Neck: Supple Respiratory: Intubated. BL rhonchi Cardiovascular: Regular rate/rhythm Gastrointestinal: Soft and benign, Non-distended Musculoskeletal: No clubbing, No contractures Integumentary: No cyanosis Neurological: No speech >30min patient care Laboratory Data (last 24 hrs) 10/27/20 21:19: PT 13.2 H, INR 1.15 10/27/20 21:19: WBC 9.10, Hgb 12.0 L, Hct 34.2 L, Plt Count 236 10/27/20 21:19: Sodium 128 L, Potassium 5.0, BUN 41 H, Creatinine 1.89 H, Glucose 101, Magnesium 3.9 H*, Total Bilirubin 0.6, AST 42 H, ALT 33, Alkaline Phosphatase 68 Imagings Data: EXAM DESCRIPTION: RAD - Chest Single View - 10/28/2020 1:00 pm CLINICAL HISTORY: Possible pneumonia hypoxemia Chest pain. COMPARISON: Chest Single View dated 10/27/2020; THORAX WO CONTRAST dated 12/12/2014 FINDINGS: Portable technique limits examination quality. Little overall change is seen in the aeration of lungs since prior study. The heart is normal in size. Right total shoulder arthroplasty. IMPRESSION: Stable chest since 10/27/2020. Conclusions/Impression: RAJWINDER likely due to excessive NSAID therapy. CKD III with proteinuria -No NSAIDs Hyponatremia -Continue Lasix Hyperkalemia Hypocalcemia Hypermagnesemia -Monitor level Moderate malnutrition -Maintain tube feeding -Increase free water through TF Anemia in chronic illness Iron deficiency -Consider IV iron supplementation -Transfuse PRBC as needed RUL PNA -Acute hypoxic respiratory failure -Continue Levaquin -Ventilatory support as ordered
[2020-11-08] MEDS ORDERED: METHYLPREDNISOLONE 40 MG INJ ONE ×3 (00:45→20:57)
[2020-11-08] MEDS: ALBUTEROL 2.5 MG/3 ML NEB SOL NEB SCH ×4 (01:33→20:20)
[2020-11-08] MEDS: IPRATROPIUM BROM 0.5MG/2.5ML NEB SCH ×4 (01:33→20:20)
[2020-11-08] MEDS: METHYLPREDNISOLONE 40 MG INJ IV SCH ×3 (01:38→20:46)
[2020-11-08] MEDS ORDERED: IPRATROPIUM BROM 0.5MG/2.5ML ONE ×4 (01:58→20:49)
[2020-11-08] MEDS ORDERED: ALBUTEROL 2.5 MG/3 ML NEB SOL ONE ×4 (01:58→20:48)
[2020-11-08] MEDS: LOPERAMIDE HCL 2 MG CAPSULE FT SCH ×2 (04:57→11:00)
[2020-11-08 05:02] LABS: RBC Red Blood Cell Count 2.98 M/uL (4.33-5.43)
[2020-11-08 05:03] LABS: Absolute Lymphocytes (CBC) 0.2 K/uL (0.7-4.9); Basophils % 0.1 % (0-1.3); Lymphocytes % 1.6 % (15.3-44.8); MPV 8.5 fL (7.6-11.3)
[2020-11-08] MEDS ORDERED: LOPERAMIDE HCL 2 MG CAPSULE ONE (05:06)
[2020-11-08 05:25] LABS: BUN Blood Urea Nitrogen 48 mg/dL (7-18); Bicarbonate 33 mmol/L (21-32); Glucose Level 203 mg/dL (74-106); Magnesium 2.4 mg/dL (1.8-2.4); Potassium 4.4 mmol/L (3.5-5.1); Sodium Level 140 mmol/L (136-145)
[2020-11-08] MEDS: VITAL AF 1,000 ML BOT FT SCH ×4 (07:22→17:29)
[2020-11-08] MEDS: CHOLESTYRAMINE/ASP 4 GM/PKT PO SCH ×2 (07:24→16:24)
[2020-11-08] MEDS: MIRTAZAPINE 15 MG TAB PO SCH (09:00)
[2020-11-08] MEDS: FUROSEMIDE 40 MG/4 ML VIAL IV SCH (09:14)
[2020-11-08] MEDS: LACTOBACILLUS/ACIDOPHILUS TAB PO SCH ×3 (09:14→20:45)
[2020-11-08] MEDS: FAMOTIDINE 20 MG/2 ML VIAL IV SCH (09:14)
[2020-11-08] MEDS: CYANOCOBALAMIN 1,000 MCG TAB PO SCH (09:14)
[2020-11-08] MEDS ORDERED: LACTOBACILLUS/ACIDOPHILUS TAB ONE (09:30)
[2020-11-08] MEDS ORDERED: FAMOTIDINE 20 MG/2 ML VIAL IV ONE (09:31)
[2020-11-08] MEDS ORDERED: FUROSEMIDE 40 MG/4 ML VIAL ONE (09:31)
[2020-11-08] MEDS: FLUOXETINE 20 MG CAP PO SCH ×3 (10:39→20:45)
[2020-11-08] MEDS ORDERED: FUROSEMIDE 40 MG/4 ML VIAL IV ONE (10:48)
[2020-11-08] MEDS: LORazepam 2 MG/ML VIAL IV PRN (11:01)
[2020-11-08] MEDS ORDERED: LORazepam 2 MG/ML VIAL ONE (11:20)
--- NOTE | 2020-11-08 12:10 | PN ---
Date of Progress Note: 11/08/2020 Subjective: The patient is not alert. He is sedated. He is intubated. He is on spontaneous with t he setting on his vent with 40% oxygen. Objective: Lungs: Decreased at the bases. Abdomen: Soft. Extremities: Reveal no edema. Heart: Sounds are regular. Laboratory Data: Reveals a WBC count coming down from 19 at [facility] , November 04 it was 20,000, curren tly on November 08 is 15,000. Hemoglobin reasonably stable yesterday 9.2, today 8.8. Hematocrit 27, pl atelet counts are at 249. Chemistry shows sodium 140, potassium 4.4, chloride 105, bicarb is 33, BUN is 48, creatinine is 0.66. Phosphorus level 7.8, magnesium 2.4. Assessment And Plan: The patient with acute respiratory failure with acute kidney injury, electrolyt e abnormalities, hypertension. At this point, blood pressure is improved. His volume status seems t o be close to euvolemic, but still slightly overloaded. Agree with Lasix 40 mg IV daily. We will go ahead and give him another dose of Lasix right now as the plan is to see if he can be weaned off his ventilation. His lung sounds are still decreased at the bases. He does not have any wheezing on ex am. At this point, he is perhaps slightly volume overloaded. His sodium has been corrected with a l evel of 140 today. His potassium is stable at 4.4. In summary, acute kidney injury improving. The patient should avoid NSAID therapy going forward. He has a question of some chronic kidney disease w ith proteinuria. We will need further evaluation once acute issues are resolved. His hyponatremia h as improved. Hyperkalemia has improved. At this point, we would give him 1 more dose of Lasix IV an d continue Lasix IV daily to keep his volume status close to euvolemic to better assist with getting him off the ventilator. His main problem with respiratory distress seems to be n ot volume, but pneumonia. /JOSE Voice ID: [id number] Report ID: [id number]
--- NOTE | 2020-11-08 12:14 | P.PN ---
Subjective Date of Service: 11/08/20 Primary Care Provider: unknown Chief Complaint: Respiratory failure Unable to wean the patient from the ventilator patient is agitated as failed breathing trials Review of Systems is unable to be obtained Physical Examination - Vital Signs Temperature: 97.6 F Blood Pressure: 122/71 Pulse: 90 Respirations: 28 Pulse Ox (%): 98 - Physical Exam General: Moderate distress Respiratory: Clear to auscultation bilaterally, Diminished Cardiovascular: No edema, Normal S1 S2 - Studies Medications List Reviewed: Yes Assessment & Plan - Problems (Diagnosis) (1) Respiratory failure Current Visit: Yes Status: Acute Plan: Respiratory failure unable to wean patient off the ventilator cut ARDS will plan to console to ENT for tracheostomy creatinine is improving white count is also declining diarrhea subsided cultures negative the Dc antibiotic reduce dose of Solu-Medrol Dc levofloxacin patient's diarrhea persists consider testing him for Clostridium difficile FiO2 of 40% Qualifiers: Chronicity: acute
[2020-11-08] MEDS ORDERED: LOPERAMIDE HCL FT PRN ×2 (15:03→16:00)
[2020-11-08] MEDS: LOPERAMIDE HCL FT SCH (16:24)
[2020-11-08] MEDS: ENOXAPARIN 40 MG/0.4 ML SQ SCH (16:26)
[2020-11-08] MEDS ORDERED: ENOXAPARIN 40 MG/0.4 ML SQ ONE (16:45)
[2020-11-08] MEDS: AMITRIPTYLINE 50 MG TAB PO SCH (20:45)
[2020-11-09] MEDS: LOPERAMIDE HCL FT SCH ×3 (01:00→16:24)
[2020-11-09] MEDS: IPRATROPIUM BROM 0.5MG/2.5ML NEB SCH ×4 (01:50→19:05)
[2020-11-09] MEDS: ALBUTEROL 2.5 MG/3 ML NEB SOL NEB SCH ×4 (01:50→19:05)
[2020-11-09] MEDS: VITAL AF 1,000 ML BOT FT SCH ×4 (03:53→16:24)
[2020-11-09] MEDS: CHOLESTYRAMINE/ASP 4 GM/PKT PO SCH ×2 (08:00→16:23)
[2020-11-09] MEDS ORDERED: IPRATROPIUM BROM 0.5MG/2.5ML ONE ×3 (08:07→19:24)
[2020-11-09] MEDS ORDERED: ALBUTEROL 2.5 MG/3 ML NEB SOL ONE ×3 (08:07→19:24)
[2020-11-09] MEDS: METHYLPREDNISOLONE 40 MG INJ IV SCH ×2 (08:48→20:43)
[2020-11-09] MEDS: FUROSEMIDE 40 MG/4 ML VIAL IV SCH (08:48)
[2020-11-09] MEDS: FAMOTIDINE 20 MG/2 ML VIAL IV SCH (08:48)
[2020-11-09] MEDS: LACTOBACILLUS/ACIDOPHILUS TAB PO SCH ×3 (08:48→20:43)
[2020-11-09] MEDS: MIRTAZAPINE 15 MG TAB PO SCH (08:49)
[2020-11-09] MEDS: FLUOXETINE 20 MG CAP PO SCH ×3 (08:49→20:44)
[2020-11-09] MEDS: CYANOCOBALAMIN 1,000 MCG TAB PO SCH (08:49)
[2020-11-09] MEDS: LORazepam 2 MG/ML VIAL IV PRN (09:01)
[2020-11-09] MEDS ORDERED: FAMOTIDINE 20 MG/2 ML VIAL IV ONE (09:04)
[2020-11-09] MEDS ORDERED: FUROSEMIDE 40 MG/4 ML VIAL ONE (09:04)
[2020-11-09] MEDS ORDERED: METHYLPREDNISOLONE 40 MG INJ ONE ×2 (09:04→20:37)
[2020-11-09] MEDS ORDERED: LORazepam 2 MG/ML VIAL ONE (09:19)
--- NOTE | 2020-11-09 10:00 | RAD REPORT ---
EXAM DESCRIPTION: RAD - Chest Single View - 11/09/2020 9:35 am CLINICAL HISTORY: hypoxia COMPARISON: November 06 TECHNIQUE: AP portable chest image was obtained 11/09/2020 9:35 am . FINDINGS: Endotracheal tube is no longer identifiable. Enteric tube has been removed as well. Extensive interstitial and alveolar opacification present in the lung neff. This appears worse than the comparison. Some of the apparent progression is due to lower lung volumes. Heart and vasculature are normal. No measurable pleural effusion and no pneumothorax. IMPRESSION: Progressive interstitial and alveolar opacification from November 06 exam only partially due to artifact from lower lung volume.
[2020-11-09] MEDS: HYDROMORPHONE HCL 2 MG/ML inj IV PRN (10:03)
[2020-11-09 10:10] LABS: Arterial Blood Carboxyhemoglob 1.6 % (0-1.5); Blood Gas Oxyhemoglobin 79.6 % (94-97); Blood O2 Saturation 81.7 % (92-98.5)
--- NOTE | 2020-11-09 10:14 | P.PN ---
Date of Service: 11/07/20 Subjective Patient remains intubated and sedated. Current clinical status is stable. Patient is starting to wake up slowly. Hopefully, he will start following some commands. Patient undergoing spontaneous breathing trial Review of Systems Unable to obtain Physical Examination - Vital Signs Reviewed - Physical Exam General: Intubated and sedated; patient not really following commands Respiratory: Diminished, basilar rhonchi Cardiovascular: Regular rate/rhythm, Normal S1 S2, Systolic murmur Gastrointestinal: Normal bowel sounds, Soft and benign, Non-distended, No tenderness Musculoskeletal: No tenderness Integumentary: No rashes Neurological: Sensation intact, Cranial nerves 3-12 intact Assessment & Plan - Problems (Diagnosis) (1) Pneumonia Current Visit: Yes Status: Acute Qualifiers: Pneumonia type: due to unspecified organism Laterality: right Lung location: upper lobe of lung Qualified Code(s): J18.9 - Pneumonia, unspecified organism (2) Chronic low back pain Current Visit: Yes Status: Acute (3) Hypoxia Current Visit: Yes Status: Acute (4) Respiratory failure Current Visit: Yes Status: Acute (5) COPD (chronic obstructive pulmonary disease) Current Visit: Yes Status: Chronic Qualifiers: COPD type: unspecified COPD Qualified Code(s): J44.9 - Chronic obstructive pulmonary disease, unspecified (6) HTN (hypertension) Current Visit: Yes Status: Chronic Qualifiers: Hypertension type: essential hypertension Qualified Code(s): I10 - Essential (primary) hypertension - Plan Continue with plan of care as mentioned below 1. Continue with IV antibiotics; 2. Cultures have been negative 3. Repeat chest x-ray 4. Pulmonary consultation appreciated; patient is on spontaneous breathing trial and we are try to wean him off the ventilator 6. Continue with nebs and IV steroids 7. Titrate FiO2; 8. Monitor labs closely 9. GI and DVT prophylaxis
[2020-11-09] MEDS ORDERED: HYDROMORPHONE HCL 2 MG/ML inj ONE (10:16)
[2020-11-09 10:17] LABS: Arterial Blood Carboxyhemoglob 1.5 % (0-1.5); Blood Gas Oxyhemoglobin 91.9 % (94-97); Blood O2 Saturation 94.4 % (92-98.5)
--- NOTE | 2020-11-09 10:17 | P.PN ---
Date of Service: 11/08/20 Subjective Patient denies any new complaints. Patient's clinical symptoms are improving. Patient tolerating spontaneous breathing trial and plan to extubate later today if patient continues to do well. If patient does not get extubated then we will need to consult ENT for possible tracheostomy placement. Review of Systems Unable to obtain Physical Examination - Vital Signs Reviewed - Physical Exam General: Intubated and sedated; patient waking up and moving around Respiratory: Diminished, basilar rhonchi Cardiovascular: Regular rate/rhythm, Normal S1 S2, Systolic murmur Gastrointestinal: Normal bowel sounds, Soft and benign, Non-distended, No tenderness Musculoskeletal: No clubbing or cyanosis no edema Integumentary: No rashes Neurological: Sensation intact, Cranial nerves 3-12 intact Assessment & Plan - Problems (Diagnosis) (1) Pneumonia Current Visit: Yes Status: Acute Qualifiers: Pneumonia type: due to unspecified organism Laterality: right Lung location: upper lobe of lung Qualified Code(s): J18.9 - Pneumonia, unspecified organism (2) Chronic low back pain Current Visit: Yes Status: Acute (3) Hypoxia Current Visit: Yes Status: Acute (4) Respiratory failure Current Visit: Yes Status: Acute (5) COPD (chronic obstructive pulmonary disease) Current Visit: Yes Status: Chronic Qualifiers: COPD type: unspecified COPD Qualified Code(s): J44.9 - Chronic obstructive pulmonary disease, unspecified (6) HTN (hypertension) Current Visit: Yes Status: Chronic Qualifiers: Hypertension type: essential hypertension Qualified Code(s): I10 - Essential (primary) hypertension - Plan Continue with plan of care as mentioned below 1. Continue with IV antibiotics; 2. Cultures have been negative 3. Repeat chest x-ray 4. Pulmonary consultation appreciated; patient is on spontaneous breathing trial again today and we are trying to wean him off the ventilator; if patient is extubated then will start physical therapy. If patient unable to be extubated we will need ENT consultation. Possible tracheostomy 6. Continue with nebs and IV steroids 7. Titrate FiO2; 8. Monitor labs closely 9. GI and DVT prophylaxis
--- NOTE | 2020-11-09 10:41 | P.PN ---
Date of Service: 11/09/20 Subjective Patient was extubated; still very hypoxic. Requiring BiPAP support. Continue with nebs and steroids; physical therapy and speech therapy evaluation Review of Systems Unable to obtain Physical Examination - Vital Signs Reviewed - Physical Exam General: Patient following commands; generalized weakness Respiratory: Diminished, basilar rhonchi Cardiovascular: Regular rate/rhythm, Normal S1 S2, Systolic murmur Gastrointestinal: Normal bowel sounds, Soft and benign, Non-distended, No tenderness Musculoskeletal: No clubbing or cyanosis no edema Integumentary: No rashes Neurological: Sensation intact, Cranial nerves 3-12 intact; generalized weakness strength is 4-/5 Assessment & Plan - Problems (Diagnosis) (1) Pneumonia Current Visit: Yes Status: Acute Pneumonia type: due to unspecified organism Laterality: right Lung location: upper lobe of lung Qualified Code(s): J18.9 - Pneumonia, unspecified organism (2) Chronic low back pain Current Visit: Yes Status: Acute (3) Hypoxia Current Visit: Yes Status: Acute (4) Respiratory failure Current Visit: Yes Status: Acute (5) COPD (chronic obstructive pulmonary disease) Current Visit: Yes Status: Chronic COPD type: unspecified COPD Qualified Code(s): J44.9 - Chronic obstructive pulmonary disease, unspecified (6) HTN (hypertension) Current Visit: Yes Status: Chronic Hypertension type: essential hypertension Qualified Code(s): I10 - Essential (primary) hypertension - Plan Continue with plan of care as mentioned below 1. Discuss with Pulmonary regarding IV antibiotic therapy 2. Incentive spirometer to bedside 3. Repeat chest x-ray 4. Patient was extubated and is clinically doing well. Chest x-ray with bilateral infiltrates. Continue to monitor closely 6. Continue with nebs and IV steroids 7. Titrate FiO2; 8. Monitor labs closely 9. Physical therapy and speech therapy consultation pending 10. GI and DVT prophylaxis
[2020-11-09] MEDS: ENOXAPARIN 40 MG/0.4 ML SQ SCH (16:23)
[2020-11-09] MEDS ORDERED: ENOXAPARIN 40 MG/0.4 ML SQ ONE (16:42)
[2020-11-09] MEDS ORDERED: HYDROMORPHONE HCL 1 MG/ML INJ IV PRN (18:45)
[2020-11-09] MEDS: AMITRIPTYLINE 50 MG TAB PO SCH (20:43)
--- NOTE | 2020-11-09 20:47 | P.PN ---
Date of Service: 11/09/20 Vital Signs Temp Pulse Resp BP Pulse Ox 98.4 F 76 17 119/77 96 11/09/20 16:00 11/09/20 18:00 11/09/20 18:00 11/09/20 18:00 11/09/20 18:00 Medications Acetaminophen (Acetaminophen 500 Mg Tab) 500 mg PO Q4HP PRN PRN Reason: Pain scale 2-4 (Mild) Last Admin: 11/07/20 17:43 Dose: 500 mg Documented by: Albuterol Sulfate (Albuterol 2.5 Mg/3 Ml Neb Daisy) 2.5 mg NEB [id number] [facility] Last Admin: 11/09/20 19:05 Dose: 2.5 mg Documented by: Amitriptyline HCl (Amitriptyline 50 Mg Tab) 100 mg PO BEDTIME [facility] Last Admin: 11/08/20 20:45 Dose: Not Given Documented by: Benzonatate (Benzonatate 100 Mg Cap) 100 mg PO TID PRN PRN Reason: COUGH Cholestyramine Resin (Cholestyramine/Asp 4 Gm/Pkt) 4 gm PO BIDWM [facility] Stop: 11/10/20 17:01 Last Admin: 11/09/20 16:23 Dose: Not Given Documented by: Cyanocobalamin (Cyanocobalamin 1,000 Mcg Tab) 1,000 mcg PO DAILY [facility] Last Admin: 11/09/20 08:49 Dose: Not Given Documented by: Enoxaparin Sodium (Enoxaparin 40 Mg/0.4 Ml) 40 mg SQ DAILY 5 PM [facility] Last Admin: 11/09/20 16:23 Dose: 40 mg Documented by: Famotidine (Famotidine 20 Mg/2 Ml Vial) 20 mg IV DAILY [facility] Last Admin: 11/09/20 08:48 Dose: 20 mg Documented by: Fluoxetine HCl (Fluoxetine 20 Mg Cap) 20 mg PO TID [facility] Last Admin: 11/09/20 13:34 Dose: Not Given Documented by: Furosemide (Furosemide 40 Mg/4 Ml Vial) 40 mg IV DAILY [facility] Last Admin: 11/09/20 08:48 Dose: 40 mg Documented by: Haloperidol Lactate (Haloperidol Lact 5 Mg/Ml Inj) 2 mg IV Q4HP PRN PRN Reason: AGITATION Hydralazine HCl (Hydralazine Hcl 20 Mg/Ml Vial) 5 mg IV Q8H PRN PRN Reason: Titrate to SBP (MUST DEFINE) Hydromorphone HCl (Hydromorphone Hcl 1 Mg/Ml Inj) 1 mg IV Q4H PRN PRN Reason: Pain scale 8-10 (Severe) Sodium Chloride (Sodium Chloride) 250 mls @ 999 mls/hr IV Q15M PRN PRN Reason: HYPOTENSION Ipratropium [place] (Ipratropium Brom 0.5mg/2.5ml) 0.5 mg NEB [id number] [facility] Last Admin: 11/09/20 19:05 Dose: 0.5 mg Documented by: Lactobacillus Acidoph/Bulgaricus (Lactobacillus/Acidophilus Tab) 1 tab PO TID [facility] Last Admin: 11/09/20 13:34 Dose: Not Given Documented by: Lorazepam (Lorazepam 2 Mg/Ml Vial) 2 mg IV Q2HP PRN PRN Reason: SEDATION Last Admin: 11/09/20 09:01 Dose: 2 mg Documented by: Methylprednisolone Sodium Succinate (Methylprednisolone 40 Mg Inj) 40 mg IV Q12HR [facility] Last Admin: 11/09/20 08:48 Dose: 40 mg Documented by: Mirtazapine (Mirtazapine 15 Mg Tab) 15 mg PO DAILY [facility] Last Admin: 11/09/20 08:49 Dose: Not Given Documented by: Loperamide Hcl 1 Mg Per 7.5 Ml Oral Solution 1 ea FT Q8HR [facility] Last Admin: 11/09/20 16:24 Dose: Not Given Documented by: Nutritional Formula (Vital Af 1,000 Ml Bot) 360 ml FT Q6H [facility] Last Admin: 11/09/20 16:24 Dose: Not Given Documented by: Ondansetron HCl (Ondansetron 4 Mg/2 Ml Vial) 4 mg IV Q6HP PRN PRN Reason: NAUSEA / VOMITING Ondansetron HCl (Ondansetron 4 Mg (Odt) Tab) 4 mg PO Q6H PRN PRN Reason: NAUSEA / VOMITING Last Admin: 10/29/20 04:51 Dose: 4 mg Documented by: Sodium Chloride (Flush Normal Saline 10 Ml) 10 ml IV BID [facility] Last Admin: 11/09/20 08:48 Dose: 10 ml Documented by: Microbiology Results 10/27/20 22:10 Blood - Blood Aerobic Blood Culture - Final 10/27/20 22:10 Blood - Blood Blood Culture Gram Stain - Final 10/27/20 22:10 Blood - Blood Anaerobic Blood Culture - Final No growth in 5 days. 10/27/20 22:21 Blood - Blood Aerobic Blood Culture - Final 10/27/20 22:21 Blood - Blood Blood Culture Gram Stain - Final 10/27/20 22:21 Blood - Blood Anaerobic Blood Culture - Final No growth in 5 days. Assessment/ Plan: Nephrology Extubated yesterday but still struggling with breathing Good urine output. Limited IH/ ROS due to respiratory failure No acute events overnight Vitals, medications, blood work and imaging reviewed in the chart. General: Sedated HEENT: Atraumatic Neck: Supple Respiratory: Intubated. BL rhonchi Cardiovascular: Regular rate/rhythm Gastrointestinal: Soft and benign, Non-distended Musculoskeletal: No clubbing, No contractures Integumentary: No cyanosis Neurological: No speech >30min patient care Laboratory Data (last 24 hrs) 10/27/20 21:19: PT 13.2 H, INR 1.15 10/27/20 21:19: WBC 9.10, Hgb 12.0 L, Hct 34.2 L, Plt Count 236 10/27/20 21:19: Sodium 128 L, Potassium 5.0, BUN 41 H, Creatinine 1.89 H, Glucose 101, Magnesium 3.9 H*, Total Bilirubin 0.6, AST 42 H, ALT 33, Alkaline Phosphatase 68 Imagings Data: EXAM DESCRIPTION: RAD - Chest Single View - 10/28/2020 1:00 pm CLINICAL HISTORY: Possible pneumonia hypoxemia Chest pain. COMPARISON: Chest Single View dated 10/27/2020; THORAX WO CONTRAST dated 12/12/2014 FINDINGS: Portable technique limits examination quality. Little overall change is seen in the aeration of lungs since prior study. The heart is normal in size. Right total shoulder arthroplasty. IMPRESSION: Stable chest since 10/27/2020. EXAM DESCRIPTION: RAD - Chest Single View - 11/09/2020 9:35 am CLINICAL HISTORY: hypoxia COMPARISON: November 06 TECHNIQUE: AP portable chest image was obtained 11/09/2020 9:35 am . FINDINGS: Endotracheal tube is no longer identifiable. Enteric tube has been removed as well. Extensive interstitial and alveolar opacification present in the lung neff. This appears worse than the comparison. Some of the apparent progression is due to lower lung volumes. Heart and vasculature are normal. No measurable pleural effusion and no pneumothorax. IMPRESSION: Progressive interstitial and alveolar opacification from November 06 exam only partially due to artifact from lower lung volume. Conclusions/Impression: RAJWINDER likely due to excessive NSAID therapy, resolved -No NSAIDs Hyponatremia -Continue Lasix Hyperkalemia Hypocalcemia -Consider Vitamin D Hypermagnesemia Moderate malnutrition -Maintain nutrition -Continue probiotic Anemia in chronic illness Iron deficiency -Consider IV iron supplementation -Transfuse PRBC as needed RUL PNA Acute hypoxic respiratory failure -Continue Bipap as needed -Continue steroids
[2020-11-09] MEDS ORDERED: HYDROMORPHONE HCL 1 MG/ML INJ ONE (22:55)
[2020-11-10] MEDS: LOPERAMIDE HCL FT SCH ×3 (01:00→16:28)
[2020-11-10] MEDS: IPRATROPIUM BROM 0.5MG/2.5ML NEB SCH ×4 (01:12→20:30)
[2020-11-10] MEDS: ALBUTEROL 2.5 MG/3 ML NEB SOL NEB SCH ×4 (01:12→20:30)
[2020-11-10] MEDS ORDERED: IPRATROPIUM BROM 0.5MG/2.5ML ONE ×4 (01:18→20:18)
[2020-11-10] MEDS ORDERED: ALBUTEROL 2.5 MG/3 ML NEB SOL ONE ×4 (01:18→20:18)
[2020-11-10] MEDS: VITAL AF 1,000 ML BOT FT SCH ×4 (06:00→16:24)
[2020-11-10] MEDS: CHOLESTYRAMINE/ASP 4 GM/PKT PO SCH ×2 (08:00→16:24)
[2020-11-10] MEDS: METHYLPREDNISOLONE 40 MG INJ IV SCH ×2 (08:40→20:30)
[2020-11-10] MEDS: FAMOTIDINE 20 MG/2 ML VIAL IV SCH (08:40)
[2020-11-10] MEDS: FUROSEMIDE 40 MG/4 ML VIAL IV SCH (08:40)
[2020-11-10] MEDS: FLUOXETINE 20 MG CAP PO SCH ×3 (08:41→20:30)
[2020-11-10] MEDS: LACTOBACILLUS/ACIDOPHILUS TAB PO SCH ×3 (08:41→16:25)
[2020-11-10] MEDS: MIRTAZAPINE 15 MG TAB PO SCH (08:41)
[2020-11-10] MEDS: CYANOCOBALAMIN 1,000 MCG TAB PO SCH (08:41)
[2020-11-10] MEDS ORDERED: METHYLPREDNISOLONE 40 MG INJ ONE ×2 (08:47→20:09)
[2020-11-10] MEDS ORDERED: FUROSEMIDE 40 MG/4 ML VIAL ONE (08:47)
[2020-11-10] MEDS ORDERED: FAMOTIDINE 20 MG/2 ML VIAL IV ONE (08:47)
--- NOTE | 2020-11-10 12:12 | P.PN ---
Subjective Date of Service: 11/10/20 Primary Care Provider: unknown Chief Complaint: Respiratory failure Patient nonverbal condition stable was extubated yesterday change to BiPAP no diarrhea Review of Systems is unable to be obtained Physical Examination - Vital Signs Temperature: 97 F Blood Pressure: 126/80 Pulse: 82 Respirations: 22 Pulse Ox (%): 94 - Studies Medications List Reviewed: Yes Assessment & Plan - Problems (Diagnosis) (1) Respiratory failure Current Visit: Yes Status: Acute Plan: Patient is currently improving he has been weaned off BiPAP to high-flow nasal cannula chemistries reviewed white count is declining no further diarrhea reduce dose of Lasix Dc Pepcid continue with steroids at this time will insert dobhoff tube feeds LTAC Qualifiers: Chronicity: acute
[2020-11-10] MEDS: ENOXAPARIN 40 MG/0.4 ML SQ SCH (17:14)
[2020-11-10] MEDS ORDERED: ENOXAPARIN 40 MG/0.4 ML SQ ONE (17:33)
--- NOTE | 2020-11-10 21:16 | P.PN ---
Date of Service: 11/10/20 Vital Signs Temp Pulse Resp BP Pulse Ox 97.2 F 91 H 21 H 109/79 95 11/10/20 16:00 11/10/20 18:00 11/10/20 18:00 11/10/20 18:00 11/10/20 18:00 Medications Acetaminophen (Acetaminophen 500 Mg Tab) 500 mg PO Q4HP PRN PRN Reason: Pain scale 2-4 (Mild) Last Admin: 11/07/20 17:43 Dose: 500 mg Documented by: Albuterol Sulfate (Albuterol 2.5 Mg/3 Ml Neb Daisy) 2.5 mg NEB [id number] [facility] Last Admin: 11/10/20 13:46 Dose: 2.5 mg Documented by: Benzonatate (Benzonatate 100 Mg Cap) 100 mg PO TID PRN PRN Reason: COUGH Cyanocobalamin (Cyanocobalamin 1,000 Mcg Tab) 1,000 mcg PO DAILY [facility] Last Admin: 11/10/20 08:41 Dose: Not Given Documented by: Enoxaparin Sodium (Enoxaparin 40 Mg/0.4 Ml) 40 mg SQ DAILY 5 PM [facility] Last Admin: 11/10/20 17:14 Dose: 40 mg Documented by: Fluoxetine HCl (Fluoxetine 20 Mg Cap) 20 mg PO TID [facility] Last Admin: 11/10/20 20:30 Dose: Not Given Documented by: Furosemide (Furosemide 20 Mg/ 2ml Vial) 20 mg IV DAILY [facility] Haloperidol Lactate (Haloperidol Lact 5 Mg/Ml Inj) 2 mg IV Q4HP PRN PRN Reason: AGITATION Hydralazine HCl (Hydralazine Hcl 20 Mg/Ml Vial) 5 mg IV Q8H PRN PRN Reason: Titrate to SBP (MUST DEFINE) Hydromorphone HCl (Hydromorphone Hcl 1 Mg/Ml Inj) 1 mg IV Q4H PRN PRN Reason: Pain scale 8-10 (Severe) Sodium Chloride (Sodium Chloride) 250 mls @ 999 mls/hr IV Q15M PRN PRN Reason: HYPOTENSION Ipratropium [place] (Ipratropium Brom 0.5mg/2.5ml) 0.5 mg NEB [id number] [facility] Last Admin: 11/10/20 13:46 Dose: 0.5 mg Documented by: Lactobacillus Acidoph/Bulgaricus (Lactobacillus/Acidophilus Tab) 1 tab PO TID [facility] Last Admin: 11/10/20 16:25 Dose: Not Given Documented by: Lorazepam (Lorazepam 2 Mg/Ml Vial) 2 mg IV Q2HP PRN PRN Reason: SEDATION Last Admin: 11/09/20 09:01 Dose: 2 mg Documented by: Methylprednisolone Sodium Succinate (Methylprednisolone 40 Mg Inj) 40 mg IV Q12HR [facility] Last Admin: 11/10/20 20:30 Dose: 40 mg Documented by: Mirtazapine (Mirtazapine 15 Mg Tab) 15 mg PO DAILY [facility] Last Admin: 11/10/20 08:41 Dose: Not Given Documented by: Loperamide Hcl 1 Mg Per 7.5 Ml Oral Solution 1 ea FT Q8HR [facility] Last Admin: 11/10/20 16:28 Dose: Not Given Documented by: Nutritional Formula (Vital Af 1,000 Ml Bot) 360 ml FT Q6H [facility] Last Admin: 11/10/20 16:24 Dose: Not Given Documented by: Ondansetron HCl (Ondansetron 4 Mg/2 Ml Vial) 4 mg IV Q6HP PRN PRN Reason: NAUSEA / VOMITING Ondansetron HCl (Ondansetron 4 Mg (Odt) Tab) 4 mg PO Q6H PRN PRN Reason: NAUSEA / VOMITING Last Admin: 10/29/20 04:51 Dose: 4 mg Documented by: Sodium Chloride (Flush Normal Saline 10 Ml) 10 ml IV BID [facility] Last Admin: 11/10/20 20:30 Dose: 10 ml Documented by: Microbiology Results 10/27/20 22:10 Blood - Blood Aerobic Blood Culture - Final 10/27/20 22:10 Blood - Blood Blood Culture Gram Stain - Final 10/27/20 22:10 Blood - Blood Anaerobic Blood Culture - Final No growth in 5 days. 10/27/20 22:21 Blood - Blood Aerobic Blood Culture - Final 10/27/20 22:21 Blood - Blood Blood Culture Gram Stain - Final 10/27/20 22:21 Blood - Blood Anaerobic Blood Culture - Final No growth in 5 days. Assessment/ Plan: Nephrology Currently on Bipap Good urine output Limited IH/ ROS due to respiratory failure/ AMS No acute events overnight Vitals, medications, blood work and imaging reviewed in the chart. General: NAD. Bipap HEENT: Atraumatic Neck: Supple Respiratory: Symmetric Cardiovascular: Regular rate/rhythm Gastrointestinal: Soft and benign, Non-distended Musculoskeletal: No clubbing, No contractures Integumentary: No cyanosis Neurological: No speech >30min patient care Laboratory Data (last 24 hrs) 10/27/20 21:19: PT 13.2 H, INR 1.15 10/27/20 21:19: WBC 9.10, Hgb 12.0 L, Hct 34.2 L, Plt Count 236 10/27/20 21:19: Sodium 128 L, Potassium 5.0, BUN 41 H, Creatinine 1.89 H, Glucose 101, Magnesium 3.9 H*, Total Bilirubin 0.6, AST 42 H, ALT 33, Alkaline Phosphatase 68 Imagings Data: EXAM DESCRIPTION: RAD - Chest Single View - 10/28/2020 1:00 pm CLINICAL HISTORY: Possible pneumonia hypoxemia Chest pain. COMPARISON: Chest Single View dated 10/27/2020; THORAX WO CONTRAST dated 12/12/2014 FINDINGS: Portable technique limits examination quality. Little overall change is seen in the aeration of lungs since prior study. The heart is normal in size. Right total shoulder arthroplasty. IMPRESSION: Stable chest since 10/27/2020. EXAM DESCRIPTION: RAD - Chest Single View - 11/09/2020 9:35 am CLINICAL HISTORY: hypoxia COMPARISON: November 06 TECHNIQUE: AP portable chest image was obtained 11/09/2020 9:35 am . FINDINGS: Endotracheal tube is no longer identifiable. Enteric tube has been removed as well. Extensive interstitial and alveolar opacification present in the lung neff. This appears worse than the comparison. Some of the apparent progression is due to lower lung volumes. Heart and vasculature are normal. No measurable pleural effusion and no pneumothorax. IMPRESSION: Progressive interstitial and alveolar opacification from November 06 exam only partially due to artifact from lower lung volume. Conclusions/Impression: RAJWINDER likely due to excessive NSAID therapy, resolved -No NSAIDs Hyponatremia -Continue Lasix Hyperkalemia Hypocalcemia -Consider Vitamin D Hypermagnesemia Moderate malnutrition -Maintain nutrition -Continue probiotic Anemia in chronic illness Iron deficiency -Consider IV iron supplementation -Transfuse PRBC as needed RUL PNA Acute hypoxic respiratory failure -Continue Bipap as needed -Continue steroids
[2020-11-11] MEDS: LOPERAMIDE HCL FT SCH ×3 (01:00→16:01)
[2020-11-11] MEDS: ALBUTEROL 2.5 MG/3 ML NEB SOL NEB SCH ×4 (02:10→20:13)
[2020-11-11] MEDS: IPRATROPIUM BROM 0.5MG/2.5ML NEB SCH ×4 (02:10→20:13)
[2020-11-11] MEDS ORDERED: IPRATROPIUM BROM 0.5MG/2.5ML ONE ×4 (02:25→20:15)
[2020-11-11] MEDS: VITAL AF 1,000 ML BOT FT SCH ×3 (06:00→08:00)
[2020-11-11 06:39] LABS: Hematocrit 35.8 % (39.6-49.0); RBC Red Blood Cell Count 3.97 M/uL (4.33-5.43)
[2020-11-11 07:35] LABS: BUN Blood Urea Nitrogen 58 mg/dL (7-18); Bicarbonate 27 mmol/L (21-32); Glucose Level 138 mg/dL (74-106); Magnesium 2.8 mg/dL (1.8-2.4); Phosphorus 4.1 mg/dL (2.5-4.9); Potassium 4.3 mmol/L (3.5-5.1); Sodium Level 144 mmol/L (136-145)
[2020-11-11] MEDS: FUROSEMIDE 20 MG/ 2ML VIAL IV SCH (07:59)
[2020-11-11] MEDS: CYANOCOBALAMIN 1,000 MCG TAB PO SCH (08:00)
[2020-11-11] MEDS: FLUOXETINE 20 MG CAP PO SCH ×3 (08:00→20:28)
[2020-11-11] MEDS: MIRTAZAPINE 15 MG TAB PO SCH (08:00)
[2020-11-11] MEDS: METHYLPREDNISOLONE 40 MG INJ IV SCH ×2 (08:00→20:29)
[2020-11-11] MEDS: LACTOBACILLUS/ACIDOPHILUS TAB PO SCH ×3 (08:12→20:28)
[2020-11-11] MEDS ORDERED: FUROSEMIDE 20 MG/ 2ML VIAL ONE (08:14)
[2020-11-11] MEDS ORDERED: METHYLPREDNISOLONE 40 MG INJ ONE ×2 (08:14→20:44)
[2020-11-11] MEDS ORDERED: ENOXAPARIN 40 MG/0.4 ML SQ ONE (08:14)
[2020-11-11] MEDS ORDERED: ALBUTEROL 2.5 MG/3 ML NEB SOL ONE ×3 (09:10→20:15)
[2020-11-11 10:06] LABS: Blood Morphology Comment NOT SEEN (NOT SEEN); Platelet Estimate ADEQ
--- NOTE | 2020-11-11 11:05 | P.PN ---
Subjective Date of Service: 11/11/20 Primary Care Provider: unknown Chief Complaint: Respiratory failure Patient is doing much better he is on nasal cannula oxygen more alert responsive cooperative unable to insert nasogastric tube yesterday Review of Systems General: Weakness Respiratory: Shortness of Breath Physical Examination - Vital Signs Temperature: 97.4 F Blood Pressure: 114/87 Pulse: 88 Respirations: 24 Pulse Ox (%): 94 - Studies Medications List Reviewed: Yes Assessment & Plan - Problems (Diagnosis) (1) Respiratory failure Current Visit: Yes Status: Acute Plan: Patient is doing much better he is on nasal cannula oxygen he is more alert responsive plan to transfer him to the floor advance diet white count is a bit elevated continue to monitor no evidence of clinical sepsis cultures all negative change to p.o. prednisone when able to eat and drink Qualifiers: Chronicity: acute Physician Review Additional Text: Physical Exam: GENERAL: Patient remains intubated and sedated. Currently on 60% FiO2. VITAL SIGNS: Reviewed NECK: Supple. No carotid bruits. No lymphadenopathy or thyromegaly. LUNGS: Crackles to the bases. HEART: Regular rate and rhythm ABDOMEN: Soft. EXTREMITIES: Without any cyanosis, clubbing, rash, lesions or peripheral edema. NEUROLOGIC: Patient remains intubated and sedated SKIN: Normal color, turgor and temperature. No ulcerations or rashes noted. Impression: Dyspnea secondary to acute respiratory failure related to right upper lobe pneumonia likely aspirationbilateral pleural effusions suspect underlying acute on chronic diastolic CHF COPD Hypertension PTSD Anemia of chronic disease Chronic pain with neuropathy Diarrhea likely from Kayexalate Plan: Dyspnea secondary to acute respiratory failure related to right upper lobe pneumonia likely aspiration/bilateral pleural effusions suspect underlying acute on chronic diastolic CHF: Patient remains intubated and sedated. Patient requiring less FiO2 on Lasix. Respiratory to continue to wean off ventilator and sedation medication. Continue Lasix 40 mg. Case discussed with pulmonology yesterday. Likely underlying CHF. Continue IV antibiotic therapy for pneumonia. Continue COPD medication. Patient with diarrhea. This is likely from Kayexalate given the other day. Rectal tube in place. We will monitor this closely. We will add lactobacillus. Continue DVT prophylaxis. Continue other medication. NG tube feeds in place. Discussed plan of care with daughter who makes most of the decisions. Patient lives at home primarily by himself. does a lot of traveling. Patient is a . Daughter agrees with LTAC placement if needed. Other consideration would be if the patient is able to be weaned off ventilator and more appropriate than consider discussing with patient and daughter about moving to [facility] where she lives. This would mean the possibility of a skilled placement or long-term care. She would like to further discuss this in detail over the next 48 hours depending on what his needs will be. I will turn the service over to the hospitalist team tomorrow. I will go over the plan of care with him. Acute renal injury with chronic renal disease stage III likely medication relatedNSAIDs: Overall improved. Continue nephrology recommendations. PTSD: Restart Prozac, mirtazapine and Elavil. Hold mirtazapine and Elavil if with increased sedation. COPD: Continue IV steroids and COPD medication Hypertension: Hold metoprolol. Continue with IV medication as needed. Anemia of chronic disease: We will monitor closely. Chronic pain with neuropathy: Patient takes Lyrica. Continue to hold medication. Consider restarting once the patient is more alert. Diarrhea likely from Kayexalate: Continue to monitor closely. Rectal system in place. Will start lactobacillus. Code Status: Full Code DVT prophylaxis: Lovenox Advanced Care Planning-30 minutes: Discussed at length with Millicent at [phone]. Daughter understands current situation. Daughter reports patient primarily lives at home. does a lot of traveling and not able to take care of the patient. His demands have been increased. Daughter agrees with the possibility of LTAC placement if required. Other option would be if he was able to be weaned off to consider skilled placement then possible long-term care. Daughter would like for the patient to come near [facility] where she lives so that she can better take care of him. We will talk to manager social media to help address.
[2020-11-11] MEDS: ENOXAPARIN 40 MG/0.4 ML SQ SCH (16:44)
[2020-11-12] MEDS: LOPERAMIDE HCL FT SCH ×3 (00:24→17:00)
[2020-11-12] MEDS: ALBUTEROL 2.5 MG/3 ML NEB SOL NEB SCH ×2 (03:23→08:05)
[2020-11-12] MEDS: IPRATROPIUM BROM 0.5MG/2.5ML NEB SCH ×2 (03:23→08:05)
[2020-11-12] MEDS ORDERED: IPRATROPIUM BROM 0.5MG/2.5ML ONE ×4 (03:43→19:49)
[2020-11-12] MEDS ORDERED: ALBUTEROL 2.5 MG/3 ML NEB SOL ONE ×3 (03:43→08:21)
--- NOTE | 2020-11-12 07:29 | P.PN ---
Date of Service: 11/11/20 Vital Signs Temp Pulse Resp BP Pulse Ox 97.0 F 88 21 H 119/86 92 11/12/20 04:00 11/12/20 06:00 11/12/20 06:00 11/12/20 06:00 11/12/20 06:00 Medications Acetaminophen (Acetaminophen 500 Mg Tab) 500 mg PO Q4HP PRN PRN Reason: Pain scale 2-4 (Mild) Last Admin: 11/07/20 17:43 Dose: 500 mg Documented by: Albuterol Sulfate (Albuterol 2.5 Mg/3 Ml Neb Daisy) 2.5 mg NEB [id number] [facility] Last Admin: 11/12/20 03:23 Dose: 2.5 mg Documented by: Benzonatate (Benzonatate 100 Mg Cap) 100 mg PO TID PRN PRN Reason: COUGH Cyanocobalamin (Cyanocobalamin 1,000 Mcg Tab) 1,000 mcg PO DAILY [facility] Last Admin: 11/11/20 08:00 Dose: Not Given Documented by: Enoxaparin Sodium (Enoxaparin 40 Mg/0.4 Ml) 40 mg SQ DAILY 5 PM [facility] Last Admin: 11/11/20 16:44 Dose: 40 mg Documented by: Fluoxetine HCl (Fluoxetine 20 Mg Cap) 20 mg PO TID [facility] Last Admin: 11/11/20 20:28 Dose: 20 mg Documented by: Furosemide (Furosemide 20 Mg/ 2ml Vial) 20 mg IV DAILY [facility] Last Admin: 11/11/20 07:59 Dose: 20 mg Documented by: Haloperidol Lactate (Haloperidol Lact 5 Mg/Ml Inj) 2 mg IV Q4HP PRN PRN Reason: AGITATION Hydralazine HCl (Hydralazine Hcl 20 Mg/Ml Vial) 5 mg IV Q8H PRN PRN Reason: Titrate to SBP (MUST DEFINE) Hydromorphone HCl (Hydromorphone Hcl 1 Mg/Ml Inj) 1 mg IV Q4H PRN PRN Reason: Pain scale 8-10 (Severe) Sodium Chloride (Sodium Chloride) 250 mls @ 999 mls/hr IV Q15M PRN PRN Reason: HYPOTENSION Ipratropium [place] (Ipratropium Brom 0.5mg/2.5ml) 0.5 mg NEB [id number] [facility] Last Admin: 11/12/20 03:23 Dose: 0.5 mg Documented by: Lactobacillus Acidoph/Bulgaricus (Lactobacillus/Acidophilus Tab) 1 tab PO TID [facility] Last Admin: 11/11/20 20:28 Dose: 1 tab Documented by: Lorazepam (Lorazepam 2 Mg/Ml Vial) 2 mg IV Q2HP PRN PRN Reason: SEDATION Last Admin: 11/09/20 09:01 Dose: 2 mg Documented by: Methylprednisolone Sodium Succinate (Methylprednisolone 40 Mg Inj) 40 mg IV Q12HR [facility] Last Admin: 11/11/20 20:29 Dose: 40 mg Documented by: Mirtazapine (Mirtazapine 15 Mg Tab) 15 mg PO DAILY [facility] Last Admin: 11/11/20 08:00 Dose: Not Given Documented by: Loperamide Hcl 1 Mg Per 7.5 Ml Oral Solution 1 ea FT Q8HR [facility] Last Admin: 11/12/20 00:24 Dose: Not Given Documented by: Ondansetron HCl (Ondansetron 4 Mg/2 Ml Vial) 4 mg IV Q6HP PRN PRN Reason: NAUSEA / VOMITING Ondansetron HCl (Ondansetron 4 Mg (Odt) Tab) 4 mg PO Q6H PRN PRN Reason: NAUSEA / VOMITING Last Admin: 10/29/20 04:51 Dose: 4 mg Documented by: Sodium Chloride (Flush Normal Saline 10 Ml) 10 ml IV BID [facility] Last Admin: 11/11/20 20:28 Dose: 10 ml Documented by: Microbiology Results 10/27/20 22:10 Blood - Blood Aerobic Blood Culture - Final 10/27/20 22:10 Blood - Blood Blood Culture Gram Stain - Final 10/27/20 22:10 Blood - Blood Anaerobic Blood Culture - Final No growth in 5 days. 10/27/20 22:21 Blood - Blood Aerobic Blood Culture - Final 10/27/20 22:21 Blood - Blood Blood Culture Gram Stain - Final 10/27/20 22:21 Blood - Blood Anaerobic Blood Culture - Final No growth in 5 days. Assessment/ Plan: Nephrology Currently off Bipap Good urine output Limited IH/ ROS due to AMS No acute events overnight Vitals, medications, blood work and imaging reviewed in the chart. General: NAD. Bipap HEENT: Atraumatic Neck: Supple Respiratory: Symmetric Cardiovascular: Regular rate/rhythm Gastrointestinal: Soft and benign, Non-distended Musculoskeletal: No clubbing, No contractures Integumentary: No cyanosis Neurological: No speech Laboratory Data (last 24 hrs) 10/27/20 21:19: PT 13.2 H, INR 1.15 10/27/20 21:19: WBC 9.10, Hgb 12.0 L, Hct 34.2 L, Plt Count 236 10/27/20 21:19: Sodium 128 L, Potassium 5.0, BUN 41 H, Creatinine 1.89 H, Glucose 101, Magnesium 3.9 H*, Total Bilirubin 0.6, AST 42 H, ALT 33, Alkaline Phosphatase 68 Imagings Data: EXAM DESCRIPTION: RAD - Chest Single View - 10/28/2020 1:00 pm CLINICAL HISTORY: Possible pneumonia hypoxemia Chest pain. COMPARISON: Chest Single View dated 10/27/2020; THORAX WO CONTRAST dated 12/12/2014 FINDINGS: Portable technique limits examination quality. Little overall change is seen in the aeration of lungs since prior study. The heart is normal in size. Right total shoulder arthroplasty. IMPRESSION: Stable chest since 10/27/2020. EXAM DESCRIPTION: RAD - Chest Single View - 11/09/2020 9:35 am CLINICAL HISTORY: hypoxia COMPARISON: November 06 TECHNIQUE: AP portable chest image was obtained 11/09/2020 9:35 am . FINDINGS: Endotracheal tube is no longer identifiable. Enteric tube has been removed as well. Extensive interstitial and alveolar opacification present in the lung neff. This appears worse than the comparison. Some of the apparent progression is due to lower lung volumes. Heart and vasculature are normal. No measurable pleural effusion and no pneumothorax. IMPRESSION: Progressive interstitial and alveolar opacification from November 06 exam only partially due to artifact from lower lung volume. Conclusions/Impression: RAJWINDER likely due to excessive NSAID therapy, resolved -No NSAIDs Hyponatremia -Continue Lasix Hyperkalemia Hypocalcemia -Consider Vitamin D Hypermagnesemia Moderate malnutrition -Maintain nutrition -Continue probiotic Anemia in chronic illness Iron deficiency 6% -Consider IV iron supplementation -Transfuse PRBC as needed RUL PNA Acute hypoxic respiratory failure -Continue Bipap as needed -Continue steroids
[2020-11-12] MEDS ORDERED: METHYLPREDNISOLONE 40 MG INJ ONE (07:56)
[2020-11-12] MEDS ORDERED: FUROSEMIDE 20 MG/ 2ML VIAL ONE (07:56)
[2020-11-12] MEDS: FLUOXETINE 20 MG CAP PO SCH ×3 (08:09→20:12)
[2020-11-12] MEDS: CYANOCOBALAMIN 1,000 MCG TAB PO SCH (08:09)
[2020-11-12] MEDS: METHYLPREDNISOLONE 40 MG INJ IV SCH (08:09)
[2020-11-12] MEDS: FUROSEMIDE 20 MG/ 2ML VIAL IV SCH (08:09)
[2020-11-12] MEDS: LACTOBACILLUS/ACIDOPHILUS TAB PO SCH ×3 (08:10→20:12)
--- NOTE | 2020-11-12 11:27 | P.PN ---
Subjective Date of Service: 11/12/20 Primary Care Provider: unknown Chief Complaint: Respiratory failure Patient is improving oxygen requirements declining still very weak alert responsive cooperative Review of Systems General: Weakness Respiratory: Shortness of Breath Physical Examination - Vital Signs Temperature: 97.8 F Blood Pressure: 121/83 Pulse: 86 Respirations: 21 Pulse Ox (%): 95 - Physical Exam General: Alert, Oriented x3 Respiratory: Clear to auscultation bilaterally, Diminished Cardiovascular: No edema, Normal S1 S2 - Studies Medications List Reviewed: Yes Assessment & Plan - Problems (Diagnosis) (1) Respiratory failure Current Visit: Yes Status: Acute Plan: Doing much better oxygen requirements are declining continue to titrate down Dc Lasix change to p.o. prednisone Dc IV Solu-Medrol add Brovana nebulizers on a p.r.n. basis stable to be transferred to the floor and he has desat on eating tolerating diet chemistries reviewed vital signs stable Qualifiers: Chronicity: acute Physician Review Additional Text: Physical Exam: GENERAL: Patient remains intubated and sedated. Currently on 60% FiO2. VITAL SIGNS: Reviewed NECK: Supple. No carotid bruits. No lymphadenopathy or thyromegaly. LUNGS: Crackles to the bases. HEART: Regular rate and rhythm ABDOMEN: Soft. EXTREMITIES: Without any cyanosis, clubbing, rash, lesions or peripheral edema. NEUROLOGIC: Patient remains intubated and sedated SKIN: Normal color, turgor and temperature. No ulcerations or rashes noted. Impression: Dyspnea secondary to acute respiratory failure related to right upper lobe pneumonia likely aspirationbilateral pleural effusions suspect underlying acute on chronic diastolic CHF COPD Hypertension PTSD Anemia of chronic disease Chronic pain with neuropathy Diarrhea likely from Kayexalate Plan: Dyspnea secondary to acute respiratory failure related to right upper lobe pneumonia likely aspiration/bilateral pleural effusions suspect underlying acute on chronic diastolic CHF: Patient remains intubated and sedated. Patient requiring less FiO2 on Lasix. Respiratory to continue to wean off ventilator and sedation medication. Continue Lasix 40 mg. Case discussed with pulmonology yesterday. Likely underlying CHF. Continue IV antibiotic therapy for pneumonia. Continue COPD medication. Patient with diarrhea. This is likely from Kayexalate given the other day. Rectal tube in place. We will monitor this closely. We will add lactobacillus. Continue DVT prophylaxis. Continue other medication. NG tube feeds in place. Discussed plan of care with daughter who makes most of the decisions. Patient lives at home primarily by himself. does a lot of traveling. Patient is a . Daughter agrees with LTAC placement if needed. Other consideration would be if the patient is able to be weaned off ventilator and more appropriate than consider discussing with patient and daughter about moving to [facility] where she lives. This would mean the possibility of a skilled placement or long-term care. She would like to further discuss this in detail over the next 48 hours depending on what his needs will be. I will turn the service over to the hospitalist team tomorrow. I will go over the plan of care with him. Acute renal injury with chronic renal disease stage III likely medication relatedNSAIDs: Overall improved. Continue nephrology recommendations. PTSD: Restart Prozac, mirtazapine and Elavil. Hold mirtazapine and Elavil if with increased sedation. COPD: Continue IV steroids and COPD medication Hypertension: Hold metoprolol. Continue with IV medication as needed. Anemia of chronic disease: We will monitor closely. Chronic pain with neuropathy: Patient takes Lyrica. Continue to hold medication. Consider restarting once the patient is more alert. Diarrhea likely from Kayexalate: Continue to monitor closely. Rectal system in place. Will start lactobacillus. Code Status: Full Code DVT prophylaxis: Lovenox Advanced Care Planning-30 minutes: Discussed at length with Millicent at [phone]. Daughter understands current situation. Daughter reports patient primarily lives at home. does a lot of traveling and not able to take care of the patient. His demands have been increased. Daughter agrees with the possibility of LTAC placement if required. Other option would be if he was able to be weaned off to consider skilled placement then possible long-term care. Daughter would like for the patient to come near [facility] where she lives so that she can better take care of him. We will talk to director social welfare to help address.
--- NOTE | 2020-11-12 12:36 | P.PN ---
Date of Service: 11/10/20 Subjective Patient is clinically doing well. Patient was extubated and has done well. On high-flow oxygen right now. Review of Systems Unable to obtain Physical Examination - Vital Signs Reviewed - Physical Exam General: Awake and alert with generalized weakness Respiratory: Basilar crackles with upper airway noise Cardiovascular: Regular rate/rhythm, Normal S1 S2, Systolic murmur Gastrointestinal: Normal bowel sounds, Soft and benign, Non-distended, No tenderness Musculoskeletal: No clubbing or cyanosis no edema Neurological: Generalized weakness with decreased range of motion of the upper extremities Assessment & Plan - Problems (Diagnosis) (1) Pneumonia Current Visit: Yes Status: Acute Qualifiers: Pneumonia type: due to unspecified organism Laterality: right Lung location: upper lobe of lung Qualified Code(s): J18.9 - Pneumonia, unspecified organism (2) Chronic low back pain Current Visit: Yes Status: Acute (3) Hypoxia Current Visit: Yes Status: Acute (4) Respiratory failure Current Visit: Yes Status: Acute (5) COPD (chronic obstructive pulmonary disease) Current Visit: Yes Status: Chronic Qualifiers: COPD type: unspecified COPD Qualified Code(s): J44.9 - Chronic obstructive pulmonary disease, unspecified (6) HTN (hypertension) Current Visit: Yes Status: Chronic Qualifiers: Hypertension type: essential hypertension Qualified Code(s): I10 - Essential (primary) hypertension - Plan Continue with plan of care as mentioned below 1. Continue with IV antibiotics; may be able to switch to oral if he is able to swallow 2. Cultures have been negative 3. Repeat labs as needed 4. Patient status post extubation. Continue to monitor closely 6. Continue with nebs and IV steroids 7. Titrate FiO2; 8. Monitor labs closely 9. GI and DVT prophylaxis
--- NOTE | 2020-11-12 12:44 | P.PN ---
Date of Service: 11/11/20 Subjective Patient with generalized weakness. Patient strength really has not improved. Swallowing study was evaluated and pureed diet recommended. Continue with aggressive physical therapy Review of Systems Unable to obtain Physical Examination - Vital Signs Reviewed - Physical Exam General: Awake and alert with generalized weakness Respiratory: Basilar crackles with upper airway noise Cardiovascular: Regular rate/rhythm, Normal S1 S2, Systolic murmur Gastrointestinal: Normal bowel sounds, Soft and benign, Non-distended, No tenderness Musculoskeletal: No clubbing or cyanosis no edema Neurological: Strength is 4/5; Assessment & Plan - Problems (Diagnosis) (1) Pneumonia Current Visit: Yes Status: Acute Qualifiers: Pneumonia type: due to unspecified organism Laterality: right Lung location: upper lobe of lung Qualified Code(s): J18.9 - Pneumonia, unspecified organism (2) Chronic low back pain Current Visit: Yes Status: Acute (3) Hypoxia Current Visit: Yes Status: Acute (4) Respiratory failure Current Visit: Yes Status: Acute (5) COPD (chronic obstructive pulmonary disease) Current Visit: Yes Status: Chronic Qualifiers: COPD type: unspecified COPD Qualified Code(s): J44.9 - Chronic obstructive pulmonary disease, unspecified (6) HTN (hypertension) Current Visit: Yes Status: Chronic Qualifiers: Hypertension type: essential hypertension Qualified Code(s): I10 - Essential (primary) hypertension - Plan Continue with plan of care as mentioned below 1. Will start switching his med to oral and work on rehab placement 2. Out of bed into a chair t.i.d./physical therapy and speech therapy 3. Repeat labs as needed 4. Patient status post extubation day 2. Continue to monitor closely 6. Continue with nebs and IV steroids; should be able to switch to oral steroids 7. Titrate FiO2; 8. Monitor labs as needed 9. GI and DVT prophylaxis
--- NOTE | 2020-11-12 12:59 | P.PN ---
Date of Service: 11/12/20 Subjective Worked with patient. His lower extremity strength was adequate-4/5. 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 Work on increasing range of motion. Patient has had left-sided rotator cuff surgery and right side shoulder repair. We need to increase his range of motion and physical activity. He was able to pull my hand down and raise his legs fairly effectively. He should be able the stand and possibly walk in place. May be able to walk a few steps as well. Significant critical care myopathy. Review of Systems Unable to obtain Physical Examination - Vital Signs Reviewed - Physical Exam General: Awake and alert with generalized weakness Respiratory: Basilar crackles with upper airway noise Cardiovascular: Regular rate/rhythm, Normal S1 S2, Systolic murmur Gastrointestinal: Normal bowel sounds, Soft and benign, Non-distended, No tenderness Musculoskeletal: No clubbing or cyanosis no edema Neurological: Strength is 4/5; Assessment & Plan - Problems (Diagnosis) (1) Pneumonia Current Visit: Yes Status: Acute Qualifiers: Pneumonia type: due to unspecified organism Laterality: right Lung location: upper lobe of lung Qualified Code(s): J18.9 - Pneumonia, unspecified organism (2) Chronic low back pain Current Visit: Yes Status: Acute (3) Hypoxia Current Visit: Yes Status: Acute (4) Respiratory failure Current Visit: Yes Status: Acute (5) COPD (chronic obstructive pulmonary disease) Current Visit: Yes Status: Chronic Qualifiers: COPD type: unspecified COPD Qualified Code(s): J44.9 - Chronic obstructive pulmonary disease, unspecified (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 Awaiting physical therapy evaluation today. Rehab placement is pending 2. Out of bed into a chair t.i.d./physical therapy and speech therapy 3. Oxygen requirements are down a 55% FiO2 on high-flow. Continue to wean this down anything keep improving his strength. Will advice him using an incentive spirometer. 4. Patient status post extubation day 3. Repeating chest x-ray 6. Changing to oral steroids 7. Titrate FiO2; transfer to general medical floor 8. Monitor labs as needed 9. GI and DVT prophylaxis
--- NOTE | 2020-11-12 13:16 | RAD REPORT ---
EXAM DESCRIPTION: RAD - Chest Single View - 11/12/2020 1:03 pm CLINICAL HISTORY: pneumonia Chest pain. COMPARISON: Chest Single View dated 11/09/2020; Chest Single View dated 11/06/2020; Chest Single View dated 11/06/2020; Chest Single View dated 11/05/2020 FINDINGS: Portable technique limits examination quality. Bilateral pulmonary opacities show no significant change since prior study. The heart is normal in si ze. Right-sided PICC line is in place. IMPRESSION: Stable chest since 11/09/2020.
[2020-11-12 13:20] LABS: Absolute Lymphocytes (CBC) 0.5 K/uL (0.7-4.9); MPV 9.4 fL (7.6-11.3)
[2020-11-12 13:25] LABS: Basophils % 0.2 % (0-1.3); Hematocrit 38.7 % (39.6-49.0); RBC Red Blood Cell Count 4.29 M/uL (4.33-5.43)
[2020-11-12 13:38] LABS: Potassium 4.6 mmol/L (3.5-5.1)
[2020-11-12 14:50] LABS: Blood Morphology Comment NOT SEEN (NOT SEEN); Platelet Estimate ADEQ
[2020-11-12] MEDS: ENOXAPARIN 40 MG/0.4 ML SQ SCH (17:17)
[2020-11-12] MEDS ORDERED: ENOXAPARIN 40 MG/0.4 ML SQ ONE (17:36)
[2020-11-12] MEDS: ARFORMOTEROL TARTRATE 15 MCG/2 ML VIAL.NEB NEB SCH (20:00)
[2020-11-12] MEDS: predniSONE 20 MG TAB PO SCH (20:12)
[2020-11-12] MEDS: MIRTAZAPINE 15 MG TAB PO SCH (20:12)
[2020-11-12] MEDS: IPRATROPIUM BROM 0.5MG/2.5ML NEB PRN (20:16)
[2020-11-12] MEDS ORDERED: predniSONE 20 MG TAB ONE (20:28)
--- NOTE | 2020-11-13 00:09 | P.PN ---
Date of Service: 11/13/20 Subjective Patient continues to do well with no new complaints. Strength continues to improve. Working on inpatient rehab placement. Patient was critical care myopathy. Incentive spirometer to bedside along with out of bed into a chair with meals. Oxygen requirements continues to go down. Chest x-ray continues to show bilateral infiltrates. Review of Systems Unable to obtain Physical Examination - Vital Signs Reviewed - Physical Exam General: Patient following commands; generalized weakness Respiratory: Basilar crackles Cardiovascular: Regular rate/rhythm, Normal S1 S2, Systolic murmur Gastrointestinal: Normal bowel sounds, Soft and benign, Non-distended, No tenderness Musculoskeletal: No clubbing or cyanosis no edema Neurological: Sensation intact, Cranial nerves 3-12 intact; generalized weakness strength is 4-/5 Assessment & Plan - Problems (Diagnosis) (1) Pneumonia Current Visit: Yes Status: Acute Pneumonia type: due to unspecified organism Laterality: right Lung location: upper lobe of lung Qualified Code(s): J18.9 - Pneumonia, unspecified organism (2) Chronic low back pain Current Visit: Yes Status: Acute (3) Hypoxia Current Visit: Yes Status: Acute (4) Respiratory failure Current Visit: Yes Status: Acute (5) COPD (chronic obstructive pulmonary disease) Current Visit: Yes Status: Chronic COPD type: unspecified COPD Qualified Code(s): J44.9 - Chronic obstructive pulmonary disease, unspecified (6) HTN (hypertension) Current Visit: Yes Status: Chronic Hypertension type: essential hypertension Qualified Code(s): I10 - Essential (primary) hypertension - Plan Continue with plan of care as mentioned below 1. Continues with elevated white count and bilateral infiltrates also seen on chest x-ray. Weaned down steroids. 2. Incentive spirometer to bedside 3. Cultures been negative. Still with significant leukocytosis 4. Continue with nebs 5. Titrate FiO2; 6. Physical therapy will need to continue work with patient daily. Speech therapy evaluation showed pureed diet recommendation. 7. GI and DVT prophylaxis Transfer to general medical floor
[2020-11-13] MEDS: LOPERAMIDE HCL FT SCH ×3 (01:00→16:39)
[2020-11-13 07:29] LABS: Basophils % 0.3 % (0-1.3); Hematocrit 39.4 % (39.6-49.0); Lymphocytes % 3.6 % (15.3-44.8); MPV 10.3 fL (7.6-11.3); RBC Red Blood Cell Count 4.32 M/uL (4.33-5.43)
[2020-11-13] MEDS: LACTOBACILLUS/ACIDOPHILUS TAB PO SCH ×3 (08:07→20:13)
[2020-11-13] MEDS: CYANOCOBALAMIN 1,000 MCG TAB PO SCH (08:07)
[2020-11-13] MEDS: predniSONE 20 MG TAB PO SCH ×2 (08:07→20:13)
[2020-11-13] MEDS: FLUOXETINE 20 MG CAP PO SCH ×3 (08:07→20:13)
[2020-11-13] MEDS ORDERED: predniSONE 20 MG TAB ONE ×2 (08:25→20:14)
[2020-11-13 08:47] LABS: Potassium 4.1 mmol/L (3.5-5.1)
[2020-11-13] MEDS: ARFORMOTEROL TARTRATE 15 MCG/2 ML VIAL.NEB NEB SCH ×2 (09:49→21:25)
--- NOTE | 2020-11-13 11:34 | PN ---
Date of Progress Note: 11/13/2020 Subjective: The patient was seen at the bedside. He remains in the ER holding area. Remains on hig h-flow oxygen. Objective: Vital Signs: Blood pressure is 104/85, pulse 77, afebrile. Input and output 1470 in and 1 L out. General: Cachectic, on high-flow cannula. No acute distress. Heart: Regular rate and rhythm. No murmurs, rubs, gallops. Lungs: Some scattered rhonchi noted. Abdomen: Soft, nontender, nondistended. Extremities: No significant edema. Laboratory Data: CBC; WBC 26, hemoglobin 12.6, hematocrit 39.4, platelet count 258. Serum chemistry ; potassium 4.1, BUN 75, creatinine 1. Current medications were reviewed. Impression: 1.Acute kidney injury likely in the setting of hemodynamic instability, which has improved. 2.Acute chronic obstructive pulmonary disease exacerbation. 3.Pneumonia. 4.Acute hypoxemic respiratory failure. Plan: Renal function is stable. Avoid NSAIDs and iodinated contrast. The patient may need maintena nce IV fluids if p.o. intake remains poor. We will defer steroids and antibiotics to Pulmonary Servi ce. SE/MODL Voice ID: [id number] Report ID: [id number]
[2020-11-13] MEDS: ENOXAPARIN 40 MG/0.4 ML SQ SCH (15:55)
[2020-11-13] MEDS ORDERED: ENOXAPARIN 40 MG/0.4 ML SQ ONE (16:13)
[2020-11-13] MEDS: FLUCONAZOLE 100 MG TAB PO SCH (20:13)
[2020-11-13] MEDS: MIRTAZAPINE 15 MG TAB PO SCH (20:13)
[2020-11-13] MEDS ORDERED: FLUCONAZOLE 100 MG TAB ONE (20:14)
[2020-11-13] MEDS: NYSTATIN 500,000 UNIT/5 ML UDC PO SCH (20:17)
[2020-11-13] MEDS ORDERED: NYSTATIN 500,000 UNIT/5 ML UDC ONE (20:31)
[2020-11-13] MEDS ORDERED: ARFORMOTEROL TARTRATE 15 MCG/2 ML VIAL.NEB ONE (20:49)
[2020-11-14] MEDS: LOPERAMIDE HCL FT SCH ×3 (00:34→16:38)
[2020-11-14 03:05] LABS: Urine Appearance CLEAR (Clear); Urine Bilirubin NEGATIVE (Negative); Urine Blood NEGATIVE (Negative); Urine Color YELLOW (Yellow); Urine Glucose NEGATIVE (Negative); Urine Protein NEGATIVE (Negative); Urine Specific Gravity 1.025 (1.005-1.030); Urine Urobilinogen 0.2 mg/dL (0.2-1.0); Urine pH 5.5 (5.0-7.0)
[2020-11-14 03:34] LABS: Urine Microscopic Reflex NO UMIC
[2020-11-14 05:11] LABS: Absolute Lymphocytes (CBC) 0.9 K/uL (0.7-4.9); Basophils % 0.1 % (0-1.3); Hematocrit 36.9 % (39.6-49.0); Lymphocytes % 3.6 % (15.3-44.8); MPV 9.7 fL (7.6-11.3); RBC Red Blood Cell Count 4.09 M/uL (4.33-5.43)
[2020-11-14 05:19] LABS: Potassium 4.6 mmol/L (3.5-5.1)
[2020-11-14] MEDS: ARFORMOTEROL TARTRATE 15 MCG/2 ML VIAL.NEB NEB SCH ×2 (07:58→20:00)
[2020-11-14] MEDS: CYANOCOBALAMIN 1,000 MCG TAB PO SCH (09:35)
[2020-11-14] MEDS: FLUCONAZOLE 100 MG TAB PO SCH (09:35)
[2020-11-14] MEDS: LACTOBACILLUS/ACIDOPHILUS TAB PO SCH ×3 (09:35→20:36)
[2020-11-14] MEDS: FLUOXETINE 20 MG CAP PO SCH ×3 (09:36→20:36)
[2020-11-14] MEDS: predniSONE 20 MG TAB PO SCH ×2 (09:36→20:37)
[2020-11-14] MEDS: NYSTATIN 500,000 UNIT/5 ML UDC PO SCH ×4 (09:39→20:36)
--- NOTE | 2020-11-14 14:34 | P.PN ---
Subjective Date of Service: 11/14/20 Primary Care Provider: unknown Chief Complaint: Respiratory failure Subjective: Improving, Doing well Physical Examination - Vital Signs Temperature: 97.3 F Blood Pressure: 102/75 Pulse: 83 Respirations: 22 Pulse Ox (%): 99 - Studies Medications List Reviewed: Yes Assessment & Plan Discharge Plan: Other (SNF) Plan to discharge in: Greater than 2 days Physician Review Additional Text: Physical Exam: GENERAL: Currently on 2 L per nasal cannula. at bedside. His service petdog also present. Patient has done well. VITAL SIGNS: Reviewed NECK: Supple. No carotid bruits. No lymphadenopathy or thyromegaly. LUNGS: Good air movement bilateral HEART: Regular rate and rhythm ABDOMEN: Soft. EXTREMITIES: Without any cyanosis, clubbing, rash, lesions or peripheral edema. NEUROLOGIC: Patient remains intubated and sedated SKIN: Normal color, turgor and temperature. No ulcerations or rashes noted. Impression: Dyspnea secondary to acute respiratory failure related to right upper lobe pneumonia likely aspirationbilateral pleural effusions suspect underlying acute on chronic diastolic CHF COPD Hypertension PTSD Anemia of chronic disease Chronic pain with neuropathy Diarrhea likely from Kayexalate Plan: Dyspnea secondary to acute respiratory failure related to right upper lobe pneumonia likely aspiration/bilateral pleural effusions suspect underlying acute on chronic diastolic CHF: Patient continues to improve. Continue prednisone. Continue to wean off oxygen. Currently on 2 L per nasal cannula. Physical therapy to continue to evaluate and assess. Patient does not meet criteria for LTAC or inpatient rehab. Spoke at length with patient, and daughter concerning patient's plan of care. We will pursue skilled placement. Family to evaluate local skilled facility. Continue DVT prophylaxis. Will monitor closely. Anticipate continued improvement. Anticipate possible discharge to skilled facility in the next 3 to 5 days. Acute renal injury with chronic renal disease stage III likely medication relatedNSAIDs: Overall improved. Continue nephrology recommendations. PTSD: Continue Prozac, mirtazapine and Elavil. Hold mirtazapine and Elavil if with increased sedation. COPD: Continue COPD medication. On oral steroid. Hypertension: Continue to hold metoprolol. No need for medication at this time. Anemia of chronic disease: We will monitor closely. Chronic pain with neuropathy: Patient previously on Lyrica. Continue to hold medication. Consider restarting once the patient is more alert. We will provide pain medication as needed. Diarrhea likely from Kayexalate: No further diarrhea noted.. Code Status: Full Code DVT prophylaxis: Lovenox Advanced Care Planning-30 minutes: Discussed at length with Millicent at [phone]. Pursue skilled placement in the local area. Plan of care also discussed with patient and who agree with plan. Time Spent Managing Pts Care (In Minutes): 55
[2020-11-14] MEDS: ENOXAPARIN 40 MG/0.4 ML SQ SCH (17:22)
[2020-11-14] MEDS: IPRATROPIUM BROM 0.5MG/2.5ML NEB PRN (20:00)
[2020-11-14] MEDS: MIRTAZAPINE 15 MG TAB PO SCH (20:37)
[2020-11-14] MEDS: ENSURE ENLIVE 237 ML CAN PO SCH (20:37)
[2020-11-15] MEDS: LOPERAMIDE HCL FT SCH ×2 (00:38→09:00)
[2020-11-15] MEDS: ENSURE ENLIVE 237 ML CAN PO SCH ×2 (09:00→21:56)
[2020-11-15] MEDS: ARFORMOTEROL TARTRATE 15 MCG/2 ML VIAL.NEB NEB SCH ×2 (09:49→20:20)
[2020-11-15] MEDS: CYANOCOBALAMIN 1,000 MCG TAB PO SCH (11:03)
[2020-11-15] MEDS: NYSTATIN 500,000 UNIT/5 ML UDC PO SCH ×4 (11:03→21:55)
[2020-11-15] MEDS: LACTOBACILLUS/ACIDOPHILUS TAB PO SCH ×3 (11:03→21:55)
[2020-11-15] MEDS: predniSONE 20 MG TAB PO SCH ×2 (11:03→21:55)
[2020-11-15] MEDS: FLUCONAZOLE 100 MG TAB PO SCH (11:03)
[2020-11-15] MEDS: FLUOXETINE 20 MG CAP PO SCH ×3 (11:03→21:55)
[2020-11-15] MEDS ORDERED: LOPERAMIDE HCL FT PRN (12:23)
--- NOTE | 2020-11-15 16:19 | P.PN ---
Subjective Date of Service: 11/15/20 Primary Care Provider: unknown Chief Complaint: Respiratory failure Subjective: Improving, Doing well Physical Examination - Vital Signs Temperature: 96.9 F Blood Pressure: 103/68 Pulse: 124 Respirations: 20 Pulse Ox (%): 99 - Studies Medications List Reviewed: Yes Assessment & Plan Discharge Plan: Other (assisted facility) Plan to discharge in: 48 Hours Physician Review Additional Text: Physical Exam: GENERAL: Currently on 2 L per nasal cannula. Patient reports improvement. VITAL SIGNS: Reviewed NECK: Supple. No carotid bruits. No lymphadenopathy or thyromegaly. LUNGS: Good air movement bilateral HEART: Regular rate and rhythm ABDOMEN: Soft. EXTREMITIES: Without any cyanosis, clubbing, rash, lesions or peripheral edema. NEUROLOGIC: Patient remains intubated and sedated SKIN: Normal color, turgor and temperature. No ulcerations or rashes noted. Impression: Dyspnea secondary to acute respiratory failure related to right upper lobe pneumonia likely aspirationbilateral pleural effusions suspect underlying acute on chronic diastolic CHF COPD Hypertension PTSD Anemia of chronic disease Chronic pain with neuropathy Diarrhea likely from Kayexalate Plan: Dyspnea secondary to acute respiratory failure related to right upper lobe pneumonia likely aspiration/bilateral pleural effusions suspect underlying acute on chronic diastolic CHF: Patient continues to improve. Patient doing well this time. Continue prednisone. Continue to wean off oxygen. Currently on 2 L per nasal cannula. Physical therapy to continue to evaluate and assess. Patient does not meet criteria for LTAC or inpatient rehab. Spoke at length with patient, and daughter concerning patient's plan of care. Continue to pursue skilled placement. Family to evaluate local skilled facility. Continue DVT prophylaxis. Will monitor closely. Anticipate continued improvement. Anticipate possible discharge to skilled facility in the next 3 to 5 days. Acute renal injury with chronic renal disease stage III likely medication relatedNSAIDs: Overall improved. Continue nephrology recommendations. PTSD: Continue Prozac, mirtazapine and Elavil. Hold mirtazapine and Elavil if with increased sedation. COPD: Continue COPD medication. On oral steroid. Hypertension: Continue to hold metoprolol. No need for medication at this time. Anemia of chronic disease: We will monitor closely. Chronic pain with neuropathy: Patient previously on Lyrica. Continue to hold medication. Consider restarting once the patient is more alert. We will provide pain medication as needed. Diarrhea likely from Kayexalate: No further diarrhea noted.. Code Status: Full Code DVT prophylaxis: Lovenox Advanced Care Planning-30 minutes: Discussed at length with Millicent at [phone] yesterday. Pursue skilled placement in the local area. Plan of care also discussed with patient and who agree with plan. Time Spent Managing Pts Care (In Minutes): 55
[2020-11-15] MEDS: ENOXAPARIN 40 MG/0.4 ML SQ SCH (18:23)
[2020-11-15] MEDS: MIRTAZAPINE 15 MG TAB PO SCH (21:55)
[2020-11-16 07:04] LABS: Absolute Lymphocytes (CBC) 0.9 K/uL (0.7-4.9); Basophils % 0.2 % (0-1.3); Hematocrit 34.8 % (39.6-49.0); Lymphocytes % 3.8 % (15.3-44.8); MPV 9.6 fL (7.6-11.3)
[2020-11-16 07:21] LABS: BUN Blood Urea Nitrogen 47 mg/dL (7-18); Bicarbonate 28 mmol/L (21-32); Glucose Level 135 mg/dL (74-106); Magnesium 2.4 mg/dL (1.8-2.4); Potassium 4.3 mmol/L (3.5-5.1); Sodium Level 140 mmol/L (136-145)
[2020-11-16] MEDS: ARFORMOTEROL TARTRATE 15 MCG/2 ML VIAL.NEB NEB SCH ×2 (08:30→20:20)
[2020-11-16] MEDS: ALBUTEROL 2.5 MG/3 ML NEB SOL NEB PRN ×2 (08:30→13:10)
[2020-11-16] MEDS: IPRATROPIUM BROM 0.5MG/2.5ML NEB PRN ×3 (08:30→20:20)
[2020-11-16] MEDS: ENSURE ENLIVE 237 ML CAN PO SCH ×2 (09:00→21:06)
[2020-11-16] MEDS: FLUOXETINE 20 MG CAP PO SCH ×3 (09:29→21:06)
[2020-11-16] MEDS: predniSONE 20 MG TAB PO SCH ×2 (09:29→21:06)
[2020-11-16] MEDS: LACTOBACILLUS/ACIDOPHILUS TAB PO SCH ×3 (09:29→21:06)
[2020-11-16] MEDS: CYANOCOBALAMIN 1,000 MCG TAB PO SCH (09:29)
[2020-11-16] MEDS: NYSTATIN 500,000 UNIT/5 ML UDC PO SCH ×4 (09:37→21:06)
--- NOTE | 2020-11-16 13:53 | P.PN ---
Subjective Date of Service: 11/16/20 Primary Care Provider: unknown Chief Complaint: Respiratory failure Subjective: Improving, Doing well Physical Examination - Vital Signs Temperature: 96.8 F Blood Pressure: 98/55 Pulse: 90 Respirations: 18 Pulse Ox (%): 93 - Studies Medications List Reviewed: Yes Assessment & Plan Discharge Plan: Other (group home facility) Plan to discharge in: 48 Hours Physician Review Additional Text: Physical Exam: GENERAL: Currently on 2 L per nasal cannula. Patient reports improvement. VITAL SIGNS: Reviewed NECK: Supple. No carotid bruits. No lymphadenopathy or thyromegaly. LUNGS: Good air movement bilateral HEART: Regular rate and rhythm ABDOMEN: Soft. EXTREMITIES: Without any cyanosis, clubbing, rash, lesions or peripheral edema. NEUROLOGIC: Patient remains intubated and sedated SKIN: Normal color, turgor and temperature. No ulcerations or rashes noted. Impression: Dyspnea secondary to acute respiratory failure related to right upper lobe pneumonia likely aspirationbilateral pleural effusions suspect underlying acute on chronic diastolic CHF COPD Hypertension PTSD Anemia of chronic disease Chronic pain with neuropathy Diarrhea likely from Kayexalate Plan: Dyspnea secondary to acute respiratory failure related to right upper lobe pneumonia likely aspiration/bilateral pleural effusions suspect underlying acute on chronic diastolic CHF: Patient continues to improve. Overall stable. Patient doing well this time. Continue prednisone. Continue to wean off oxygen. Currently on 2 L per nasal cannula. Physical therapy to continue to evaluate and assess. Patient does not meet criteria for LTAC or inpatient re hab. Spoke at length with patient, and daughter concerning patient's plan of care the other day. Continue to pursue skilled placement. Patient in agreement with plan of care. Family to evaluate local skilled facility. Continue DVT prophylaxis. Will monitor closely. Anticipate continued improvement. Anticipate possible discharge to skilled facility in the next 3 to 5 days. Acute renal injury with chronic renal disease stage III likely medication relatedNSAIDs: Overall improved. Continue nephrology recommendations. PTSD: Continue Prozac, mirtazapine and Elavil. Hold mirtazapine and Elavil if with increased sedation. COPD: Continue COPD medication. On oral steroid. Hypertension: Continue to hold metoprolol. No need for medication at this time. Anemia of chronic disease: We will monitor closely. Chronic pain with neuropathy: Patient previously on Lyrica. Continue to hold medication. Consider restarting once the patient is more alert. We will provide pain medication as needed. Diarrhea likely from Kayexalate: No further diarrhea noted.. Code Status: Full Code DVT prophylaxis: Lovenox Advanced Care Planning-30 minutes: Continue to pursue skilled placement in the local area. Time Spent Managing Pts Care (In Minutes): 55
[2020-11-16] MEDS: ENOXAPARIN 40 MG/0.4 ML SQ SCH (17:43)
[2020-11-16] MEDS: MIRTAZAPINE 15 MG TAB PO SCH (21:06)
--- NOTE | 2020-11-16 21:47 | P.PN ---
Date of Service: 11/16/20 Vital Signs Temp Pulse Resp BP Pulse Ox 97.7 F 82 16 98/69 94 11/16/20 20:00 11/16/20 20:00 11/16/20 20:00 11/16/20 20:00 11/16/20 20:00 Medications Acetaminophen (Acetaminophen 500 Mg Tab) 500 mg PO Q4HP PRN PRN Reason: Pain scale 2-4 (Mild) Last Admin: 11/07/20 17:43 Dose: 500 mg Documented by: Albuterol Sulfate (Albuterol 2.5 Mg/3 Ml Neb Daisy) 2.5 mg NEB [id number] PRN PRN Reason: SHORTNESS OF BREATH Last Admin: 11/16/20 13:10 Dose: 2.5 mg Documented by: Arformoterol Tartrate (Arformoterol Tartrate 15 Mcg/2 Ml Vial.Neb) 15 mcg NEB BIDRESP [facility] Last Admin: 11/16/20 08:30 Dose: 15 mcg Documented by: Benzonatate (Benzonatate 100 Mg Cap) 100 mg PO TID PRN PRN Reason: COUGH Cyanocobalamin (Cyanocobalamin 1,000 Mcg Tab) 1,000 mcg PO DAILY [facility] Last Admin: 11/16/20 09:29 Dose: 1,000 mcg Documented by: Enoxaparin Sodium (Enoxaparin 40 Mg/0.4 Ml) 40 mg SQ DAILY 5 PM [facility] Last Admin: 11/16/20 17:43 Dose: 40 mg Documented by: Fluoxetine HCl (Fluoxetine 20 Mg Cap) 20 mg PO TID [facility] Last Admin: 11/16/20 21:06 Dose: 20 mg Documented by: Hydralazine HCl (Hydralazine Hcl 20 Mg/Ml Vial) 5 mg IV Q8H PRN PRN Reason: Titrate to SBP (MUST DEFINE) Sodium Chloride (Sodium Chloride) 250 mls @ 999 mls/hr IV Q15M PRN PRN Reason: HYPOTENSION Last Admin: 11/14/20 15:54 Dose: 250 mls Documented by: Ipratropium [place] (Ipratropium Brom 0.5mg/2.5ml) 0.5 mg NEB [id number] PRN PRN Reason: SHORTNESS OF BREATH Last Admin: 11/16/20 13:10 Dose: 0.5 mg Documented by: Lactobacillus Acidoph/Bulgaricus (Lactobacillus/Acidophilus Tab) 1 tab PO TID [facility] Last Admin: 11/16/20 21:06 Dose: 1 tab Documented by: Mirtazapine (Mirtazapine 15 Mg Tab) 15 mg PO BEDTIME [facility] Last Admin: 11/16/20 21:06 Dose: 15 mg Documented by: Loperamide Hcl 1 Mg Per 7.5 Ml Oral Solution 1 ea FT Q8HP PRN PRN Reason: DIARRHEA Nutritional Formula (Ensure Enlive 237 Ml Can) 237 ml PO BID [facility] Last Admin: 11/16/20 21:06 Dose: 237 ml Documented by: Nystatin (Nystatin 500,000 Unit/5 Ml Udc) 500,000 unit PO QID [facility] Last Admin: 11/16/20 21:06 Dose: 500,000 unit Documented by: Ondansetron HCl (Ondansetron 4 Mg/2 Ml Vial) 4 mg IV Q6HP PRN PRN Reason: NAUSEA / VOMITING Ondansetron HCl (Ondansetron 4 Mg (Odt) Tab) 4 mg PO Q6H PRN PRN Reason: NAUSEA / VOMITING Last Admin: 10/29/20 04:51 Dose: 4 mg Documented by: Prednisone (Prednisone 20 Mg Tab) 20 mg PO BID [facility] Last Admin: 11/16/20 21:06 Dose: 20 mg Documented by: Sodium Chloride (Flush Normal Saline 10 Ml) 10 ml IV BID [facility] Last Admin: 11/16/20 21:00 Dose: 10 ml Documented by: Microbiology Results 10/27/20 22:10 Blood - Blood Aerobic Blood Culture - Final 10/27/20 22:10 Blood - Blood Blood Culture Gram Stain - Final 10/27/20 22:10 Blood - Blood Anaerobic Blood Culture - Final No growth in 5 days. 10/27/20 22:21 Blood - Blood Aerobic Blood Culture - Final 10/27/20 22:21 Blood - Blood Blood Culture Gram Stain - Final 10/27/20 22:21 Blood - Blood Anaerobic Blood Culture - Final No growth in 5 days. Assessment/ Plan: Nephrology Feeling better. Fatigue and weakness. No acute events overnight Vitals, medications, blood work and imaging reviewed in the chart. General: NAD. Bipap PRN. HEENT: Atraumatic Neck: Supple Respiratory: Symmetric Cardiovascular: Regular rate/rhythm Gastrointestinal: Soft and benign, Non-distended Musculoskeletal: No clubbing, No contractures Integumentary: No cyanosis Neurological: Normal speech Laboratory Data (last 24 hrs) 10/27/20 21:19: PT 13.2 H, INR 1.15 10/27/20 21:19: WBC 9.10, Hgb 12.0 L, Hct 34.2 L, Plt Count 236 10/27/20 21:19: Sodium 128 L, Potassium 5.0, BUN 41 H, Creatinine 1.89 H, Glucose 101, Magnesium 3.9 H*, Total Bilirubin 0.6, AST 42 H, ALT 33, Alkaline Phosphatase 68 Imagings Data: EXAM DESCRIPTION: RAD - Chest Single View - 10/28/2020 1:00 pm CLINICAL HISTORY: Possible pneumonia hypoxemia Chest pain. COMPARISON: Chest Single View dated 10/27/2020; THORAX WO CONTRAST dated 12/12/2014 FINDINGS: Portable technique limits examination quality. Little overall change is seen in the aeration of lungs since prior study. The heart is normal in size. Right total shoulder arthroplasty. IMPRESSION: Stable chest since 10/27/2020. EXAM DESCRIPTION: RAD - Chest Single View - 11/09/2020 9:35 am CLINICAL HISTORY: hypoxia COMPARISON: November 06 TECHNIQUE: AP portable chest image was obtained 11/09/2020 9:35 am . FINDINGS: Endotracheal tube is no longer identifiable. Enteric tube has been removed as well. Extensive interstitial and alveolar opacification present in the lung neff. This appears worse than the comparison. Some of the apparent progression is due to lower lung volumes. Heart and vasculature are normal. No measurable pleural effusion and no pneumothorax. IMPRESSION: Progressive interstitial and alveolar opacification from November 06 exam only partially due to artifact from lower lung volume. Conclusions/Impression: RAJWINDER likely due to excessive NSAID therapy, resolved -No NSAIDs Hyponatremia -Continue Lasix Hyperkalemia Hypocalcemia -Consider Vitamin D Hypermagnesemia Moderate malnutrition -Maintain nutrition -Continue probiotic Anemia in chronic illness Iron deficiency 6% -Consider IV iron supplementation -Transfuse PRBC as needed RUL PNA Acute hypoxic respiratory failure -Continue Bipap as needed -Continue steroids
[2020-11-17] MEDS: IPRATROPIUM BROM 0.5MG/2.5ML NEB PRN ×2 (08:45→21:10)
[2020-11-17] MEDS: ARFORMOTEROL TARTRATE 15 MCG/2 ML VIAL.NEB NEB SCH ×2 (08:45→21:10)
[2020-11-17] MEDS: ALBUTEROL 2.5 MG/3 ML NEB SOL NEB PRN (08:45)
[2020-11-17] MEDS: ENSURE ENLIVE 237 ML CAN PO SCH ×2 (09:00→21:00)
[2020-11-17] MEDS: LACTOBACILLUS/ACIDOPHILUS TAB PO SCH ×3 (09:17→21:34)
[2020-11-17] MEDS: predniSONE 20 MG TAB PO SCH ×2 (09:18→21:34)
[2020-11-17] MEDS: PREGABALIN 50 MG CAP PO SCH ×2 (09:18→21:33)
[2020-11-17] MEDS: CYANOCOBALAMIN 1,000 MCG TAB PO SCH (09:18)
[2020-11-17] MEDS: NYSTATIN 500,000 UNIT/5 ML UDC PO SCH ×4 (09:18→21:34)
[2020-11-17] MEDS: FLUOXETINE 20 MG CAP PO SCH ×3 (09:18→21:34)
--- NOTE | 2020-11-17 16:02 | P.PN ---
Subjective Date of Service: 11/17/20 Primary Care Provider: unknown Chief Complaint: Respiratory failure Subjective: Improving, Doing well Physical Examination - Vital Signs Temperature: 97.2 F Blood Pressure: 106/66 Pulse: 99 Respirations: 20 Pulse Ox (%): 100 - Studies Medications List Reviewed: Yes Assessment & Plan Discharge Plan: Other ([facility] facility) Plan to discharge in: 48 Hours Physician Review Additional Text: Physical Exam: GENERAL: Currently on 2 L per nasal cannula. Patient reports improvement. VITAL SIGNS: Reviewed NECK: Supple. No carotid bruits. No lymphadenopathy or thyromegaly. LUNGS: Good air movement bilateral HEART: Regular rate and rhythm ABDOMEN: Soft. EXTREMITIES: Without any cyanosis, clubbing, rash, lesions or peripheral edema. NEUROLOGIC: Patient remains intubated and sedated SKIN: Normal color, turgor and temperature. No ulcerations or rashes noted. Impression: Dyspnea secondary to acute respiratory failure related to right upper lobe pneumonia likely aspirationbilateral pleural effusions suspect underlying acute on chronic diastolic CHF COPD Hypertension PTSD Anemia of chronic disease Chronic pain with neuropathy Diarrhea likely from Kayexalate Plan: Dyspnea secondary to acute respiratory failure related to right upper lobe pneumonia likely aspiration/bilateral pleural effusions suspect underlying acute on chronic diastolic CHF: Patient continues to improve. Overall stable. Patient doing well this time. Continue prednisone. Continue to wean off oxygen. Currently on 2 L per nasal cannula. Physical therapy to continue to evaluate and assess. Patient does not meet criteria for LTAC or inpatient rehab. Patient has agreed to go to a skilled facility. Anticipate possible discharge to skilled facility once approved Acute renal injury with chronic renal disease stage III likely medication relatedNSAIDs: Overall improved. Continue nephrology recommendations. PTSD: Continue Prozac, mirtazapine and Elavil. Hold mirtazapine and Elavil if with increased sedation. COPD: Continue COPD medication. On oral steroid. Hypertension: Continue to hold metoprolol. No need for medication at this time. Anemia of chronic disease: We will monitor closely. Chronic pain with neuropathy: Patient previously on Lyrica. Continue to hold medication. Consider restarting once the patient is more alert. We will provide pain medication as needed. Diarrhea likely from Kayexalate: No further diarrhea noted.. Code Status: Full Code DVT prophylaxis: Lovenox Advanced Care Planning-30 minutes: Continue to pursue skilled placement in the local area. Time Spent Managing Pts Care (In Minutes): 55
[2020-11-17] MEDS: ENOXAPARIN 40 MG/0.4 ML SQ SCH (16:23)
--- NOTE | 2020-11-17 16:27 | P.PN ---
Date of Service: 11/17/20 Vital Signs Temp Pulse Resp BP Pulse Ox 97.2 F 99 H 20 106/66 100 11/17/20 16:02 11/17/20 16:02 11/17/20 16:02 11/17/20 16:02 11/17/20 16:02 Medications Acetaminophen (Acetaminophen 500 Mg Tab) 500 mg PO Q4HP PRN PRN Reason: Pain scale 2-4 (Mild) Last Admin: 11/07/20 17:43 Dose: 500 mg Documented by: Albuterol Sulfate (Albuterol 2.5 Mg/3 Ml Neb Daisy) 2.5 mg NEB [id number] PRN PRN Reason: SHORTNESS OF BREATH Last Admin: 11/17/20 08:45 Dose: 2.5 mg Documented by: Arformoterol Tartrate (Arformoterol Tartrate 15 Mcg/2 Ml Vial.Neb) 15 mcg NEB BIDRESP [facility] Last Admin: 11/17/20 08:45 Dose: 15 mcg Documented by: Benzonatate (Benzonatate 100 Mg Cap) 100 mg PO TID PRN PRN Reason: COUGH Cyanocobalamin (Cyanocobalamin 1,000 Mcg Tab) 1,000 mcg PO DAILY [facility] Last Admin: 11/17/20 09:18 Dose: 1,000 mcg Documented by: Enoxaparin Sodium (Enoxaparin 40 Mg/0.4 Ml) 40 mg SQ DAILY 5 PM [facility] Last Admin: 11/16/20 17:43 Dose: 40 mg Documented by: Fluoxetine HCl (Fluoxetine 20 Mg Cap) 20 mg PO TID [facility] Last Admin: 11/17/20 13:36 Dose: 20 mg Documented by: Hydralazine HCl (Hydralazine Hcl 20 Mg/Ml Vial) 5 mg IV Q8H PRN PRN Reason: Titrate to SBP (MUST DEFINE) Sodium Chloride (Sodium Chloride) 250 mls @ 999 mls/hr IV Q15M PRN PRN Reason: HYPOTENSION Last Admin: 11/14/20 15:54 Dose: 250 mls Documented by: Ipratropium [place] (Ipratropium Brom 0.5mg/2.5ml) 0.5 mg NEB [id number] PRN PRN Reason: SHORTNESS OF BREATH Last Admin: 11/17/20 08:45 Dose: 0.5 mg Documented by: Lactobacillus Acidoph/Bulgaricus (Lactobacillus/Acidophilus Tab) 1 tab PO TID [facility] Last Admin: 11/17/20 13:36 Dose: 1 tab Documented by: Mirtazapine (Mirtazapine 15 Mg Tab) 15 mg PO BEDTIME [facility] Last Admin: 11/16/20 21:06 Dose: 15 mg Documented by: Loperamide Hcl 1 Mg Per 7.5 Ml Oral Solution 1 ea FT Q8HP PRN PRN Reason: DIARRHEA Nutritional Formula (Ensure Enlive 237 Ml Can) 237 ml PO BID [facility] Last Admin: 11/17/20 09:00 Dose: 237 ml Documented by: Nystatin (Nystatin 500,000 Unit/5 Ml Udc) 500,000 unit PO QID [facility] Last Admin: 11/17/20 13:36 Dose: 500,000 unit Documented by: Ondansetron HCl (Ondansetron 4 Mg/2 Ml Vial) 4 mg IV Q6HP PRN PRN Reason: NAUSEA / VOMITING Ondansetron HCl (Ondansetron 4 Mg (Odt) Tab) 4 mg PO Q6H PRN PRN Reason: NAUSEA / VOMITING Last Admin: 10/29/20 04:51 Dose: 4 mg Documented by: Prednisone (Prednisone 20 Mg Tab) 20 mg PO BID [facility] Last Admin: 11/17/20 09:18 Dose: 20 mg Documented by: Pregabalin (Pregabalin 50 Mg Cap) 50 mg PO BID [facility] Last Admin: 11/17/20 09:18 Dose: 50 mg Documented by: Sodium Chloride (Flush Normal Saline 10 Ml) 10 ml IV BID [facility] Last Admin: 11/17/20 09:00 Dose: 10 ml Documented by: Microbiology Results 10/27/20 22:10 Blood - Blood Aerobic Blood Culture - Final 10/27/20 22:10 Blood - Blood Blood Culture Gram Stain - Final 10/27/20 22:10 Blood - Blood Anaerobic Blood Culture - Final No growth in 5 days. 10/27/20 22:21 Blood - Blood Aerobic Blood Culture - Final 10/27/20 22:21 Blood - Blood Blood Culture Gram Stain - Final 10/27/20 22:21 Blood - Blood Anaerobic Blood Culture - Final No growth in 5 days. Assessment/ Plan: Nephrology Feeling better this morning. Fatigue and weakness. Short episode of hypotension and AMS overnight. Vitals, medications, blood work and imaging reviewed in the chart. General: NAD. Bipap PRN. HEENT: Atraumatic Neck: Supple Respiratory: Symmetric Cardiovascular: Regular rate/rhythm Gastrointestinal: Soft and benign, Non-distended Musculoskeletal: No clubbing, No contractures Integumentary: No cyanosis Neurological: Normal speech Laboratory Data (last 24 hrs) 10/27/20 21:19: PT 13.2 H, INR 1.15 10/27/20 21:19: WBC 9.10, Hgb 12.0 L, Hct 34.2 L, Plt Count 236 10/27/20 21:19: Sodium 128 L, Potassium 5.0, BUN 41 H, Creatinine 1.89 H, Glucose 101, Magnesium 3.9 H*, Total Bilirubin 0.6, AST 42 H, ALT 33, Alkaline Phosphatase 68 Imagings Data: EXAM DESCRIPTION: RAD - Chest Single View - 10/28/2020 1:00 pm CLINICAL HISTORY: Possible pneumonia hypoxemia Chest pain. COMPARISON: Chest Single View dated 10/27/2020; THORAX WO CONTRAST dated 12/12/2014 FINDINGS: Portable technique limits examination quality. Little overall change is seen in the aeration of lungs since prior study. The heart is normal in size. Right total shoulder arthroplasty. IMPRESSION: Stable chest since 10/27/2020. EXAM DESCRIPTION: RAD - Chest Single View - 11/09/2020 9:35 am CLINICAL HISTORY: hypoxia COMPARISON: November 06 TECHNIQUE: AP portable chest image was obtained 11/09/2020 9:35 am . FINDINGS: Endotracheal tube is no longer identifiable. Enteric tube has been removed as well. Extensive interstitial and alveolar opacification present in the lung neff. This appears worse than the comparison. Some of the apparent progression is due to lower lung volumes. Heart and vasculature are normal. No measurable pleural effusion and no pneumothorax. IMPRESSION: Progressive interstitial and alveolar opacification from November 06 exam only partially due to artifact from lower lung volume. Conclusions/Impression: RAJWINDER likely due to excessive NSAID therapy, resolved -No NSAIDs Hyponatremia -Lasix prn Hyperkalemia Hypocalcemia -Start Vitamin D Hypermagnesemia Moderate malnutrition -Maintain nutrition -Continue probiotic Anemia in chronic illness Iron deficiency 6% -Start IV iron -Transfuse PRBC as needed RUL PNA Acute hypoxic respiratory failure -Continue Bipap as needed -Wean steroids
[2020-11-17] MEDS: SOD FERRIC GLUC COMPLX/SUCROSE 125 MG in NA CHLORIDE 0.9% 100 ML IV SCH (17:45)
[2020-11-17] MEDS: MIRTAZAPINE 15 MG TAB PO SCH (21:34)
[2020-11-18 07:34] LABS: Basophils % 0.1 % (0-1.3); Hematocrit 29.2 % (39.6-49.0); Lymphocytes % 4.9 % (15.3-44.8); MPV 9.3 fL (7.6-11.3)
[2020-11-18] MEDS: ARFORMOTEROL TARTRATE 15 MCG/2 ML VIAL.NEB NEB SCH (08:19)
[2020-11-18] MEDS ORDERED: VITAMIN D 5,000 UNIT CAP PO SCH (09:00)
[2020-11-18] MEDS: ENSURE ENLIVE 237 ML CAN PO SCH (09:00)
[2020-11-18] MEDS: predniSONE 20 MG TAB PO SCH (09:08)
[2020-11-18] MEDS: PREGABALIN 50 MG CAP PO SCH (09:08)
[2020-11-18] MEDS: LACTOBACILLUS/ACIDOPHILUS TAB PO SCH ×2 (09:08→13:59)
[2020-11-18] MEDS: NYSTATIN 500,000 UNIT/5 ML UDC PO SCH ×3 (09:08→16:03)
[2020-11-18] MEDS: FLUOXETINE 20 MG CAP PO SCH ×2 (09:08→13:59)
[2020-11-18] MEDS: CYANOCOBALAMIN 1,000 MCG TAB PO SCH (09:09)
[2020-11-18 09:42] LABS: Blood Morphology Comment NOT SEEN (NOT SEEN); Platelet Estimate DECR
--- NOTE | 2020-11-18 10:27 | P.PN ---
Subjective Date of Service: 11/18/20 Primary Care Provider: unknown Chief Complaint: Respiratory failure Subjective: Improving, Doing well Physical Examination - Vital Signs Temperature: 97.0 F Blood Pressure: 108/67 Pulse: 73 Respirations: 16 Pulse Ox (%): 92 - Studies Medications List Reviewed: Yes Assessment & Plan [facility] ([facility] Plan to discharge in: 24 Hours Physician Review Additional Text: Physical Exam: GENERAL: Currently on 2 L per nasal cannula. Patient reports improvement. VITAL SIGNS: Reviewed NECK: Supple. No carotid bruits. No lymphadenopathy or thyromegaly. LUNGS: Good air movement bilateral HEART: Regular rate and rhythm ABDOMEN: Soft. EXTREMITIES: Without any cyanosis, clubbing, rash, lesions or peripheral edema. NEUROLOGIC: Patient remains intubated and sedated SKIN: Normal color, turgor and temperature. No ulcerations or rashes noted. Impression: Dyspnea secondary to acute respiratory failure related to right upper lobe pneumonia likely aspirationbilateral pleural effusions suspect underlying acute on chronic diastolic CHF COPD Hypertension PTSD Anemia of chronic disease Chronic pain with neuropathy Diarrhea likely from Kayexalate Plan: Dyspnea secondary to acute respiratory failure related to right upper lobe pneumonia likely aspiration/bilateral pleural effusions suspect underlying acute on chronic diastolic CHF: Patient doing well at this time. Patient continues to work well with physical therapy. Speech recommends to advance diet to regular diet with thin liquids. Aspiration precaution in place. Continue prednisone. Continue to wean off oxygen. Currently on 2 L per nasal cannula. Awaiting approval for skilled placement. Anticipate possible approval today. If accepted can be discharged. Acute renal injury with chronic renal disease stage III likely medication relatedNSAIDs: Overall improved. Continue nephrology recommendations. PTSD: Continue Prozac, mirtazapine and Elavil. Continue to hold mirtazapine and Elavil if with increased sedation. COPD: Continue COPD medication. On oral steroid. Hypertension: Continue to hold metoprolol. No need for medication at this time. Anemia of chronic disease: We will monitor closely. Chronic pain with neuropathy: Patient previously on Lyrica. Continue to hold medication. Consider restarting once the patient is more alert. We will provide pain medication as needed. Diarrhea likely from Kayexalate: No further diarrhea noted.. Code Status: Full Code DVT prophylaxis: Lovenox Advanced Care Planning-30 minutes: Continue to pursue skilled placement in the local area. Time Spent Managing Pts Care (In Minutes): 55
[2020-11-18] MEDS: SOD FERRIC GLUC COMPLX/SUCROSE 125 MG in NA CHLORIDE 0.9% 100 ML IV SCH (10:32)
[2020-11-18 11:30] VITALS: O2SAT 94
--- NOTE | 2020-11-18 14:08 | P.DS ---
Admission Date: 10/27/20 Discharge Date: 11/18/20 Primary Care Provider: unknown Disposition: TRANSFER TO SNF - MEDICAL Discharge Condition: GOOD Reason for Admission: Respiratory failure Consultations: Pulmonary-Dr. Coffey Procedures: COVID: Negative CT chest: FINDINGS: Exam is degraded by respiratory motion. No pulmonary emboli are identified. The aorta as imaged shows no acute or suspicious finding. No pericardial thickening or effusion. Endotracheal tube is in place. Tip is mid aortic arch level. This is approximately 2.5 cm above the debbie. NG tube extends into the proximal stomach. Interstitial and alveolar opacities are scattered throughout both lung neff. Posterior gutter atelectasis present on the right. No dense consolidation seen in either lung field. Patient has minimal bilateral pleural effusions. No pneumothorax. No pneumomediastinum. No mediastinal or hilar suspicious masses. No chest wall masses or abnormal axillary lymphadenopathy. IMPRESSION: Motion degraded study shows no pulmonary emboli. Minimal bilateral pleural effusions with posterior gutter atelectasis on the right. Patient has interstitial and alveolar opacities scattered throughout both lung neff. No dense mass or consolidations seen. Endotracheal tube tip is mid aortic arch level 2.5 cm above the debbie. ECHO: MEASUREMENTS (cm) DIASTOLIC (NORMALS) SYSTOLIC (NORMALS) IVSd 1.0 (0.6-1.2) LA Diam 2.6 (1.9-4.0) LVEF 67% LVIDd 4.3 (3.5-5.7) LVIDs 2.7 (2.0-3.5) %FS 37% LVPWd 1.1 (0.6-1.2) Ao Diam 3.3 (2.0-3.7) 2 DIMENSIONAL ASSESSMENT: RIGHT ATRIUM: NORMAL LEFT ATRIUM: NORMAL RIGHT VENTRICLE: NORMAL LEFT VENTRICLE: NORMAL TRICUSPID VALVE: NORMAL MITRAL VALVE: NORMAL PULMONIC VALVE: NORMAL AORTIC VALVE: NORMAL PERICARDIAL EFFUSION: NONE AORTIC ROOT: NORMAL LEFT VENTRICULAR WALL MOTION: NORMAL DOPPLER/COLOR FLOW: MILD TRICUSPID REGURGITATION. RIGHT VENTRICULAR SYSTOLIC PRESSURE 29 mmHg. COMMENTS: NORMAL 2D ECHOCARDIOGRAM WITH DOPPLER. NO PULMONARY HYPERTENSION. NO WALL MOTION ABNORMALITY. NO EFFUSION. Follow up CXR: FINDINGS: Portable technique limits examination quality. Bilateral pulmonary opacities show no significant change since prior study. The heart is normal in size. Right-sided PICC line is in place. IMPRESSION: Stable chest since 11/09/2020. Medical problem list: Dyspnea secondary to acute respiratory failure related to right upper lobe pneumonia likely aspirationbilateral pleural effusions suspect underlying acute on chronic diastolic CHF COPD Hypertension PTSD Anemia of chronic disease Chronic pain with neuropathy Diarrhea likely from Kayexalate, resolved Brief History of Present Illness: 70 yo Cauc[place] male with COPD and HTN here today for increased SOB and HATFIELD for the past week. Sats of 49% on arrival, improved on BiPAP. He reports cough productive of green sputum, wheezing, and malaise. Denies nausea, vomiting, diarrhea, night sweats and chills. COVID negative. CXR consistent with pneumonia. He says he has been feeling weak for the past 4 months. Na 128. Cl 89. BUN 41. Cr 1.89. GFR 35. Mg 3.9. Ca 10.5. BNP 1049. procal 3.47. trop 0.21. Urine dipstick - blood, 2+ protein. Patient admitted for further evaluation and treatment. Hospital Course: Patient presented with dyspnea secondary to acute respiratory failure related to right upper lobe pneumonia likely aspiration with bilateral pleural effusions. This was complicated likely with underlying acute on chronic diastolic CHF and COPD. His hospitalization was prolonged. Patient required intubation. He was eventually extubated. Patient has done well post extubation. Patient was evaluated for skilled placement. Patient agreed. Patient has been accepted. Patient will continue at skilled facility. At discharge patient will continue with prednisone 20 mg 1 pill twice daily for 7 days then 1 pill once daily for 7 days. Patient will continue with COPD medication including Brovana 1 unit dose twice daily, albuterol 1 unit dose 3 times a day as needed for shortness of breath and Atrovent 1 unit dose 3 times a day as needed for shortness of breath. Tessalon Perles 100 mg 3 times a day as needed for cough will be provided. Patient will also continue with vitamin B12 supplementation and Ensure 1 can twice daily for supplementation. Patient remains on oxygen on 2 L per nasal cannula. This can be weaned off over time. Recommend follow up with pulmonology in 1-2 weeks to follow up this hospitalization and continue his care. Kelly recheck chest x-ray in 2-4 weeks to monitor resolution. Patient with acute renal injury likely with underlying chronic renal disease stage III. This was likely related to his prior NSAID use. Nephrology was consulted. Patient now back to baseline. Recommend no further use of nonsteroidal anti-inflammatories. Recommend to recheck lab-BMP in 1-2 weeks to monitors progress. Patient may follow up with Nephrology in 2-4 weeks to monitor his progress. Patient with underlying PTSD. This has remained stable. At discharge patient will continue with Prozac 20 mg 3 times a day and mirtazapine 15 mg at bedtime. Elavil has been discontinued. Patient with COPD. Patient will continue with COPD medication-Brovana 1 unit dose twice daily and albuterol 1 unit dose 3 times a day as needed for shortness of breath and Atrovent 1 unit dose 3 times a day as needed for shortness of breath. Patient will also continue with prednisone 20 mg 1 pill twice daily for 7 days then 1 pill once daily for 7 days. Patient remains on oxygen. Patient currently on 2 L per nasal cannula. Continue to wean off over time. Recommend follow up with pulmonology as an outpatient to further monitor and adjust medication. Patient with history of hypertension. Patient previously on metoprolol and hydralazine. Both medication had been discontinued. Blood pressures have been stable without the need for medication. Recommended no need for medication at discharge. Recommend to monitor blood pressure daily. If blood pressures remain above 140/90 then the patient may require medication in the future. This can be further monitored and addressed by his PCP. Patient with chronic pain and neuropathy. Patient may continue with current medication-Lyrica 50 mg 1 pill twice daily. Vital Signs/Physical Exam: Temp Pulse Resp BP Pulse Ox 98.3 F 86 16 113/71 95 11/18/20 12:00 11/18/20 12:00 11/18/20 12:00 11/18/20 12:00 11/18/20 12:00 General: Alert, In no apparent distress, Oriented x3, Cooperative HEENT: Atraumatic Neck: Supple Respiratory: Clear to auscultation bilaterally, Normal air movement Cardiovascular: Normal pulses, Regular rate/rhythm Gastrointestinal: Normal bowel sounds, Soft and benign, Non-distended, No tenderness, No masses, No rebound, No guarding Musculoskeletal: No erythema, No tenderness, No warmth Integumentary: No tenderness/swelling Neurological: Normal speech, Normal strength at 5/5 x4 extr, Normal tone, Normal affect Laboratory Data at Discharge: WBC 21.20 K/uL (4.3-10.9) H* 11/18/20 06:55 Hgb 9.8 g/dL (13.6-17.9) L 11/18/20 06:55 Hct 29.2 % (39.6-49.0) L D 11/18/20 06:55 Plt Count 143 K/uL (152-406) L 11/18/20 06:55 PT 13.2 SECONDS (9.5-12.5) H 10/27/20 21:19 INR 1.15 10/27/20 21:19 Sodium 140 mmol/L (136-145) 11/16/20 06:44 Potassium 4.3 mmol/L (3.5-5.1) 11/16/20 06:44 BUN 47 mg/dL (7-18) H 11/16/20 06:44 Creatinine 0.69 mg/dL (0.55-1.3) 11/16/20 06:44 Glucose 135 mg/dL (74-106) H 11/16/20 06:44 Uric Acid 7.8 mg/dL (3.5-7.2) H 10/30/20 05:15 Phosphorus 4.1 mg/dL (2.5-4.9) 11/11/20 06:13 Magnesium 2.4 mg/dL (1.8-2.4) 11/16/20 06:44 Total Bilirubin 0.4 mg/dL (0.2-1.0) 11/05/20 05:13 AST 32 U/L (15-37) 11/05/20 05:13 ALT 76 U/L (12-78) 11/05/20 05:13 Alkaline Phosphatase 70 U/L (45-117) 11/05/20 05:13 Troponin I 0.39 ng/mL (0.0-0.045) H 10/28/20 17:35 Home Medications: Cyanocobalamin [Vitamin B-12*] 1,000 mcg PO DAILY 10/28/20 Fluoxetine HCl 20 mg PO TID 10/28/20 Mirtazapine 15 mg PO DAILY 10/28/20 Pregabalin 150 mg PO TID 10/28/20 Albuterol Neb [Proventil 0.083% Neb Soln] 1 unit NEB [id number] PRN #120 amp 11/18/20 Arformoterol Tartrate [Brovana] 1 unit NEB BIDRESP #60 vial.neb 11/18/20 Benzonatate [Tessalon Perle*] 100 mg PO TID PRN #30 cap 11/18/20 Ensure Enlive 237 ml PO BID #60 can 11/18/20 Ipratropium Neb [Atrovent*] 1 unit NEB [id number] PRN #120 amp 11/18/20 Pregabalin [Lyrica*] 50 mg PO BID #60 cap 11/18/20 predniSONE [Prednisone*] 20 mg PO SEECOM #21 tab 11/18/20 New Medications: Ipratropium Neb [Atrovent*] 1 unit NEB [id number] PRN #120 amp PRN Reason: Shortness Of Breath Arformoterol Tartrate [Brovana] 1 unit NEB BIDRESP #60 vial.neb Ensure Enlive 237 ml PO BID #60 can Pregabalin [Lyrica*] 50 mg PO BID #60 cap predniSONE [Prednisone*] 20 mg PO SEECOM #21 tab Albuterol Neb [Proventil 0.083% Neb Soln] 1 unit NEB [id number] PRN #120 amp PRN Reason: Shortness Of Breath Benzonatate [Tessalon Perle*] 100 mg PO TID PRN #30 cap PRN Reason: Cough Physician Discharge Instructions: Patient presented with dyspnea secondary to acute respiratory failure related to right upper lobe pneumonia likely aspiration with bilateral pleural effusions. This was complicated likely with underlying acute on chronic diastolic CHF and COPD. His hospitalization was prolonged. Patient required intubation. He was eventually extubated. Patient has done well post extubation. Patient was evaluated for skilled placement. Patient agreed. Patient has been accepted. Patient will continue at skilled facility. At discharge patient will continue with prednisone 20 mg 1 pill twice daily for 7 days then 1 pill once daily for 7 days. Patient will continue with COPD medication including Brovana 1 unit dose twice daily, albuterol 1 unit dose 3 times a day as needed for shortness of breath and Atrovent 1 unit dose 3 times a day as needed for shortness of breath. Tessalon Perles 100 mg 3 times a day as needed for cough will be provided. Patient will also continue with vitamin B12 supplementation and Ensure 1 can twice daily for supplementation. Patient remains on oxygen on 2 L per nasal cannula. This can be weaned off over time. Recommend follow up with pulmonology in 1-2 weeks to follow up this hospitalization and continue his care. Recommend to recheck chest x-ray in 2-4 weeks to monitor resolution. Patient with acute renal injury likely with underlying chronic renal disease stage III. This was likely related to his prior NSAID use. Nephrology was consulted. Patient now back to baseline. Recommend no further use of nonsteroidal anti-inflammatories. Recommend to recheck lab-BMP in 1-2 weeks to monitors progress. Patient may follow up with Nephrology in 2-4 weeks to monitor his progress. Patient with underlying PTSD. This has remained stable. At discharge patient will continue with Prozac 20 mg 3 times a day and mirtazapine 15 mg at bedtime. Elavil has been discontinued. Patient with COPD. Patient will continue with COPD medication-Brovana 1 unit dose twice daily and albuterol 1 unit dose 3 times a day as needed for shortness of breath and Atrovent 1 unit dose 3 times a day as needed for shortness of breath. Patient will also continue with prednisone 20 mg 1 pill twice daily for 7 days then 1 pill once daily for 7 days. Patient remains on oxygen. Patient currently on 2 L per nasal cannula. Continue to wean off over time. Recommend follow up with pulmonology as an outpatient to further monitor and adjust medication. Patient with history of hypertension. Patient previously on metoprolol and hydralazine. Both medication had been discontinued. Blood pressures have been stable without the need for medication. Recommended no need for medication at discharge. Recommend to monitor blood pressure daily. If blood pressures remain above 140/90 then the patient may require medication in the future. This can be further monitored and addressed by his PCP. Patient with chronic pain and neuropathy. Patient may continue with current medication-Lyrica 50 mg 1 pill twice daily. Diet: Regular/th Activity: Fall precautions Followup: Unknown,U [Primary Care Provider] - Time spent managing pt's care (in minutes): 55
[2020-11-18] MEDS: ENOXAPARIN 40 MG/0.4 ML SQ SCH (16:03)
--- NOTE | 2020-11-18 17:31 | P.PN ---
Date of Service: 11/18/20 Vital Signs Temp Pulse Resp BP Pulse Ox 97.5 F 87 16 117/64 99 11/18/20 16:00 11/18/20 16:00 11/18/20 16:00 11/18/20 16:00 11/18/20 16:00 Microbiology Results 10/27/20 22:10 Blood - Blood Aerobic Blood Culture - Final 10/27/20 22:10 Blood - Blood Blood Culture Gram Stain - Final 10/27/20 22:10 Blood - Blood Anaerobic Blood Culture - Final No growth in 5 days. 10/27/20 22:21 Blood - Blood Aerobic Blood Culture - Final 10/27/20 22:21 Blood - Blood Blood Culture Gram Stain - Final 10/27/20 22:21 Blood - Blood Anaerobic Blood Culture - Final No growth in 5 days. Assessment/ Plan: Nephrology Doing well. Worked with PT this morning. Fatigue and weakness. No acute events overnight. Vitals, medications, blood work and imaging reviewed in the chart. General: NAD. HEENT: Atraumatic Neck: Supple Respiratory: Symmetric Cardiovascular: Regular rate/rhythm Gastrointestinal: Soft and benign, Non-distended Musculoskeletal: No clubbing, No contractures Integumentary: No cyanosis Neurological: Normal speech Laboratory Data (last 24 hrs) 10/27/20 21:19: PT 13.2 H, INR 1.15 10/27/20 21:19: WBC 9.10, Hgb 12.0 L, Hct 34.2 L, Plt Count 236 10/27/20 21:19: Sodium 128 L, Potassium 5.0, BUN 41 H, Creatinine 1.89 H, Glucose 101, Magnesium 3.9 H*, Total Bilirubin 0.6, AST 42 H, ALT 33, Alkaline Phosphatase 68 Imagings Data: EXAM DESCRIPTION: RAD - Chest Single View - 10/28/2020 1:00 pm CLINICAL HISTORY: Possible pneumonia hypoxemia Chest pain. COMPARISON: Chest Single View dated 10/27/2020; THORAX WO CONTRAST dated 12/12/2014 FINDINGS: Portable technique limits examination quality. Little overall change is seen in the aeration of lungs since prior study. The heart is normal in size. Right total shoulder arthroplasty. IMPRESSION: Stable chest since 10/27/2020. EXAM DESCRIPTION: RAD - Chest Single View - 11/09/2020 9:35 am CLINICAL HISTORY: hypoxia COMPARISON: November 06 TECHNIQUE: AP portable chest image was obtained 11/09/2020 9:35 am . FINDINGS: Endotracheal tube is no longer identifiable. Enteric tube has been removed as well. Extensive interstitial and alveolar opacification present in the lung neff. This appears worse than the comparison. Some of the apparent progression is due to lower lung volumes. Heart and vasculature are normal. No measurable pleural effusion and no pneumothorax. IMPRESSION: Progressive interstitial and alveolar opacification from November 06 exam only partially due to artifact from lower lung volume. Conclusions/Impression: RAJWINDER likely due to excessive NSAID therapy, resolved -No NSAIDs Hyponatremia -Lasix prn Hyperkalemia Hypocalcemia -Continue Vitamin D Hypermagnesemia Moderate malnutrition -Maintain nutrition -Continue probiotic Anemia in chronic illness Iron deficiency 6% -Continue IV iron -Transfuse PRBC as needed RUL PNA Acute hypoxic respiratory failure -Continue Bipap as needed -Wean steroids
[2020-11-25 08:08] VITALS: BP 146/72; TEMP 98
== END 2020-11-18 16:31 | DRG 207 ==
LOC: ER 20:34 → ERHOLD 23:42 → 2ND 10-28 00:24 → ERHOLD 10-29 16:10 → 4TH 11-14 04:00
PROVIDERS: ADMIT Hospitalist; ATTEND Family Medicine
PROC: 5A09557 Assistance with Respiratory Ventilation, Greater than 96 Consecutive Hours, Continuous Positive Airway Pressure (ICD-10-PCS; 2020-10-28)
PROC: 5A1955Z Respiratory Ventilation, Greater than 96 Consecutive Hours (ICD-10-PCS; principal; 2020-10-29)
PROC: 0BH17EZ Insertion of Endotracheal Airway into Trachea, Via Natural or Artificial Opening (ICD-10-PCS; 2020-10-29)
PROC: 02HV33Z Insertion of Infusion Device into Superior Vena Cava, Percutaneous Approach (ICD-10-PCS; 2020-11-06)
DX: J69.0 Pneumonitis due to inhalation of food and vomit (principal); J96.01 Acute respiratory failure with hypoxia; I50.33 Acute on chronic diastolic (congestive) heart failure; N17.9 Acute kidney failure, unspecified; E87.1 Hypo-osmolality and hyponatremia; E44.0 Moderate protein-calorie malnutrition; E87.2 Acidosis; K52.1 Toxic gastroenteritis and colitis; J44.1 Chronic obstructive pulmonary disease with (acute) exacerbation; I13.0 Hypertensive heart and chronic kidney disease with heart failure and stage 1 through stage 4 chronic kidney disease, or unspecified chronic kidney disease; N18.30 Chronic kidney disease, stage 3 unspecified; F43.10 Post-traumatic stress disorder, unspecified; E83.51 Hypocalcemia; E87.5 Hyperkalemia; G62.9 Polyneuropathy, unspecified; D50.9 Iron deficiency anemia, unspecified; D72.829 Elevated white blood cell count, unspecified; G89.29 Other chronic pain; M54.5 Low back pain; L89.321 Pressure ulcer of left buttock, stage 1; E83.41 Hypermagnesemia; T50.3X5A Adverse effect of electrolytic, caloric and water-balance agents, initial encounter; R77.8 Other specified abnormalities of plasma proteins; Z79.899 Other long term (current) drug therapy; Z79.52 Long term (current) use of systemic steroids; Z68.22 Body mass index [BMI] 22.0-22.9, adult; Z78.1 Physical restraint status; Z20.822 Contact with and (suspected) exposure to COVID-19
CPT/HCPCS: 0240U; 36415; 36569; 70450; 71045; 71275; 80048; 80053; 80076; 80202; 81001; 81003; 82607; 82728; 82746; 82805; 82947; 83540; 83605; 83735; 83880; 84100; 84145; 84466; 84484; 84550; 85025; 85027; 85610; 86140; 87040; 87086; 87088; 87205; 92610; 93005; 93306; 94002; 94003; 94010; 94660; 96374; 96375; 97110; 97116; 97161; 97164; 97530; 99285; J0456; J0696; J1170; J1630; J1644; J1650; J1720; J1940; J2250; J2270; J2405; J2704; J2916; J2920; J3010; J3370; J7030; J7040; J7050; J7512; J7605; Q9967; U0003